=== PATIENT | male | born 1940 | race Caucasian/White ===

== ENCOUNTER 2021-11-21 11:40 | Emergency (ER) | payer MEDICARE, OTHER, SELFPAY ==
[2021-11-21 11:45] VITALS: BP 168/79; PULSE 75; RESP 18; TEMP 36.5; O2SAT 98; BMI 23.6
--- NOTE | 2021-11-21 11:59 | CRLHL7_ITS ---
For Patients: As a result of the Cures Act, medical imaging exams and procedure reports are released immediately into your electronic medical record. You may view this report before your referring provider. If you have questions, please contact your health care provider. INDICATION: Fall. COMPARISON: None. TECHNIQUE: Three view radiograph of left shoulder. FINDINGS: Partially visualized hemithorax is grossly unremarkable. Normal alignment. Joint spaces preserved. No fracture. IMPRESSION: No acute fracture or malalignment. Dictated by Chaparro Starks MD @ 11/21/2021 12:40:25 PM (Electronically Signed)
--- NOTE | 2021-11-21 12:00 | ED_ITS ---
HPI - General Adult General Chief complaint: Shoulder Injury/Pain Stated complaint: Fell, hurt left shoulder Time Seen by Provider: 11/21/21 11:52 History of Present Illness HPI narrative: This 81-year-old male comes in with report of injury to his left shoulder that occurred 3 days ago. He states that he fell onto his outstretched hand or arm and now has shoulder pain with an inability to abduct his left shoulder. He did not hit his head or have loss of consciousness. He does not report any other injury. He states that his right shoulder is due for a shoulder replacement and he is scheduled to have a CT scan done in 3 days for this shoulder. He is unable to raise his arm in empty can position but he can perform a lift-off and has normal internal and external rotation at adduction. Related Data Home Medications Medication Instructions Recorded Confirmed amlodipine 2.5 mg tablet 2.5 mg PO QDAY 10/12/21 11/04/21 atorvastatin 10 mg tablet 10 mg PO QDAY 10/12/21 11/04/21 esomeprazole magnesium 20 mg 20 mg PO QDAY 10/12/21 11/04/21 capsule,delayed release (Nexium) fexofenadine 60 mg tablet (Pam 60 mg PO Q12H 10/12/21 11/04/21 Allergy) finasteride 5 mg tablet 5 mg PO QDAY 10/12/21 11/04/21 tamsulosin 0.4 mg capsule 0.4 mg PO QDAY 10/12/21 11/04/21 Allergies Allergy/AdvReac Type Severity Reaction Status Date / Time No Known Allergies Allergy Unverified 11/04/21 13:54 Review of Systems Status of ROS: Reports: 10 or more systems reviewed and unremarkable except as noted in History and below Narrative: Constitutional: No fevers, no weight gain or loss. Eyes: No discharge. No vision changes. HENT: No congestion, no sore throat, no ear pain. Cardiovascular: No chest pain, no palpitations. Respiratory: No shortness of breath, no wheezes, no cough. Gastrointestinal: No abdominal pain, no vomiting, no diarrhea. Genitourinary: No dysuria, no hematuria. Musculoskeletal: Normal range of motion. Left shoulder pain with decreased range of motion. Skin: No rashes, no pruritis. Neurological: No dizziness, weakness, sensory change, speech change. Endo/Heme/Allergies: No bruising or bleeding. No polydipsia. Pysch: no suicidality, no anxiety, no insomnia. All other systems reviewed and are negative. [facility] Medical History (Updated 11/21/21 @ 13:06 by Gonzalo Ruelas MD) Acid reflux Anterior epistaxis Arthritis Elevated cholesterol FHx: bilateral hip replacements Hernia Kidney disease Social History Smoking Status: Former smoker Exam Narrative: Exam Narrative: Constitutional: Well-developed, well-nourished, no acute distress. HEENT: Normocephalic, atraumatic. Neck: Normal range of motion. Nontender. Supple. Heart: Intact distal pulses. Lungs: No chest discomfort. No wheezes, rhonchi, or rales. Abdomen: Nontender. Back: Normal range of motion. Extremities: Left shoulder has diffuse tenderness with no sign of deformity or effusion. Lift-off sign is normal. He has normal external and internal rotation at abduction but is unable to abduct his left arm. He is unable to raise his arm into an empty can position. Skin: Intact. No rash. Warm. No erythema or pallor. Neurologic: No altered sensation. No weakness. Alert and oriented. Psychiatric: No suicidality. No anxiety or depression. No insomnia. Nursing notes and vitals signs are reviewed. Const: Vital Signs, click to edit/add: Vital Signs - 24 hr 11/21/21 11:45 Temperature 97.7 F Pulse Rate [Right Pulse Oximeter] 75 Respiratory Rate 18 Blood Pressure [Le ft Upper Arm] 168/79 H Pulse Oximetry 98 Oxygen Delivery Me thod Room Air Course Vital Signs Vital signs: Initial Vital Signs Temperature 97.7 F 11/21/21 11:45 Temperature Source Temporal Artery Scan 11/21/21 11:45 Pulse Rate 75 11/21/21 11:45 Respiratory Rate 18 11/21/21 11:45 Blood Pressure 168/79 H 11/21/21 11:45 Blood Pressure Mean 108 11/21/21 11:45 Blood Pressure Position Sitting 11/21/21 11:45 Pulse Oximetry 98 11/21/21 11:45 Oxygen Delivery Method 11/21/21 11:45 Vital Signs Temperature 97.7 F 11/21/21 11:45 Pulse Rate 75 11/21/21 11:45 Respiratory Rate 18 11/21/21 11:45 Blood Pressure 168/79 H 11/21/21 11:45 Pulse Oximetry 98 11/21/21 11:45 Oxygen Delivery Method 11/21/21 11:45 Temperature 97.7 F 11/21/21 11:45 Pulse Rate 75 11/21/21 11:45 Respiratory Rate 18 11/21/21 11:45 Blood Pressure 168/79 H 11/21/21 11:45 Pulse Oximetry 98 11/21/21 11:45 Oxygen Delivery Method 11/21/21 11:45 Medical Decision Making MDM Narrative Medical decision making narrative: This patient comes in with an injury to his left shoulder. X-ray imaging shows no acute findings with respect to fracture or dislocation. His mechanism of injury is more suspicious for rotator cuff strain or tear. He is unable to raise his arm forward or laterally. Some of this is due to pain but there may be a ongoing deficit related to this fall. The patient was placed in a sling and a follow-up appointment is made with orthopedic clinic. Imaging Data XR L Shoulder: Radiologist's impression: No acute fracture or malalignment. Discharge Plan Discharge Clinical Impression: Tendinopathy of left rotator cuff Condition: Unchanged Additional Instructions: Follow-up with orthopedic clinic as scheduled. Wear sling and use [id number] pain medicines as needed and directed. Prescriptions: No Action atorvastatin 10 mg tablet 10 mg PO QDAY tamsulosin 0.4 mg capsule 0.4 mg PO QDAY esomeprazole magnesium [Nexium] 20 mg capsule,delayed release(DR/EC) 20 mg PO QDAY amlodipine 2.5 mg tablet 2.5 mg PO QDAY finasteride 5 mg tablet 5 mg PO QDAY fexofenadine [Pam Allergy] 60 mg tablet 60 mg PO Q12H Follow Up/Referrals: Provider,Not a Local [Referring] - Stand Alone Forms: [employer] Info Instructions
--- NOTE | 2021-11-21 13:19 | ED.NURSE ---
Patient scheduled with Dr. Winters for consult on 11/23/21 at 10:40, [facility] location. No questions/concerns about appt.
== END 2021-11-21 13:19 | disposition home or self-care (01) ==
PROVIDERS: Emergency Provider Emergency Medicine Emergency Medical Services; PCP Nurse Practitioner Family
DX: M25.512 Pain in left shoulder (principal); W19.XXXA Unspecified fall, initial encounter
CPT/HCPCS: 73030; 99283; 99284

== ENCOUNTER 2021-11-24 08:50 | Outpatient (CLI) | payer MEDICARE, OTHER, SELFPAY ==
--- OUTSIDE RECORDS SUMMARY | 2021-11-24 08:53 | XMS_ITS | Clinical Summary ---
:1940 Author Organization [employer] [facility] [place] [address] Care Team Providers Name Role Phone Sandrine Roque NP Primary Care Provider [phone] Allergies Active Allergy Reactions Severity Noted Date Comments Hydrocodone-Acetaminophen Hallucinations 01/01/2013 Lots of noise in head Medications Medication Sig Dispensed Refills Start End Date Status Date medication order composer FD baldev 0 Active (lei 1 oil and menthol) atorvastatin (LIPITOR) 10 Take 1 90 Tablet 3 Active mg tabletIndications: Tablet (10 1 Hypercholesterolemia mg) by mouth once daily. amLODIPine (NORVASC) 2.5 Take 1 90 Tablet 3 Active mg tabletIndications: Tablet (2.5 1 Essential hypertension mg) by mouth once daily. fexofenadine (Pam 0 Active Allergy) 180 mg tablet 2 finasteride (PROSCAR) 5 Take 1 90 Tablet 3 Active mg tabletIndications: Tablet (5 2 Frequent urination mg) by mouth every morning. tamsulosin (FLOMAX) 0.4 Take 1 90 Capsule 3 Active mg capsuleIndications: Capsule 2 BPH without urinary (0.4 mg) by obstruction mouth once daily in the afternoon. lei oil-levomenthol Take by 0 Active (FDgard) 25-20.75 mg cap mouth. 2 pantoprazole (PROTONIX) TAKE 1 180 Tablet 0 Active 40 mg delayed-release TABLET BY 2 tabletIndications: MOUTH IN Abdominal pain, LUQ (left THE MORNING upper quadrant), Chronic AND 1 GERD TABLET IN THE EVENING. TAKE BEFORE MEALS. pantoprazole (PROTONIX) Take 1 60 Tablet 0 Discontinued 40 mg delayed-release Tablet (40 2 22 tabletIndications: mg) by Abdominal pain, LUQ (left mouth in upper quadrant), Chronic the morning GERD and 1 Tablet (40 mg) in the evening. Take before meals. Active Problems Problem Noted Date Actinic keratosis 06/16/2021 Overview: Dec 22, 2011 Entered By: REJI DOLL Comment: Sees derm locally Hypertrophy of prostate without urinary obstruction an d other lower 06/16/2021 urinary tract symptoms (LUTS) Personal history of colonic polyps 06/16/2021 Sensorineural hearing loss (SNHL) 06/16/2021 Tinnitus 06/16/2021 Insomnia, idiopathic 06/16/2021 Stage 3a chronic kidney disease 01/21/2021 Anterior epistaxis 01/21/2021 Gastroesophageal reflux disease 08/04/2020 S/p nephrectomy 08/04/2020 Hyperlipidemia 08/04/2020 Essential hypertension 08/04/2020 Incisional hernia 12/11/2012 Resolved Problems Problem Noted Date Resolved Date Malignant neoplasm of right kidney, except renal pelvis 05/2606/16/2021 Encounters Date Type Specialty Care Team Description 11/21/2021 Orders Only Scanner <No scans attac hed> 11/10/2021 Refill Sandrine Roque Refill Re quest E, IMPLEMENTATION PROJECT COORDINATOR (Pantoprazole) 10/22/2021 Travel 10/20/2021 Office Visit Deion Villareal Consult (Abdom inal pain, MD Berhane worse when tryi ng to sleep at night, previous [facility] workup, sy mptoms x 10 years) 10/20/2021 Travel 10/19/2021 Telephone Brittani Bautista MBBS Follow U p 10/15/2021 Travel 10/14/2021 Office Visit Sandrine Roque Back Pain ; Abdominal E, IMPLEMENTATION PROJECT COORDINATOR Pain; Fatigue 10/13/2021 Travel 09/29/2021 Office Visit Natasha Gaines Consult (Funmi rn for MD Cristiane possible mesh r elated pain in hernia mesh) 09/28/2021 Travel 09/23/2021 Telephone Josias Aden MD Results 09/22/2021 Ancillary Procedure 09/22/2021 Travel 09/20/2021 Travel 09/17/2021 Office Visit Josias Aden MD Abdomin al Pain (Upper abdominal pain for several months. ); Leg Swelling (Ankle s swelling and so me numbness); Shou lder Pain/problem (R ight shoulder issues continue) 09/16/2021 Travel from Last 3 Months Immunizations Name Administration Dates Next Due COVID-19 vaccine ([employer] 12/31/2020, 05/27/2020, 30mcg/0.3mL) PF, MDV Influenza RIV4 (Age 18+ Years) 01/14/2019 PRESERV FREE Influenza Virus, Unspecified 12/22/2011 Influenza, High-dose Inactivated 12/31/2020, 11/23/2017, 02/2017, 01/05/2016, 01/06/2015, 12/16/2013, 01/04/2013, 12/14/2010 Influenza, IIV3 (Age 6-35 mos) 12/18/2009 Influenza, Inactivated AIIV4 (Age 65+ 01/20/2020 Years) Preserv Free Pneumococcal Poly,23-Valent 11/23/2017 (Pneumovax) Pneumococcal conj 13-Valent (Prevnar 01/06/2015 13) TD, UNSPECIFIED 12/22/2011 Tdap 01/09/2017 Zoster (Shingrix-RZV, recombinant) 04/05/2020, 02/05/2020 Zoster (Zostavax-ZVL, live) 01/03/2011, 10/25/2010 Social History Tobacco Use Types Packs/Day Years Used Date Former Smoker Smokeless Tobacco: Never Used Tobacco Cessation: Counseling Given: Yes Comments: 30 years ago Alcohol Use Standard Drinks/Week Comments Never 0 (1 standard drink = 0.6 oz pure alcoho l) Alcohol Habits Answer Date Recorded How often do you have a drink containing alcohol? Never 07/25/2020 How many drinks containing alcohol do you have on a typical Not asked day when you are drinking? How often do you have six or more drinks on one occasion? No t asked Comment: Not asked Sex Assigned at Date Recorded Male 10/10/2020 11:22 AM CDT Obstetrics History Last Filed Vital Signs Vital Sign Reading Time Taken Comments Blood Pressure 144/68 10/20/2021 2:43 PM CDT Pulse 70 10/20/2021 2:39 PM CDT Temperature 36.4 ??C (97.5 ??F) 09/30/2020 8:14 AM CDT Respiratory Rate 18 08/04/2021 10:53 AM CDT Oxygen Saturation 99% 10/20/2021 2:39 PM CDT Inhaled Oxygen Concentration - - Weight 77.5 kg (170 lb 12.8 oz) 10/20/2021 2:39 PM CDT Height 165.1 cm (5' 5) 06/16/2021 11:12 AM CDT Body Mass Index 28.42 06/16/2021 11:12 AM CDT Plan of Treatment Upcoming Encounters Date Type Specialty Care Team Description 11/30/2021 [place] [id number] [place], [place] [address] (Wo rk) 12/23/2021 Office Visit Brittani Bautista M [facility] [address] [place], [place] [address] (Wo rk) Health Maintenance Due Date Last Done Comments Influenza for age 65+ 11/25/2021 12/31/2020, 01/20/2020, 01/14/2019, Additional history exists Depression screening for age 12+ 01/21/2022 01/21/2021, , 11/06/2020 Medicare Wellness for age 65+ 01/21/2022 01/21/2021 BMI (ht and wt on same day) for 06/16/2022 06/16/2021, 12/26, age 18+ 11/06/2020, Additional history exists Tetanus booster 01/09/2027 01/09/2017, 12/22/2011 Tdap Completed 01/09/2017 Pneumococcal series for age 65+ Completed 11/23/2017, 12/25 Zoster (shingles) series for age Completed 04/05/2020, 01/2020, 50+ 01/03/2011, Additional history exists COVID-19 vaccine series Completed 07/07/2021, 12/31/2020, 05/27/2020, Additional history exists Procedures Procedure Name Priority Date/Time Associated Diagnosis Comme nts SCAN-RADIOLOGY REPORT 11/21/2021 12:00 Re sults for this AM CDT procedure are i n the results section. CBC WITH AUTO Routine 10/14/2021 12:09 Abdominal pain, LUQ Res ults for this DIFFERENTIAL PM CDT (left upper procedure are i n quadrant) the results section. COMP METABOLIC PANEL Routine 10/14/2021 12:09 Abdominal pain, LUQ Results for this PM CDT (left upper procedure are i n quadrant) the results section. CBC WITH AUTO Routine 10/14/2021 12:09 Abdominal pain, LUQ Res ults for this DIFFERENTIAL PM CDT (left upper procedure are i n quadrant) the results section. URINALYSIS Routine 10/14/2021 11:27 Acute low back pain, Res ults for this MICROSCOPIC AM CDT unspecified back procedure a re in pain laterality, the results unspecified whether section. sciatica present UA W/ SEDIMENT EXAM Routine 10/14/2021 11:27 Acute low back pa in, Results for this REFLEXED PER CRITERIA AM CDT unspecified back pr ocedure are in pain laterality, the results unspecified whether section. sciatica present XR SHOULDER 3 VIEWS Routine 09/22/2021 10:02 Chronic right Res ults for this RIGHT AM CDT shoulder pain procedure are in the results section. from Last 3 Months Results SCAN-RADIOLOGY REPORT (11/21/2021 12:00 AM CDT) Narrative This result has an attachment that is no t available. Scanner OTHER CBC WITH AUTO DIFFERENTIAL (10/14/2021 12:09 PM CDT) athologist Signature WHITE BLOOD 7.3 4.5 - 11.0 10/14/2021 [facility] COUNT thou/cu mm 12:12 PM CDT [facility] RED BLOOD COUNT 4.32 4.30 - 10/14/2021 [facility] 5.90 12:12 PM CDT [facility] mil/cu mm CLINIC HEMOGLOBIN 13.5 13.5 - 10/14/2021 [facility] 17.5 g/dL 12:12 PM CDT [facility] HEMATOCRIT 38.7 37.0 - 10/14/2021 [facility] 53.0 % 12:12 PM CDT [facility] MCV 90 80 - 100 10/14/2021 [facility] fL 12:12 PM CDT [facility] MCH 31.3 26.0 - 10/14/2021 [facility] 34.0 pg 12:12 PM CDT [facility] MCHC 34.9 32.0 - 10/14/2021 [facility] 36.0 g/dL 12:12 PM CDT [facility] RDW 13.0 11.5 - 10/14/2021 [facility] [employer] 15.5 % 12:12 PM CDT [facility] PLATELET COUNT 170 140 - 440 10/14/2021 [facility] thou/cu mm 12:12 PM CDT [facility] MPV 9.8 6.5 - 11.0 10/14/2021 [facility] fL 12:12 PM CDT [facility] NEUTROPHILS 70.5 % 10/14/2021 [facility] 12:12 PM CDT [facility] LYMPHOCYTES 18.5 % 10/14/2021 [facility] 12:12 PM CDT [facility] MONOCYTES 8.8 % 10/14/2021 [facility] 12:12 PM CDT [facility] EOSINOPHILS 1.2 % 10/14/2021 [facility] 12:12 PM CDT [facility] BASOPHILS 1.0 % 10/14/2021 [facility] 12:12 PM CDT [facility] ABSOLUTE 5.1 1.7 - 7.0 10/14/2021 [facility] NEUTROPHILS thou/cu mm 12:12 PM CDT [facility] ABSOLUTE 1.4 0.9 - 2.9 10/14/2021 [facility] LYMPHOCYTES thou/cu mm 12:12 PM CDT [facility] ABSOLUTE 0.6 <0.9 10/14/2021 [facility] MONOCYTES thou/cu mm 12:12 PM CDT [facility] ABSOLUTE 0.1 <0.5 10/14/2021 [facility] EOSINOPHILS thou/cu mm 12:12 PM CDT [facility] ABSOLUTE 0.1 <0.3 10/14/2021 [facility] BASOPHILS thou/cu mm 12:12 PM CDT [facility] Specimen Anatomical Collection Method / Collection Time Recei iris Time (Source) Location / Volume Laterality Blood BLOOD SPECIMEN / Venipuncture / 10/14/2021 12:09 10/14 Unknown Unknown PM CDT 12:09 PM CDT Sandrine Roque IMPLEMENTATION PROJECT COORDINATOR HEMATOLOGY Performing Organization Address City/State/ZIP Code Phon e Number [facility] [id number] [place] [phone] CLINIC (ABNORMAL) COMP METABOLIC PANEL (10/14/2021 12:09 PM CDT) [facility] Method Time Signature SODIUM 131 (L) 135 - 145 10/15/2021 [facility] [employer] mmol/L 1:58 AM CDT [facility] POTASSIUM 4.5 3.5 - 5.0 10/15/2021 [facility] [employer] mmol/L 1:58 AM CDT [facility] CHLORIDE 99 98 - 110 10/15/2021 [facility] [employer] mmol/L 1:58 AM CDT [facility] CO2,TOTAL 20 (L) 21 - 31 10/15/2021 [facility] mmol/L 1:58 AM CDT [facility] ANION GAP 12 5 - 18 10/15/2021 [facility] [employer] 1:58 AM CDT [facility] GLUCOSE 116 (H) 65 - 100 10/15/2021 [facility] mg/dL 1:58 AM CDT [facility] CALCIUM 9.4 8.5 - 10/15/2021 [facility] [employer] 10.5 1:58 AM CDT [facility] mg/dL [facility] BUN 15 8 - 25 10/15/2021 [facility] mg/dL 1:58 AM CDT [facility] CREATININE 1.41 (H) 0.72 - 10/15/2021 [facility] [employer] 1.25 1:58 AM CDT [facility] mg/dL [facility] BUN/CREAT RATIO 11 10 - 20 10/15/2021 [facility] [employer] 1:58 AM CDT [facility] ALBUMIN 3.9 3.2 - 4.6 10/15/2021 [facility] [employer] g/dL 1:58 AM CDT [facility] PROTEIN,TOTAL 7.6 6.0 - 8.0 10/15/2021 [facility] g/dL 1:58 AM CDT [facility] GLOBULIN 3.7 2.0 - 3.7 10/15/2021 [facility] g/dL 1:58 AM CDT [facility] A/G RATIO 1.1 1.0 - 2.0 10/15/2021 [facility] 1:58 AM CDT [facility] BILIRUBIN,TOTAL 0.7 0.2 - 1.2 10/15/2021 [facility] mg/dL 1:58 AM CDT [facility] ALK PHOSPHATASE 79 50 - 136 10/15/2021 [facility] [employer] IU/L 1:58 AM CDT [facility] ALT (SGPT) 17 8 - 45 10/15/2021 [facility] IU/L 1:58 AM CDT [facility] AST (SGOT) 25 2 - 40 10/15/2021 [facility] IU/L 1:58 AM CDT [facility] eGFR 50 (L) >90 10/15/2021 [employer] mL/min/1. 1:58 AM CDT [facility] 73m2 [facility] Comment: As of 2021, eGFR is calcu lated by the CKD-EPI creatinine equation without race adjustment. eGFR can be inf luenced by muscle mass, exercise, and diet. The reported eGFR is an estimation only and is only applicable if the renal function is stable. Specimen Anatomical Collection Method / Collection Time Recei iris Time (Source) Location / Volume Laterality Blood BLOOD SPECIMEN / Venipuncture / 10/14/2021 12:09 10/14 Unknown Unknown PM CDT 12:09 PM CDT Sandrine Roque NP CHEMISTRY Performing Organization Address City/State/ZIP Code Phon e Number [facility] [address] [place] [address] [facility] [address] LAB[facility]ATORY URINALYSIS MICROSCOPIC (10/14/2021 11:27 AM CDT) P athologist Signature RBC 0-2 0-2, None 10/14/2021 [employer] Seen /HPF 11:38 AM CDT [facility] WBC 3-5 0-2, 3-5, 10/14/2021 [facility] None Seen 11:38 AM CDT [facility] /HPF CLINIC BACTERIA Few None Seen, 10/14/2021 [facility] Rare, Few 11:38 AM CDT [facility] Bacteria/H CLINIC PF EPITHELIAL Few None Seen, 10/14/2021 [facility] CELLS Few 11:38 AM CDT [facility] Epi/HPF CLINIC Specimen Anatomical Collection Method Collection Time Receive d Time (Source) Location / / Volume Laterality Urine URINE SPECIMEN / Non-Blood / 10/14/2021 11:27 022 Unknown Unknown AM CDT 11:27 AM CDT Sandrine Roque NP URINE Performing Organization Address City/State/ZIP Code Phon e Number [facility] [address] [place] [phone] CLINIC (ABNORMAL) UA W/ SEDIMENT EXAM REFLEXED PER CRITERIA (10/14/2021 11:27 AM CDT) [facility] Method Time Signature COLOR Yellow Yellow Color 10/14/2021 [facility] 11:38 AM [facility] CLARITY Clear Clear 10/14/2021 [facility] Clarity 11:38 AM [facility] SPECIFIC 1.010 1.010, 10/14/2021 [facility] GRAVITY,URINE 1.015, 11:38 AM [facility] 1.020, 1.025 T CLINIC PH,URINE 6.5 6.0, 7.0, 10/14/2021 [facility] 8.0, 5.5, 11:38 AM [facility] 6.5, 7.5, T CLINIC 8.5 UROBILINOGEN, Normal Normal EU/dl 10/14/2021 [facility] HEALT H QUALITATIVE 11:38 AM [facility] PROTEIN, Trace (A) Negative 10/14/2021 [facility] URINE mg/dL 11:38 AM [facility] GLUCOSE, Negative Negative 10/14/2021 [facility] URINE mg/dL 11:38 AM [facility] KETONES,URINE Negative Negative 10/14/2021 [facility] mg/dL 11:38 AM [facility] BILIRUBIN,URI Negative Negative 10/14/2021 [facility] NE 11:38 AM [facility] OCCULT Negative Negative 10/14/2021 [facility] BLOOD,URINE 11:38 AM [facility] NITRITE Negative Negative 10/14/2021 [facility] 11:38 AM [facility] LEUKOCYTE Moderate (A) Negative 10/14/2021 [facility] ESTERASE 11:38 AM [facility] Specimen Anatomical Collection Method Collection Time Receive d Time (Source) Location / / Volume Laterality Urine URINE SPECIMEN / Non-Blood / 10/14/2021 11:27 022 Unknown Unknown AM CDT 11:27 AM CDT Sandrine Lupe Mya [place] URINE Performing Organization Address City/State/ZIP Code Phon e Number [facility] [address] [place] [phone] CLINIC XR SHOULDER 3 VIEWS RIGHT (09/22/2021 10:02 AM CDT) Anatomical Region Laterality Modality SHOULDERS, SHOULDER R Computed Radiograp hy Specimen (Source) Anatomical Collection Method Collection Time Re ceived Time Location / / Volume Laterality 09/22/2021 2:10 PM CDT Narrative 09/22/2021 2:10 PM CDT For Patients: ??As a result of the Cures Act, medical imaging exams and procedure report s are released immediately into your [email or web address] medical record. ??You may view this report before your referring provider. ??If you have questions, please contact your health care provider. Indication: Chronic right shoulder pain. Three Technique: Three views. Comparison: None. Findings/Impression: Mild glenohumeral joint space narrowing. Moderate degenerative changes AC joint. Superior displacement of the humeral head likely due to chronic full-thickness rotator cuff tears. Generalized osseous demineralization. No fracture. Dictated by Arpit Valdivia MD @ Sep 22 ??2:10PM (Electronically Signed) ?? Procedure Note Arpit Valdivia MD - 09/22/2021Form atting of this note might be different from the original. For Patients: As a result of the Cures Act, medical imaging exams and procedure reports are released immediately into your electronic medical record. You may view this report before your referring provider. If you have questions, please contact [facility] health care provider. Indication: Chronic right shoulder pain. Three Technique: Three views. Comparison: None. Findings/Impression: Mild glenohumeral joint space narrowing. Moderate degenerative changes AC joint. Superior displacement of the humeral head likely due to chronic full-thickness rotator cuff tears. Generalized osseous demineralization. No fracture. Dictated by Arpit Valdivia MD @ Sep 22 2:10PM (Electronically Signed) Josias Aden MD GENERAL IMAGING from Last 3 Months Insurance Payer Benefit Plan / Subscriber ID Effective Dates Phone Addre ss Type Group MEDICARE PART B MEDICARE PART B [id number] 2012-Present ATTN: CLAIMS - HB USE ONLY HB ONLY [address] [place] [address] MEDICARE - PB MEDICARE PB [id number] 2004-Presen ATT N: CLAIMS USE ONLY ONLY t [address] [place] [address] FOR [id number] 2013-Prese [address] [facility] [place] [address] Care Teams Associate Professor Of Physics Relationship Specialty Start Date End Date Sandrine Roque NP PCP - General Nurse Practitioner 11/06/20 [address] [place] [address]
--- OUTSIDE RECORDS SUMMARY | 2021-11-24 08:53 | XMS_ITS | Continuity of Care Document ---
:1940 Author Organization [facility] Care Team Providers Name Role Phone [facility] Unavailable Unavailable Problems Combined list of problems from Department of Defense and 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 It does not include entries that were removed or entered in error. 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 [facility] Reflux Disorder [facility] Hyperlipidemia Active Condition MAX J Terell [facility] Hypertrophy (Benign) Active Condition [facility] of Prostate without [facility] Urinary obstruction and other lower Uri Nonspecific abnormal Active Condition [facility] electrocardiogram [facility] (ECG) (EKG) (ICD-9-CM 794.31) Personal History of Active Condition MAX JTerell [place] Colonic Polyps [facility] SENSORNEUR HEARING Active Condition [facility] NOS [facility] SURGERY Active Condition Dec 21, DARCI SOSA 2011 Entered [facility] By: Miky DOLL Comment: SP cholycystecto my, ventral hernia repair, tonsillectomy , Dec 22, 2011 Entered By: Miky DOLL Comment: SP appendectomy, right KAYLA times two, left KAYLA, Dec 22, 2011 Entered By: Miky DOLL Comment: SP right nephrectomy, partial colectomy Tinnitus * (ICD-9-CM Active Condition [facility] 388.30) HCS Diagnosis: ICD-10-CM active Diagnosis [place] H90.3 [facility]ural [facility] hearing loss, bilateralwith Provider Comments: Sensorineural hearing loss, bilateral Medications Combined list of outpatient medications from Department of Defense and 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 Medications provided include 1) outpatient medications from the last 15 months, and 2) patient-reported medications. Medication Details Route Status Patient Prescription Prescription Last Ordering Order Source Instructions Expires Number Dispense Provider Date Date AMLODIPINE Active [id number] ORTEGA 11 1/ Pharmac BESYLATE 2020 y Data (AMLODIPINE Transac BESYLATE), tion 2.5 MG, Service TABLET, Facilit ORAL, y [facility] [employer], 1000 ea. BOTTLE AMLODIPINE Active [id number] ORTEGA 02/24 3/ Pharmac BESYLATE 2020 Data (AMLODIPINE Transac BESYLATE), tion 2.5 MG, Service TABLET, Facilit ORAL, y [employer], 1000 ea. BOTTLE AMLODIPINE Active [id number] ORTEGA 02/2 5/ Pharmac BESYLATE 2021 y Data (AMLODIPINE Transac BESYLATE), tion 2.5 MG, Service TABLET, Facilit ORAL, y [employer], 1000 ea. BOTTLE AMLODIPINE Active [id number] ORTEGA 10/26 2/ Pharmac BESYLATE 2021 Data (AMLODIPINE Transac BESYLATE), tion 2.5 MG, Service TABLET, Facilit ORAL, EPIC [email or web address], 1000 ea. BOTTLE AMLODIPINE Active [id number] ORTEGA 06/0 1/ Pharmac BESYLATE 2 ,2021 y Data (AMLODIPINE Transac BESYLATE), tion 2.5 MG, Service TABLET, Facilit ORAL, y [employer], 1000 ea. BOTTLE AMLODIPINE Active [id number] ORTEGA 12/25 1/ Pharmac BESYLATE , 2020 y Data (amlodipine Transac besylate), tion 2.5 MG, Service TABLET, Facilit ORAL, LUPIN y PHARMACE[facility], 90 ea. BOTTLE AMLODIPINE Active [id number] LUZ, 09/20/ Pharmac BESYLATE 1 2020 y Data (amlodipine Transac besylate), tion 2.5 MG, Service TABLET, Facilit ORAL, LUPIN y [facility]ARMACE[facility], 90 ea. BOTTLE AMLODIPINE Active [id number] LUZ, 10/14/ Pharmac BESYLATE 1 2020 y Data (amlodipine Transac besylate), tion 2.5 MG, Service TABLET, Facilit ORAL, LUPIN y [facility]ARMACE[facility], 90 ea. BOTTLE AMLODIPINE Active [id number] LUZ, 11/07/ Pharmac BESYLATE 1 2020 y Data (amlodipine Transac besylate), tion 2.5 MG, Service TABLET, Facilit ORAL, LUPIN y [facility]ARM[facility], 90 ea. BOTTLE AMLODIPINE Active [id number] LUZ, 12/05/ Pharmac BESYLATE 1 2020 y Data (amlodipine Transac besylate), tion 2.5 MG, Service TABLET, Facilit ORAL, LUPIN y [facility]ARMACE[facility], 90 ea. BOTTLE ASPIRIN TAKE ONE ORAL ACTIVE ROSANA, 12/20/ MAX J. 81MG TAB,EC TABLET NIELS Medrano 2011 [place] BY MOUTH [facility] DAILY ATORVASTATI TAKE ORAL ACTIVE ROSANA, 12/20/ MA X J. N CA 20MG ONE-HALF NIELS Medrano 2011 [facility] TAB TABLET [facility] BY MOUTH DAILY ATORVASTATI Active [id number] ORTEGA / Pharmac N CALCIUM 1 ,2020 y Data (atorvastat Transac in tion calcium), Service 10 MG, Facilit TABLET, y ORAL, [employer] 1000 ea. BOTTLE ATORVASTATI Active [id number] ORTEGA / Pharmac N CALCIUM 2 ,2021 y Data (atorvastat Transac in tion calcium), Service 10 MG, Facilit TABLET, y ORAL, [employer] 1000 ea. BOTTLE ATORVASTATI Active [id number] ORTEGA / Pharmac N CALCIUM 2 ,SHAHNAZ2021 y Data (atorvastat Transac in tion calcium), Service 10 MG, Facilit TABLET, y ORAL, [employer] 1000 ea. BOTTLE ATORVASTATI Active [id number] ORTEGA / Pharmac N CALCIUM 2 ,SHAHNAZ2021 y Data (atorvastat Transac in tion calcium), Service 10 MG, Facilit TABLET, y ORAL, [employer] 1000 ea. BOTTLE CEPHALEXIN Active [id number] MACARIO, 06/20 / Pharmac (CEPHALEXIN 2 2021 y Data MONOHYDRATE Transac ), 500MG, tion CAPSULE, Service ORAL, TEVA Facilit [employer], 500 y ea. BOTTLE FINASTERIDE Active [id number] PALOMA, 05/09/ Pharmac (FINASTERID 2 2021 y Data E), 5 MG, Transac TABLET, tion ORAL, Service CAMBER Facilit PHARMACE, y 30 ea. BOTTLE FINASTERIDE Active [id number] PALOMA, Pharmac (FINASTERID 2 2021 y Data E), 5 MG, Transac TABLET, tion ORAL, Service CAMBER Facilit PHARMACE, y 30 ea. BOTTLE FINASTERIDE Active [id number] PALOMA, Pharmac (FINASTERID 2 2021 y Data E), 5 MG, Transac TABLET, tion ORAL, Service CAMBER Facilit PHARMACE, y 30 ea. BOTTLE IPRATROPIUM SPRAY 1 NASAL ACTIVE ROSANA, 12/20/ DARCI J. BR 0.03% SPRAY IN NIELS Medrano 2011 [place],DUANE, EACH [facility] NASAL NOSTRIL EVERY DAY NEEDED LISINOPRIL Active [id number] UTECH, Pharmac (lisinopril 1 2020 y Data ), 10 MG, Transac TABLET, tion ORAL, LUPIN Service PHARMACEU, Facilit 1000 ea. y BOTTLE NORTRIPTYLI Active [id number] ORTEGA Pharmac NE HCL 1 , 2020 y Data (nortriptyl Transac ine HCl), tion 25 MG, Service CAPSULE, Facilit ORAL, TARO y PHARM [employer], 100 ea. BOTTLE NORTRIPTYLI Active [id number] UTECH, 12/03/ Pharmac NE HCL 1 2020 y Data (nortriptyl Transac ine HCl), tion 25 MG, Service CAPSULE, Facilit ORAL, TARO y PHARM [employer], 100 ea. BOTTLE OMEPRAZOLE TAKE 1 ORAL ACTIVE ROSANA 12/20/ MELLISA Carroll 20MG CAP,EC CAPSULE NIELS Medrano 2011 [facility] [facility] BY MOUTH [facility] DAILY PANTOPRAZOL Active [id number] ORTEGA 08/ 23/ Pharmac E SODIUM 2 , 2021 y Data (PANTOPRAZO Transac LE SODIUM), tion 40 MG, Service TABLET , Facilit ORAL, y MYLAN, 90 ea. BOTTLE PANTOPRAZOL Active [id number] ORTEGA / Pharmac E SODIUM 2 , 2021 y Data (PANTOPRAZO Transac LE SODIUM), tion 40 MG, Service TABLET , Facilit ORAL, y MYLAN, 90 ea. BOTTLE TAMSULOSIN Active [id number] ORTEGA 11 1/ Pharmac HCL 1 ,2020 y Data (tamsulosin Transac HCl), 0.4 tion MG, Service CAPSULE, Facilit ORAL, MAJOR y PHARMACEU, 90 ea. BOTTLE TAMSULOSIN Active [id number] ORTEGA 8/ Pharmac HCL 2 ,2021 y Data (tamsulosin Transac HCl), 0.4 tion MG, Service CAPSULE, Facilit ORAL, MAJOR y PHARMACEU, 90 ea. BOTTLE TAMSULOSIN Active [id number] ORTEGA 08/25 7/ Pharmac HCL 2 ,2021 y Data (tamsulosin Transac HCl), 0.4 tion MG, Service CAPSULE, Facilit ORAL, MAJOR y PHARMACEU, 90 ea. BOTTLE TAMSULOSIN Active [id number] ORTEGA 10/26 2/ Pharmac HCL 2 ,2021 y Data (tamsulosin Transac HCl), 0.4 tion MG, Service CAPSULE, Facilit ORAL, MAJOR y PHARMACEU, 90 ea. BOTTLE TAMSULOSIN TAKE 1 ORAL ACTIVE ROSANA, 12/20/ MELLISA X J. HCL 0.4MG CAPSULE NIELS Medrano 2011 [place] CAP BY MOUTH [facility] DAILY Immunizations Combined list of available immunizations from the Department of Defense and 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 Immunization Series Date Administered Site Reaction Lot CVX Drug St atus Comments Source Given By Number Code Bulk Sealer zoster 04/05/ DONG, () Not zoster DoD recombinant 2020 Given recombin a nt zoster 02/04/ BRISEIDAT, () Not zoster D oD recombinant 2019 Given recombin a nt INFLUENZA, complet MAX J. UNSPECIFIED 2011 ed [facility] FORMULATION [facility] TD(ADULT) complet San[employer]i MAX J. UNSPECIFIED 2011 ed Pastuer [facility] FORMULATION [id number] [facility] [id number] ZOSTER LIVE complet [facility]. 2010 ed [facility] Encounters Combined list of: 1) Encounters from Department of Veterans Affairs facilities going back up to the last 18 months, not all VA inpatient encounters are included; 2) Encounters from the Department of Defense facilities going back up to 280 months. Location Location Encounter Encounter Reason Attending ADM DC Stat us Disposition Source Details Type Number For Provider Date Date Visit HEARING 41018-9.61 Diagnos SHORT,BR 04/05 [place] AID CHECK [id number] is: IDGET M CORY [facility] BOTH E[facility] ICD-10- HCS CM H90.3 Sensori neural hearing loss, bilater al
with Provide r Comment s: Sensori neural hearing loss, bilater al Outpatient [id number] 05/27 [place] [facility] Encounter [id number] [facility] HC PRO 88147-4.61 Diagnos ODEGARD,TH 06/15 M [place] PHONE CALL [id number] is: OMAS OLIS [facility] 5-10 MIN ICD-10- HCS CM H90.3 Sensori neural hearing loss, bilater al
with Provide r Comment s: Sensori neural hearing loss, bilater al Social History Combined list of available smoking, tobacco, and other social history from Department of Defense and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 Social History Type Response Date Comment Source Tobacco smoking status FORMER TOBACCO USER 7Y 12/22/2011 DARCI VALERA [facility] NHIS OR GREATER This section is an [facility] empty social history section.
== END 2021-11-24 08:51 | disposition home or self-care (01) ==
LOC: CT 08:51
PROVIDERS: PCP Nurse Practitioner Family; Visit Provider Orthopaedic Surgery Sports Medicine
DX: M19.011 Primary osteoarthritis, right shoulder (principal); M19.012 Primary osteoarthritis, left shoulder
CPT/HCPCS: 73200

== ENCOUNTER 2021-12-29 09:33 | Day surgery (SDC) | payer MEDICARE, OTHER, SELFPAY ==
[2021-12-29] VITALS (23 sets, daily range): BP systolic 129–181; BP diastolic 56–106; PULSE 63–103; RESP 14–20; TEMP 35.8–36.6; O2SAT 90–100; BMI 27.4
[2021-12-29] MEDS: ACETAMINOPHEN 500 MG TABLET 1000 MG PO (09:39)
[2021-12-29] MEDS: LACTATED RINGERS 1000 ML 1,000 ML 100 ML IV (10:00)
[2021-12-29] MEDS: SODIUM CHLORIDE 0.9 % (FLUSH) 10 ML SYRINGE IVF (11:09)
--- NOTE | 2021-12-29 12:32 | SUR.PREOP ---
TIME?OUT:?1232 PT/RN/MDA?VERIFICATION?OF?SURGICAL?SITE,?PROCEDURE,?AND?CONSENT OBTAINED?PRIOR?TO?INVASIVE?PROCEDURE.
[2021-12-29] MEDS: MIDAZOLAM HCL 1 MG/ML inj IVP (12:33)
[2021-12-29] MEDS: fentaNYL 100 MCG/2 ML inj IVP (12:33)
--- NOTE | 2021-12-29 14:15 | P.NB_ITS ---
Nerve Block Nerve Block Time Seen by Provider: 12:00 Date Seen: 12/29/21 Type of block requested by surgeon for post-operative analgesia: supraclavicular Side: left Time out performed: Yes Verification of patient name: Yes Verification of date of : Yes Site marking: site marked Name of person performing procedure: Vasquez Dailey Continuous monitoring Was continuous monitoring of O2 sat, B/P, cardiac rehabilitation specialist, recorded every 15 minutes?: Yes Procedure Checklist: sterile prep, needles and gloves Ultrasound guided. Images saved: Yes Medications given in 5ml increments after negative aspiration: Ropivicaine %: 0.5 mL: 20 Needle gauge: 20 Decadron (mg): 10 Precedex (mcg): 25 Patient tolerated procedure well: Yes Block Charges Block Charge (with Pro Fee): Brachial Plexus Use of Ultrasound Machine for Block: Yes- US Guidance/pain block
--- NOTE | 2021-12-29 14:57 | P.ORPRC_ITS ---
Procedure Note Date of procedure: 12/29/21 Procedure: PREOPERATIVE DIAGNOSIS: 1. Left shoulder irrepairable massive rotator cuff tear with atrophy POSTOPERATIVE DIAGNOSIS: 1. Left shoulder irrepairable massive rotator cuff tear with atrophy PROCEDURE: 1. Left reverse shoulder arthroplasty. SURGEON: Panchito Nur MD. SPRING INSPECTOR: Tyrone GO - Of note, a skilled child and youth program assistant was critical for this case to aid in patient positioning, tissue retraction, limb manipulation/positioning, retraction for glenoid exposure, which was challenging, awareness and protection of critical structures, and closure. ANESTHESIA: General plus supraclavicular block IMPLANTS: DJ0 surgical Altivate humeral stem size 12 standard shell, short with P2 porous coating vitamin E neutral poly small socket insert RSP glenoid base plate P2 porous coating with 3 perimeter locking screws 32 neutral glenosphere with retaining screw COMPLICATIONS: None evident INDICATIONS: The patient is a pleasant 81-year-old male who has experienced severe left shoulder pain and difficulty with use. Workup included imaging which revealed severely deficient rotator cuff. There is significant atrophy with this as well making it irrepairable. Physical exam was consistent with associated pain. Given the deformity, the dysfunction, and the pain, and failure of nonoperative management, recommendation was made for surgery. DESCRIPTION OF PROCEDURE: Following a thorough discussion of risks, benefits, and alternatives, consent was obtained and the left shoulder was marked. The patient was brought to the operating room and placed supine on the operating table. Induction of anesthesia was undertaken. 2 g IV Ancef and 1 g tranexamic acid was administered within 1 hr of incision preoperatively. Appropriate time- out was performed identifying proper patient, site, and procedure. The operative extremity was prepped and draped in the appropriate sterile fashion using ChloraPrep after the patient was positioned in the lazy beach chair position with head in neutral alignment and all bony prominences well padded. A longitudinal incision was made for deltopectoral approach. Deltoid was retracted laterally. Cephalic vein was retracted laterally as well and protected throughout the case. The clavipectoral fascia was identified and divided longitudinally staying lateral to the conjoined tendon / coracoid. The conjoined tendon was protected with a blunt Hohmann. The biceps tendon was then identified consistent with previous rupture. The upper 1/5 of the pectoralis major was also released from its insertion. The rotator cuff was inspected and found to have good integrity with the subscapularis but fair integrity with a supraspinatus], and a decision for a reverse shoulder arthroplasty was confirmed. A subscapularis cuff of tissue was left via tenotomy for later repair with the remaining subscapularis released in a subperiosteal fashion with the Bovie. This was tagged for later repair. The 3 sisters were cauterized. The upper subscapularis was released from the capsule with a curved Morrison scissors towards the glenoid. The inferior subscapularis was divided from the capsular tissue on its caudal surface with particular caution for the axillary nerve. This was palpated anterior to the subscapularis both prior to and near the finish of the case. Inferior humeral head osteophytes were excised with caution taken throughout the case with regards to the axillary nerve. The humerus was disl ocated, and humeral head cut completed. The Sizer was placed and the central drill hole created. Then a protector plate was applied. We turned our attention to the glenoid. The humerus was retracted posteriorly. The subscap was protected anteriorly and the labrum/long head biceps origin was excised circumferentially. The capsule was released along the anterior and inferior portions of the glenoid cautiously with a Nj elevator being careful not to penetrate deep. The glenoid had appropriate exposure, and was prepared with the cannulated system with a target of approximately 5-10? of inferior tilt and neutral anteversion (patient had 6 ? of retroversion initially). After placing the guide pin, the tap was placed followed by the glenoid reaming with the 2 different sized Reamer. Following this, preparation was complete with this central drill, the real base plate was opened, and inserted, and excellent purchase was achieved with the central screw. Peripheral screws were then drilled, measured, and placed accordingly again achieving excellent purchase. The glenosphere was then placed consistent with the preoperative plan utilizing the above noted glenosphere. After secur ing the glenosphere with the locking torque limited screw, attention was turned back to the humerus. A canal finer was placed followed by various reamers. The real humeral stem was then opened and inserted with excellent metaphyseal fit and stability. Trial poly was placed and the shoulder reduced. Excellent reduction and stability achieved. At this stage, the trial implants were removed, and the real implants inserted. A 3 minute Betadine soak was performed followed by a thorough irrigation with normal saline. Subscapularis was repaired with #1 PDS to the cuff of tissue on the lesser tuberosity. Excellent reapproximation of tissue achieved. A single far lateral rotator cuff interval suture was placed with # 0 Vicryl. Hemostasis was found to be appropriate. The deltopectoral interval was reapproximated with 0 Vicryl, subcutaneous and subcuticular closure was then performed with number 2-0 Vicryl and 4-0 Monocryl, respectively. A skilled child and youth program assistant was critical for this case to aid in patient positioning, tissue retraction, limb manipulation/positioning, retraction for glenoid exposure, which was challenging, awareness and protection of critical structures, and closure. PLAN: 1. Sling at all times for the operative upper extremity. 2. AROM of elbow, forearm, wrist, and digits as tolerated. 3. PT/OT consults for education and assistance. 4. Social consult for discharge planning. 5. 23 hr perioperative antibiotics. 6. Early ambulation, and SCDs for DVT prophylaxis. 7. Admit to the hospital for the above 8. Analgesics p.r.n.
--- NOTE | 2021-12-29 15:02 | CRLHL7_ITS ---
For Patients: As a result of the Cures Act, medical imaging exams and procedure reports are released immediately into your electronic medical record. You may view this report before your referring provider. If you have questions, please contact your health care provider. Indication: Postop Technique: Two views left shoulder Comparison: No comparison Findings: Left humeral arthroplasty appears satisfactory position. No hardware complication seen. Postoperative soft tissue gas and swelling. Dictated by Connie Pina MD @ 12/30/2021 8:24:54 AM (Electronically Signed)
--- NOTE | 2021-12-29 15:27 | W.ANESCHARGE ---
Anesthesia Charges Start Date/Time Anesthesia Start Date: 12/29/21 Anesthesia Start Time: 15:28 Stop Date/Time Anesthesia Stop Date: 12/29/21 Anesthesia Stop Time: 15:16 Summary Emergency: No Extremes of Age: Over 69-CPT 46810
--- NOTE | 2021-12-29 16:21 | P.IMCN_ITS ---
Date of Consult Patient: Lorrie Patient Consult date: 12/29/21 Primary Care Provider: Sandrine Roque, MEDICAL LABORATORY ASSISTANT, PAYROLL ACCOUNTING CLERK Consult Narrative Reason for consult: Medical management of comorbidities Narrative: Henry Sandra is a 81 year old male who presented to the hospital today for an elective left shoulder with Dr. Winters of Orthopedic surgery. No surgical or anesthetic complications noted today. Patient has a past medical history of hyperlipidemia, GERD, renal cell carcinoma status post nephrectomy, CKD, hearing loss (wears hearing aids), BPH. Previous history of hypertension, but was having symptomatic hypotension and his auto adjudication specialist recently stopped his amlodipine. Home blood pressures have been stable. Henry is no history of DVT or PE, he has never had a blood transfusion. He is a former smoker and quit remotely, he does not drink alcohol. Has received 4 COVID vaccines. 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 Review of Systems Status of ROS: Reports: 10 or more systems reviewed and unremarkable except as noted in History and below [facility] Medical History (Updated 12/28/21 @ 09:11 by Luda Soto RN) Acid reflux Anterior epistaxis Arthritis Elevated cholesterol History of revision of total replacement of right hip joint Hypertension Hypertrophy of prostate without urinary obstruction Stage 3 chronic kidney disease Ventral hernia Surgical History (Updated 12/28/21 @ 09:11 by Luda Soto RN) History of appendectomy History of bowel resection History of incisional hernia repair History of left hip replacement History of right hip replacement History of right nephrectomy Hx laparoscopic cholecystectomy Family History (Updated 12/21/21 @ 08:37 by Britni Salcido RN) Father CHF (congestive heart failure) Mother COPD (chronic obstructive pulmonary disease) Sister Congenital hip deformity Social History Smoking Status: Former smoker Do you use any of these nicotine containing products: None How often do you have a drink containing alcohol: monthly or less Alcohol type: beer How many standard drinks containing alcohol do you have on a typical day: 1 or 2 How often do you have six or more drinks on one occasion: Never AUDIT-C Alcohol total score: 1 Non-prescribed substance use: denies use Caffeine: No Meds Home Medications and Allergies Home Medications Medication Instructions Recorded Confirmed Type atorvastatin 10 mg tablet 10 mg PO HS 10/12/21 12/29/21 History fexofenadine 60 mg tablet (Pam 60 mg PO Q12H 10/12/21 12/29/21 History Allergy) finasteride 5 mg tablet 5 mg PO DAILY 10/12/21 12/29/21 History tamsulosin 0.4 mg capsule 0.4 mg PO DAILY 10/12/21 12/29/21 History gabapentin 100 mg capsule 200 mg PO HS 12/29/21 12/29/21 History pantoprazole 40 mg tablet,delayed 40 mg PO BID 12/29/21 12/29/21 History release Allergies Allergy/AdvReac Type Severity Reaction Status Date / Time acetaminophen [From Vicodin] Allergy Verified 12/29/21 09:52 hydrocodone [From Vicodin] Allergy Verified 12/29/21 09:52 Exam Narrative: Exam Narrative: GEN: Alert and oriented, sitting comfortably in bed and answering questions appropriately HEENT: Normal external ears, EOMIs bilaterally, no scleral icterus CV: RRR, No concerning murmurs, rubs, or gallops R: LCTA bilaterally without concerning wheezing, rales, or rhonchi Ext: wwp, no concerning edema Skin: No concerning skin lesions or rashes on exposed skin Neuro: Nonfocal Psych: Appropriate Const: Vital Signs, click to edit/add: Vital Signs - 24 hr 12/29/21 10:30 12/29/21 12:33 12/29/21 12:40 Temperature 97.5 F L Pulse Rate 68 82 71 Respiratory Rate 16 16 16 Blood Pressure 180/90 H 166/92 H 175/106 H Pulse Oximetry 97 97 100 Oxygen Delivery Me thod Room Air Nasal Cannula Nasal Cannula Oxygen Flow Rate 3 3 12/29/21 12:45 12/29/21 15:14 12/29/21 15:44 Temperature 97.8 F 97.5 F L Pulse Rate 73 103 H 72 Respiratory Rate 16 16 16 Blood Pressure 181/94 H 158/88 H 153/77 H Pulse Oximetry 100 94 94 Oxygen Delivery Me thod Nasal Cannula Nasal Cannula Room Air Oxygen Flow Rate 3 3 12/29/21 15:20 12/29/21 15:25 12/29/21 15:30 Temperature 97.6 F Pulse Rate 98 91 78 Respiratory Rate 18 20 18 Blood Pressure 151/83 H 159/98 H 159/86 H Pulse Oximetry 95 94 96 Oxygen Delivery Me thod Nasal Cannula Nasal Cannula Nasal Cannula Oxygen Flow Rate 3 3 3 12/29/21 15:35 12/29/21 15:40 Temperature Pulse Rate 75 68 Respiratory Rate 16 14 Blood Pressure 159/79 H 155/76 H Pulse Oximetry 96 95 Oxygen Delivery Me thod Nasal Cannula Room Air Oxygen Flow Rate 2 Assessment and Plan Assessment and plan (1) Rotator cuff tear, right: Problem comment: Right shoulder complete supraspinatus rupture, full-thickness infraspinatus tendon tear with maximal retraction. Right shoulder supraspinatus and infraspinatus marked atrophy Right shoulder subscapularis full-thickness tear with marked atrophy Status: Acute Plan - Continue home medications for comorbidities as noted above. - Pain management and prophylaxis per Orthopedic Surgery team. - Patient did have elevated BPs in preop, but BP 140s/80s when I see him postoperatively. Follow-up with PCP and Cardiology for outpatient blood pressure management.
[2021-12-29] MEDS: CEFAZOLIN 2 GM in 0.9 % SODIUM CHLORIDE Mini-bag 100 ML IVPB (19:16)
--- NOTE | 2021-12-29 20:40 | PC.NURSE ---
end of shift. pt has been very pleasant. no pain left arm is numb. sao2 is on the left hand. arm is on a sling. he is alert x4. he is eating, drinking and voiding. IV is patent. teds and plexi are on. IS to 1000. he walked to the and to his new room. and family was here visting.
[2021-12-29] MEDS: SENNOSIDES 1 TAB TABLET 2 TAB PO (21:14)
[2021-12-29] MEDS: TAMSULOSIN HCL 0.4 MG CAPSULE PO (22:16)
[2021-12-29] MEDS: LACTATED RINGERS 1000 ML 1,000 ML 75 ML IV (22:41)
[2021-12-30] MEDS: CEFAZOLIN 2 GM in 0.9 % SODIUM CHLORIDE Mini-bag 100 ML IVPB (02:21)
[2021-12-30 05:00] VITALS: BP 173/95; PULSE 86; RESP 16; TEMP 36.4; O2SAT 95
--- NOTE | 2021-12-30 06:42 | PC.NURSE ---
Patient was alert and oriented x4. BP's elevated, discussed with MD who states patient would like to stay off of BP medications if possible. Per MD keep BP's under 180/110. BP's did not exceed 180/110. Patient c/o inability to urinate and was straight cathed x2 for 900 ml each time. Flomax given at HS. L shoulder remained numb throughout the shift and patient denied pain. CMS intact. Ice machine in place. Patient declines pain medication. Denies nausea, tolerating fluids overnight. IV fluids stopped at 0200 for adequate PO intake. Patient up with SBA to bathroom. He was pleasant and cooperative with cares.
[2021-12-30 07:00] VITALS: BP 158/80; PULSE 86; PULSE 92; RESP 21; TEMP 36.5; O2SAT 97
[2021-12-30 07:06] LABS: Hematocrit 42.3 % (37.0-53.0); Hemoglobin* 14.6 gm/dL (13.5-17.5); Mean Corpuscular HGB Conc 35 gm/dL (32-36); Mean Corpuscular Hemoglobin 31 pg (26-34); Mean Corpuscular Volume 89 fL (80-100); Platelet Count* 155 K/uL (140-440); Red Blood Count 4.73 m/uL (4.30-5.90); White Blood Count* 14.78 K/uL (4.50-11.00)
[2021-12-30 07:11] LABS: Slide Review Reflex No
[2021-12-30 07:20] LABS: Potassium* 4.2 mmol/L (3.6-5.1); Sodium* 134 mmol/L (135-149)
[2021-12-30 07:22] LABS: Creatinine* 1.2 mg/dL (0.5-1.5); Est. Creatinine Clearance* 42.83; Estimated Glomerular Filt Rate 60 ml/min
[2021-12-30 07:23] LABS: Blood Urea Nitrogen* 18 mg/dL (7-30)
[2021-12-30] MEDS: FINASTERIDE 5 MG TABLET PO (09:10)
[2021-12-30] MEDS: OMEPRAZOLE 20 MG CAPSULE DR 40 MG PO (09:10)
[2021-12-30] MEDS: SENNOSIDES 1 TAB TABLET 2 TAB PO (09:10)
--- NOTE | 2021-12-30 09:39 | PM.DS1 ---
DS: Providers Provider Time Seen by Provider: 07:30 Date Seen: 12/30/21 Primary care physician: Sandrine Roque CNP, SOLUTIONS SALES EXECUTIVE Consults: 12/29/21 15:54 Consult to Occupational Therapy [CONS] Routine Comment: Reason(s) for OT Consult:: Evaluate and Treat Any Restrictions?:: See Comment Comment: ROM elbow, forearm, wrist, digits PRN Shoulder pendulums okay No active shoulder ROM Consult to Physical Therapy [CONS] Routine Comment: Reason(s) for PT Consult:: Evaluate and Treat Any Restrictions?:: No Restrictions Consult to Physician [CONS] Routine Comment: Consulting Provider: Hospitalists Has provider been notified: No Consult to Lung Splitter [CONS] Routine Comment: Reason for Consult:: Discharge Planning Needs Attending Physician on discharge: Panchito Nur MD Date of Discharge: 12/30/21 DS: Diagnosis Discharge Diagnosis (1) Rotator cuff tear, right: Status: Acute Problem details: Right shoulder complete supraspinatus rupture, full-thickness infraspinatus tendon tear with maximal retraction. Right shoulder supraspinatus and infraspinatus marked atrophy Right shoulder subscapularis full-thickness tear with marked atrophy (2) Tendinopathy of right rotator cuff: Status: Acute (3) Tendonitis of long head of biceps brachii of right shoulder: Status: Acute (4) Tendinopathy of right biceps tendon: Status: Acute (5) Osteoarthritis of right shoulder: Status: Acute Problem details: Severe (6) Tear of right biceps muscle: Status: Acute Problem details: Right shoulder chronic intra-articular biceps disruption (7) Rotator cuff tear, left: Status: Acute (8) Stage 3 chronic kidney disease: Status: Chronic (9) Hypertension: Status: Chronic (10) Acute urinary retention: Status: Acute Problem details: Verde placed, f/u with urology in 1 week. DS: Summary Hospital Course Hospital Course: Henry is an 81-year-old male who underwent elective left shoulder arthroplasty on 12/29/2021. Postoperatively he has had acute urinary retention. Henry states that he has had this same issue to varying degrees with every surgery that he has had. Sometimes he will need a few straight caths and it will resolve and sometimes he has needed a Verde catheter for a week before resolves. He has had to straight cath overnight and after a command void this morning was still retaining just over 400 mL of urine. An indwelling Verde catheter is placed and he is asked to follow up with Urology as an outpatient. Pain in left shoulder is well controlled. He is discharged in stable condition. Time Spent with Patient Time attestation: Total time spent providing and/or coordinating discharge services: Time spent: Less than 30 minutes Exam Narrative: Exam Narrative: General: No acute distress. Awake, alert, oriented x3. No pallor. No jaundice. Oropharynx: Clear. Mucous membranes moist. Cardiovascular: Regular rate and rhythm. No murmurs, gallops, or rubs. Respiratory: Clear to auscultation bilaterally. No wheezes or crackles. Abdomen: Bowel sounds present. Soft, nondistended, nontender. Extremities: Left shoulder bandage is clean, dry, and intact. There is a small amount of ecchymosis inferiorly visible at the end of the bandage. Const: Vital Signs, click to edit/add: Vital Signs - 24 hr 12/29/21 10:30 12/29/21 12:33 12/29/21 12:40 Temperature 97.5 F L Pulse Rate 68 82 71 Pulse Rate [Left P ulse Oximeter] Respiratory Rate 16 16 16 Blood Pressure 180/90 H 166/92 H 175/106 H Blood Pressure [Ri ght Arm] Pulse Oximetry 97 97 100 Oxygen Delivery Me thod Room Air Nasal Cannula Nasal Cannula Oxygen Flow Rate 3 3 12/29/21 12:45 12/29/21 15:14 12/29/21 15:44 Temperature 97.8 F 97.5 F L Pulse Rate 73 103 H 72 Pulse Rate [Left P ulse Oximeter] Respiratory Rate 16 16 16 Blood Pressure 181/94 H 158/88 H 153/77 H Blood Pressure [Ri ght Arm] Pulse Oximetry 100 94 94 Oxygen Delivery Me thod Nasal Cannula Nasal Cannula Room Air Oxygen Flow Rate 3 3 12/29/21 15:20 12/29/21 15:25 12/29/21 15:30 Temperature 97.6 F Pulse Rate 98 91 78 Pulse Rate [Left P ulse Oximeter] Respiratory Rate 18 20 18 Blood Pressure 151/83 H 159/98 H 159/86 H Blood Pressure [Ri ght Arm] Pulse Oximetry 95 94 96 Oxygen Delivery Me thod Nasal Cannula Nasal Cannula Nasal Cannula Oxygen Flow Rate 3 3 3 12/29/21 15:35 12/29/21 15:40 12/29/21 16:30 Temperature Pulse Rate 75 68 Pulse Rate [Left P ulse Oximeter] 71 Respiratory Rate 16 14 14 Blood Pressure 159/79 H 155/76 H Blood Pressure [Ri ght Arm] 147/85 H Pulse Oximetry 96 95 95 Oxygen Delivery Me thod Nasal Cannula Room Air Room Air Oxygen Flow Rate 2 12/29/21 15:55 12/29/21 16:15 12/29/21 16:00 Temperature 96.5 F L 96.5 F L Pulse Rate 65 Pulse Rate [Left P ulse Oximeter] 63 65 Respiratory Rate 14 16 14 Blood Pressure Blood Pressure [Ri ght Arm] 144/77 H 129/68 144/73 H Pulse Oximetry 95 94 Oxygen Delivery Me thod Room Air Room Air Room Air Oxygen Flow Rate 2 12/29/21 17:08 12/29/21 17:30 12/29/21 18:36 Temperature Pulse Rate Pulse Rate [Left P ulse Oximeter] 69 68 69 Respiratory Rate 14 14 14 Blood Pressure Blood Pressure [Ri ght Arm] 166/89 H 144/56 H 167/88 H Pulse Oximetry 93 94 94 Oxygen Delivery Me thod Room Air Room Air Room Air Oxygen Flow Rate 12/29/21 20:00 12/29/21 19:00 12/29/21 20:00 Temperature 97.1 F L Pulse Rate Pulse Rate [Left P ulse Oximeter] 74 82 87 Respiratory Rate 14 18 16 Blood Pressure Blood Pressure [Ri ght Arm] 155/82 H 162/82 H 160/92 H Pulse Oximetry 94 95 93 Oxygen Delivery Me thod Room Air Room Air Room Air Oxygen Flow Rate 12/30/21 05:00 12/29/21 21:00 12/29/21 22:00 Temperature 97.5 F L Pulse Rate Pulse Rate [Left P ulse Oximeter] 86 98 95 Respiratory Rate 16 16 16 Blood Pressure Blood Pressure [Ri ght Arm] 173/95 H 178/104 H 172/92 H Pulse Oximetry 95 95 92 Oxygen Delivery Me thod Room Air Room Air Room Air Oxygen Flow Rate 12/30/21 07:00 12/30/21 07:00 Temperature 97.7 F Pulse Rate Pulse Rate [Left P ulse Oximeter] 86 92 Respiratory Rate 21 21 Blood Pressure Blood Pressure [Ri ght Arm] 158/80 H Pulse Oximetry 97 Oxygen Delivery Me thod Room Air Oxygen Flow Rate DS: Data Data Completed and Pending Completed studies during hospitalization: Ordering Physician: Panchito Nur M.D. Date of Service: 12/29/21 Procedure(s): XR shoulder LT min 2V Accession Number(s): [id number] cc: Panchito Nur M.D.; Sandrine Roque CNP, SOLUT[employer] SALES EXECUTIVE~ For Patients: As a result of the Cures Act, medical imaging exams and procedure reports are released immediately into your electronic medical record. You may view this report before your referring provider. If you have questions, please contact your health care provider. Indication: Postop Technique: Two views left shoulder Comparison: No comparison Findings: Left humeral arthroplasty appears satisfactory position. No hardware complication seen. Postoperative soft tissue gas and swelling. Dictated by Connie Pina MD @ 12/30/2021 8:24:54 AM (Electronically Signed) Labs on day of discharge: Labs from last 24 hours 12/30/21 12/30/21 06:13 06:13 WBC 14.78 H RBC 4.73 Hgb 14.6 Hct 42.3 MCV 89 MCH 31 MCHC 35 Plt Count 155 Sodium 134 L Potassium 4.2 BUN 18 Creatinine 1.2 Estimated Creat Clear 42.83 Estimated GFR 60 Discharge Plan Discharge Disposition: Home, Self-Care Discharging Surgeon: Panchito Nur Follow-Up Appointment: 1 week f/u for postop visit with ROSA Prescriptions: New acetaminophen 500 mg capsule 500 - 1,000 mg PO Q6H MDD 4000mg PRNQty: 100 0RF sennosides-docusate sodium [Senna-S] 8.6-50 mg tablet 1 - 4 tab-cap PO BID PRN (Reason: constipation) Qty: 60 0RF Rx Instructions: Hold medication if experiencing loose stools. oxycodone 5 mg tablet 2.5 - 5 mg PO Q4-6H MDD 6 PRN (Reason: pain) Qty: 30 0RF Rx Instructions: Take as needed for postop pain: 2.5mg mild pain, 5mg moderate-severe pain; wean as tolerated. Continued atorvastatin 10 mg tablet 10 mg PO HS tamsulosin 0.4 mg capsule 0.4 mg PO DAILY finasteride 5 mg tablet 5 mg PO DAILY fexofenadine [Pam Allergy] 60 mg tablet 60 mg PO Q12H gabapentin 100 mg capsule 200 mg PO HS Label Comments: TAKE ONE CAPSULE BY MOUTH AT NIGHT FOR WEEK. THEN INCREASE TO 2 CAPSULES AT NIGHT pantoprazole 40 mg tablet,delayed release (DR/EC) 40 mg PO BID Label Comments: TAKE 1 TABLET BY MOUTH TWICE DAILY BEFORE MEALS Activity Level: Activity as Tolerated Activity Detail: Wear sling at all times unless performing elbow range of motion No weight bearing with the left upper extremity beyond coffee cup in weight Discharge Diet: Regular Additional Instructions: Indwelling verde catheter to gravity. Follow up with urology in 1 week. Wound: ?Do not remove original dressing; we will remove this at first postop visit in 1 week. Only remove dressing if integrity is in question. ?No immersing wound in water; showering okay; light scrub with your hand and body soap, rinse, dab dry ?Sutures are under the skin, will dissolve; allow surgical glue to come off naturally; do not scrub the wound or apply ointments/lotions ?Call our office with any redness that streaks, excessive drainage from the wound, or wound gapping. Ice/Elevate: ?Ice as needed for swelling and discomfort (cryocuff or ice pack); elevate frequently above the heart MARCELINO socks: ?Wear for 1 month, remove for 1 hour 3 times per day ?These are frustrating to take on/off, but are important for blood clot prevention for 1 month after surgery Driving: ?Do not drive while taking narcotic pain medication Dental: ?No elective dental work for 6 months post-op. If there is an urgent/emergent dental need, contact our office for an antibiotic prescription. Smoking/Alcohol: ?Do not smoke; do no drink alcohol especially when taking postoperative oral narcotic medication Seek Care from you Primary Care Provider if you experience the following issues in the postoperative phase and beyond: ?Bacterial infections such as: pneumonia, bacterial skin infection (cellulitis), UTI, high fever, chills unrelated to the operative body part - call your primary care physician urgently for treatment in hopes to protect your health and the metal implant. Referrals: Follow up: ?Ortho surgeon follow-up in 6 weeks; repeat radiographs three views left shoulder ?PA-C visit in 1 week *If there are any acute concerns regarding your surgery, please call our orthopedic clinic ([phone]) Forms: Work/Release Restrictions Follow-up: [facility] [Other] - 01/10/22 11:00 am Sandrine Roque CNP, [employer] SALES EXECUTIVE [Primary Care Provider] - (Schedule appointment as needed) Candido Westbrook PA-C [Physician [place]iler] - 01/06/22 9:30 am ([facility]) Discharge Orders: Discharge Order (Routine); Ordered 12/30/21 Ordered By: Candido Westbrook
--- NOTE | 2021-12-30 11:07 | PM.ORPN ---
Subjective Subjective Time Seen by Provider: 11:00 Date Seen: 12/30/21 Principal diagnosis: Left for reverse shoulder replacement 12/29/2021 Interval history: Patient is comfortable this morning. He is discharging to home today. Ortho Exam Narrative Exam Narrative: Left upper extremity, no sensation, no motor, block is working well. Dressing is clean, dry, and intact. Mild soft tissue edema about the left shoulder. Const Vital Signs, click to edit/add: Vital Signs - 24 hr 12/29/21 12:33 12/29/21 12:40 12/29/21 12:45 Temperature Pulse Rate 82 71 73 Pulse Rate [Left Pulse Oximeter] Respiratory Rate 16 16 16 Blood Pressure 166/92 H 175/106 H 181/94 H Blood Pressure [Right Arm] Pulse Oximetry 97 100 100 Oxygen Delivery Method Nasal Cannula Nasal Cannula Nasal Cannula Oxygen Flow Rate 3 3 3 12/29/21 15:14 12/29/21 15:44 12/29/21 15:20 Temperature 97.8 F 97.5 F L Pulse Rate 103 H 72 98 Pulse Rate [Left Pulse Oximeter] Respiratory Rate 16 16 18 Blood Pressure 158/88 H 153/77 H 151/83 H Blood Pressure [Right Arm] Pulse Oximetry 94 94 95 Oxygen Delivery Method Nasal Cannula Room Air Nasal Cannula Oxygen Flow Rate 3 3 12/29/21 15:25 12/29/21 15:30 12/29/21 15:35 Temperature 97.6 F Pulse Rate 91 78 75 Pulse Rate [Left Pulse Oximeter] Respiratory Rate 20 18 16 Blood Pressure 159/98 H 159/86 H 159/79 H Blood Pressure [Right Arm] Pulse Oximetry 94 96 96 Oxygen Delivery Method Nasal Cannula Nasal Cannula Nasal Cannula Oxygen Flow Rate 3 3 2 12/29/21 15:40 12/29/21 16:30 12/29/21 15:55 Temperature 96.5 F L Pulse Rate 68 65 Pulse Rate [Left Pulse Oximeter] 71 Respiratory Rate 14 14 14 Blood Pressure 155/76 H Blood Pressure [Right Arm] 147/85 H 144/77 H Pulse Oximetry 95 95 Oxygen Delivery Method Room Air Room Air Room Air Oxygen Flow Rate 12/29/21 16:15 12/29/21 16:00 12/29/21 17:08 Temperature 96.5 F L Pulse Rate Pulse Rate [Left Pulse Oximeter] 63 65 69 Respiratory Rate 16 14 14 Blood Pressure Blood Pressure [Right Arm] 129/68 144/73 H 166/89 H Pulse Oximetry 95 94 93 Oxygen Delivery Method Room Air Room Air Room Air Oxygen Flow Rate 2 12/29/21 17:30 12/29/21 18:36 12/29/21 20:00 Temperature Pulse Rate Pulse Rate [Left Pulse Oximeter] 68 69 74 Respiratory Rate 14 14 14 Blood Pressure Blood Pressure [Right Arm] 144/56 H 167/88 H 155/82 H Pulse Oximetry 94 94 94 Oxygen Delivery Method Room Air Room Air Room Air Oxygen Flow Rate 12/29/21 19:00 12/29/21 20:00 12/30/21 05:00 Temperature 97.1 F L 97.5 F L Pulse Rate Pulse Rate [Left Pulse Oximeter] 82 87 86 Respiratory Rate 18 16 16 Blood Pressure Blood Pressure [Right Arm] 162/82 H 160/92 H 173/95 H Pulse Oximetry 95 93 95 Oxygen Delivery Method Room Air Room Air Room Air Oxygen Flow Rate 12/29/21 21:00 12/29/21 22:00 12/30/21 07:00 Temperature Pulse Rate Pulse Rate [Left Pulse Oximeter] 98 95 86 Respiratory Rate 16 16 21 Blood Pressure Blood Pressure [Right Arm] 178/104 H 172/92 H Pulse Oximetry 95 92 Oxygen Delivery Method Room Air Room Air Oxygen Flow Rate 12/30/21 07:00 Temperature 97.7 F Pulse Rate Pulse Rate [Left Pulse Oximeter] 92 Respiratory Rate 21 Blood Pressure Blood Pressure [Right Arm] 158/80 H Pulse Oximetry 97 Oxygen Delivery Method Room Air Oxygen Flow Rate Documenting provider has reviewed patient's vital signs: yes Assessment and Plan Assessment and plan (1) Rotator cuff tear, right: Problem details: Right shoulder complete supraspinatus rupture, full-thickness infraspinatus tendon tear with maximal retraction. Right shoulder supraspinatus and infraspinatus marked atrophy Right shoulder subscapularis full-thickness tear with marked atrophy Status: Acute Assessment and Plan: Discharging to home today. Sling time study engineer, left. He will range his elbow, wrist, fingers on the left several times a day. He will return to the clinic in 1 week for a postop visit. Discharge medications are sent to his pharmacy. (2) Tendinopathy of right rotator cuff: Status: Acute (3) Tendonitis of long head of biceps brachii of right shoulder: Status: Acute (4) Tendinopathy of right biceps tendon: Status: Acute (5) Osteoarthritis of right shoulder: Problem details: Severe Status: Acute (6) Tear of right biceps muscle: Problem details: Right shoulder chronic intra-articular biceps disruption Status: Acute (7) Rotator cuff tear, left: Status: Acute (8) Stage 3 chronic kidney disease: Status: Chronic (9) Hypertension: Status: Chronic (10) Acute urinary retention: Problem details: Arteaga placed, f/u with urology in 1 week. Status: Acute
--- NOTE | 2021-12-30 13:59 | PC.NURSE ---
shift [id number] Pt this shift calm and cooperative. tolerating regular diet, ambulating in room independently and VS stable. Left arm CMS check within normal limits. Pt has no sensation d/t block, no pain medications given. Attempt to void in AM, bladder scan showed about 450ml. Void and BM after breakfast, technical publications writer observed some urine color in toilet. Arteaga cath ordered by . Pt states that bladder fullness decreased since second attempt to void. Second bladder scan showed about 200ml. Pt report blood in urine at third void, technical publications writer did not observe. MD notified, pt educated on possible trauma r/t straight cath NOC x2 for urine retention. Alerted to SS of complications such as clotting, large amount of blood in urine, or new inability to void. Discharge instructions provided verbally and handouts. IV dc'd without complications. Used wheelchair out to vehicle accompanied by significant other. All questions and concerns answered.
== END 2021-12-30 11:30 | disposition home or self-care (01) ==
LOC: OR 09:34 → MEDSURG 09:43
PROVIDERS: PCP Nurse Practitioner Family; Visit Provider Orthopaedic Surgery Sports Medicine
PROC: 0RRJ0JZ Replacement of Right Shoulder Joint with Synthetic Substitute, Open Approach (ICD-10-PCS; CPT 23472; principal; 2021-12-29 11:45)
DX: M75.122 Complete rotator cuff tear or rupture of left shoulder, not specified as traumatic (principal); M75.21 Bicipital tendinitis, right shoulder; M19.011 Primary osteoarthritis, right shoulder; R33.8 Other retention of urine; K21.9 Gastro-esophageal reflux disease without esophagitis; I12.9 Hypertensive chronic kidney disease with stage 1 through stage 4 chronic kidney disease, or unspecified chronic kidney disease; N18.30 Chronic kidney disease, stage 3 unspecified; Z96.641 Presence of right artificial hip joint; Z85.528 Personal history of other malignant neoplasm of kidney; Z90.5 Acquired absence of kidney; N40.0 Benign prostatic hyperplasia without lower urinary tract symptoms; E78.5 Hyperlipidemia, unspecified
CPT/HCPCS: 23472; 01638; 36415; 51702; 51798; 64415; 73030; 76942; 82565; 84132; 84295; 84520; 85027; 97110; 97116; 97161; 97165; 97535; 99100; A9270; C1713; C1776; J0330; J0690; J1100; J2250; J2405; J2704; J2710; J2795; J3010; J7120; L3670

== ENCOUNTER 2022-03-23 11:30 | Outpatient (RCR) | payer MEDICARE, OTHER, SELFPAY ==
--- NOTE | 2021-12-22 16:35 | OT.POTN ---
OT/PT Pre-Op Therapy Note OT/PT Pre-Op Therapy Note Start: 12/22/21 16:22 Freq: Status: Active Protocol: Document 12/22/21 16:22 LCN (Rec: 12/22/21 16:34 LCN Desktop) E-signed By Emeli Barboza, OTR/L, CLT Pre-Op Therapy Note Pre-Op Therapy Note Joint L Total Shoulder Arthroplasty, Reverse. Planning to get R side done in the next few weeks of recovery. Has had 3 total hip procedures , 1 as a revision. 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 Overall Bilateral Upper Extremity ROM/ Lifts L shoulder to 75 ABD Strength with 7/10 pain against gravity . Able to reach to 95 degrees in [place], can wash hands with B hands/ Social History Type of Dwelling Rambler Home Number of Stairs to Enter (Stairs) 1 Physical Barriers to Enter Home Railing Ascend Left Lives With: Spouse Living With Comments very mobile, able to assit for cooking, cleaning, bathing. Caregiver Information Caregiver willing and able, multimedia coordinator assistance available Bedroom Location 1st floor Bathroom Setup Walk In Shower,Grab Bar Toilet ,Toilet Height High Rise, Raised Toilet Seat,Hand Held Shower Head Physical Barriers in Home Environment Level, No Step Mobility and ADL Aids Admin Dir,Dressing Stick,Sock Aid,Long Shoe Horn Recommended Equipment Has new lift recliner. Moving his sleep position to sleeping to R side of bed for post op, has Adjustable Select Comfort base. Has a bidet installed. Needs grab bar installed at out side of shower (has bar already), has good railing inside with molded seat/ regular height. Pre-Op Therapy Note (Continued) Do You Drive Yes Recovery With Outpatient Outpatient PT Scheduled Yes Date/Time & Location of Outpatient PT 01/10/22 11 am [facility] Preop Exercises Given Yes Fall Prevention Education Given Yes Adaptive Equipment Resources Given Yes Post-Op Therapy Progression Reviewed Yes Readiness for Learning Excellent Teaching Comments Pt with excellent questions on sleep positioning, limited hand use with ADL. Good lighting/night lights, only heavy door mats, safe pathways between rooms. I certify medical necessity of this eval/treatment education session with OT. SIGNATURE DATE: ____/____/____ PHI#
--- NOTE | 2022-01-10 12:19 | PT.OPE ---
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 Swelling Mild, generalized swelling. Bruising into anterior shoulder, upper arm and medial chest Palpation Increased tenderness and spasm in the L upper trapezius muscle, posterior cuff and intra scapular muscles. Assessment Assessment/Impression Henry is a very pleasant 81 year old gentleman referred to PT following a Reverse Shoulder Arthroplasty on . Although the OA is worse in the R shoulder, a recent fall onto the L exacerbated underlying degeneration making the arm nearly unusable. He resides with his in their home. She is available and currently assisting bathing/ showering, transfers from his recliner and dressing. Pain is very manageable, taking only a half a pain medication before going to sleep. Sleeping in a recliner and averages about 3 hours of uninterrupted sleep at a time. Pain is rated a 3/10. Henry appears to doing quite well nearing the second week of his recovery from L shoulder TSA. Bruising present but lessening and passive range amounts are very good at this time. Typical muscle tightness and soreness exist in surrounding the L shoulder, contributed mostly to from sling use and inability to relax the involved shoulder. Skilled Physical Therapy recommended to advance ROM limits, control muscle related pain/spasms and eventually progress into scapular and shoulder strength work. He appears capable and willing to participate in the rehab process. Primary Functional Limitations Showering Dressing-donning and doffing shirt Transfers from low surfaces- toilet Donning compression socks Plan of Care Rehabilitation Potential Good Physical Therapy Goals 1. Advance PROM within protocol limits. Flexion to 120, ABD 100, ER 45 in 6 weeks . 2.Improve active L shoulder control and allowing independent donning/doffing of shirt x 10 weeks 3.L shoulder strength to 4-/5 strength to permit return to driving-able to open/shut car door and direct steering wheel using involved arm x 12 weeks . 4.Return to sleeping in his bed with independent ability for sit to/from supine transitions x 8 weeks Coordination/Communication With Referral Source Frequency/Duration 1-2x per week 12-16 weeks Patient Will Be Discharged From Therapy Independent w/HEP, Independently Progressing Evaluation Billing Untimed Code Treatment Minutes 30 PT Eval No Charge No Complexity Low Certification Information Initial Certification Date 01/10/22 Ending Certification Date 04/12/22 Provider Signature Shows Agreement With POC & Medical Necessity Physician Signature & Date Requested Please Sign/Date Here Physician Comment/Change : Physician NPI Number #
== END 2022-03-23 12:24 | disposition home or self-care (01) ==
PROVIDERS: PCP Nurse Practitioner Family; Visit Provider Orthopaedic Surgery Sports Medicine
DX: M19.012 Primary osteoarthritis, left shoulder (principal); Z51.89 Encounter for other specified aftercare
CPT/HCPCS: 97110; 97140; 97161

== ENCOUNTER 2022-05-06 11:53 | Emergency (ER) | payer MEDICARE, OTHER, SELFPAY ==
[2022-05-06] VITALS (27 sets, daily range): BP systolic 145–191; BP diastolic 77–140; PULSE 69–88; RESP 18; TEMP 36.1; O2SAT 97–100; BMI 30.1
--- NOTE | 2022-05-06 12:22 | ED_ITS ---
HPI - Dizziness General Time Seen by Provider: 12:22 Date Seen: 05/06/22 Chief Complaint: Dizziness/Vertigo Stated Complaint: Dizzy Time Seen by Provider: 05/06/22 12:12 Source: patient, RN notes reviewed and old records reviewed Mode of arrival: ambulatory Limitations: no limitations History of Present Illness HPI Narrative: Henry is a very pleasant 82-year-old gentleman with a history of stage 3 chronic kidney disease, hypertension, chronic dizziness who comes to the emergency room with markedly worsening dizziness and lip numbness. Patient notes that for jayesh alonso he has had dizzy spells and has undergone stress test both treadmill and chemical that have not shown any heart problems. He states that in the beginning these would only last for 3-4 minutes some to be occasional throughout the month. He has recently beginning dizzy spells almost every day but usually in the afternoon after he has finished eating. He notes that this morning it is markedly different. He was up at 0300 hours and was normal but when he awoke at 0700 hours he has dizziness with any movement. He notes that when he gets up to try to walk he has to hang onto the wall or sit down. He is chronically short of breath but his shortness of breath gets somewhat worse. He denies a history of stroke or Parkinson's disease. He notes that when he does get dizzy he also experiences left lower lip numbness. He notes that all of his limbs are weak with this. He has not had any recent falls or trauma. He did experience a concussion 4-5 years ago. Again states that 0300 hours he felt normal and at 0700 hours awoke with the dizziness which is unusual for him. He is mildly nauseated without any vomiting. He has not lost control of his bowel or bladder. He denies any fever or chills, cough or congestion. Patient denies vertigo type symptoms when I do described them to him. He feels like he is more lost its base and lightheaded. Related Data Home Medications Medication Instructions Recorded Confirmed atorvastatin 10 mg tablet 10 mg PO HS 10/12/21 02/10/22 fexofenadine 60 mg tablet (Pam 60 mg PO Q12H 10/12/21 02/10/22 Allergy) finasteride 5 mg tablet 5 mg PO DAILY 10/12/21 02/10/22 tamsulosin 0.4 mg capsule 0.4 mg PO DAILY 10/12/21 02/10/22 gabapentin 100 mg capsule 200 mg PO HS 12/29/21 02/10/22 pantoprazole 40 mg tablet,delayed 40 mg PO BID 12/29/21 02/10/22 release Previous Rx's Medication Instructions Recorded acetaminophen 500 mg capsule 500 - 1,000 mg PO Q6H PRN #100 caps 12/30/21 Allergies Allergy/AdvReac Type Severity Reaction Status Date / Time hydrocodone [From Vicodin] Allergy Verified 02/10/22 13:01 Review of Systems Status of ROS: Reports: 10 or more systems reviewed and unremarkable except as noted in History and below Const: Reports: fatigue; Denies: fever or chills Eyes: Denies: change in vision or blurry vision ENMT: Denies: throat pain, neck pain, throat swelling, difficulty swallowing or vertigo Cardio: Reports: lightheadedness and shortness of breath with exertion (Wors ens with lightheadedness); Denies: chest pain, palpitations or swelling of feet/ankles Resp: Reports: shortness of breath (Worsens with lightheadedness); Denies: cough or wheezing GI: Reports: nausea; Denies: abdominal pain, vomiting, diarrhea or difficulty swallowing : Reports: urinary frequency; Denies: painful urination Musculo: Denies: neck pain Integ/Breast: Denies: rash Neuro: Reports: weakness in extremities (Globally) and dizziness; Denies: headache, numbness in extremities, vertigo, confusion, slurred speech, difficulty communicating thoughts or seizure-like activity Endo: Reports: fatigue Allergy/Immuno: Denies: throat swelling or wheezing PFSH PFSH Medical History Acid reflux Anterior epistaxis Arthritis Elevated cholesterol History of revision of total replacement of right hip joint Hypertension Hypertrophy of prostate without urinary obstruction Stage 3 chronic kidney disease Ventral hernia Surgical History History of appendectomy History of bowel resection History of incisional hernia repair History of left hip replacement History of right hip replacement History of right nephrectomy Hx laparoscopic cholecystectomy Family History Father CHF (congestive heart failure) Mother COPD (chronic obstructive pulmonary disease) Sister Congenital hip deformity Social History Smoking Status: Former smoker Do you use any of these nicotine containing products: None Second hand tobacco smoke exposure: No How often do you have a drink containing alcohol: monthly or less Alcohol type: beer How many standard drinks containing alcohol do you have on a typical day: 1 or 2 How often do you have six or more drinks on one occasion: Never AUDIT-C Alcohol total score: 1 Non-prescribed substance use: denies use Caffeine: No Exam Narrative: Exam Narrative: Henry is alert and oriented. His EOM is full. Pupils are equal round and reactive. Visual tapia intact. Eyebrow symmetrical. He has a very extremely subtle decreased smile on the left. Heart with regular rate and rhythm with occasional additional systole and lungs are clear to auscultation. Abdomen soft nontender. Lower extremities without edema. Upper extremity strength and motor is intact. Lower extremity strength and motor is intact. Romberg is negative. Finger to nose intact. He is moving his head back and forth on the cot talking to his without any symptoms. Const: Vital Signs, click to edit/add: Vital Signs - 24 hr 05/06/22 11:59 05/06/22 14:36 05/06/22 14:37 Temperature 97.0 F L Pulse Rate 70 71 Pulse Rate [Right Pulse Oximeter] 72 Respiratory Rate 18 Blood Pressure 165/95 H Blood Pressure [Ri ght Upper Arm] 191/79 H Pulse Oximetry 99 97 97 Oxygen Delivery Me thod Room Air Room Air 05/06/22 14:45 05/06/22 15:00 05/06/22 15:02 Temperature Pulse Rate 69 75 72 Pulse Rate [Right Pulse Oximeter] Respiratory Rate Blood Pressure 156/83 H Blood Pressure [Ri ght Upper Arm] Pulse Oximetry 97 99 97 Oxygen Delivery Me thod Room Air 05/06/22 15:15 05/06/22 15:30 05/06/22 15:32 Temperature Pulse Rate 73 88 82 Pulse Rate [Right Pulse Oximeter] Respiratory Rate Blood Pressure 171/99 H Blood Pressure [Ri ght Upper Arm] Pulse Oximetry 98 97 97 Oxygen Delivery Me thod 05/06/22 15:45 05/06/22 16:00 05/06/22 16:02 Temperature Pulse Rate 71 73 73 Pulse Rate [Right Pulse Oximeter] Respiratory Rate Blood Pressure 146/77 H Blood Pressure [Ri ght Upper Arm] Pulse Oximetry 98 97 97 Oxygen Delivery Me thod 05/06/22 16:15 05/06/22 16:30 05/06/22 16:31 Temperature Pulse Rate 77 75 75 Pulse Rate [Right Pulse Oximeter] Respiratory Rate Blood Pressure 145/81 H Blood Pressure [Ri ght Upper Arm] Pulse Oximetry 97 98 98 Oxygen Delivery Me thod 05/06/22 12:39 05/06/22 16:32 05/06/22 18:44 Temperature Pulse Rate 80 73 Pulse Rate [Right Pulse Oximeter] Respiratory Rate Blood Pressure Blood Pressure [Ri ght Upper Arm] Pulse Oximetry 99 98 98 Oxygen Delivery Me thod 05/06/22 18:45 05/06/22 18:46 Temperature Pulse Rate 73 76 Pulse Rate [Right Pulse Oximeter] Respiratory Rate Blood Pressure 153/140 H Blood Pressure [Ri ght Upper Arm] Pulse Oximetry 99 97 Oxygen Delivery Me thod Documenting provider has reviewed patient's vital signs: yes Course Course Hospital Course: At this time differential diagnosis does include cardiac causes such is arrhythmia, acute coronary event,. Must also include inner ear dysfunction as well as stroke. One was also think about vascular disease of the brain as this seems to be especially prominent when he is standing. Will obtain CT at this time. Will hold off on CTA as patient does not exhibit large vessel symptoms. Will speak with Neurology regarding MRI. Will also collect CBC, comprehensive, troponin, proBNP, CRP as well as COVID swabs. Reevaluation(s) Reevaluation #1: Discussed MRI results and Neurology consultation with the patient. Patient had just been up to the bathroom and appears to be asymptomatic at this time. Patient describes inability to tolerate antihypertensives in the past because the made him dizzy. States that once he quit those medications he was able to walk a mi without difficulty. However at the end of this past summer he notes that he had to stop a few times and lean against tree before completing that mild because of dizziness. Consultations Consultation #1: Consult initially with Dr. Perez, [facility]. Dr. Perez agrees with MRI MRA a with and without contrast in this gentleman. Given history of kidney disease will give him 500 mils saline as we will be using contrast. Consultation #2: is the neurologist on-call when MRI results are returned. Patient does not have any indication of acute stroke. 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 Patient is noted to only really have symptoms when he is standing up. Does not appear to have any vertigo or dizziness as he is lying down turning his head from side to side. It is my believes that this is likely a vessel insufficiency issue. Neurologist agrees this may be the case. Does suggest use of aspirin 81 mg daily. Will also have Henry follow-up with Neurology. Vital Signs Vital signs: Initial Vital Signs Temperature 97.0 F L 05/06/22 11:59 Temperature Source Temporal Artery Scan 05/06/22 11:59 Pulse Rate 72 05/06/22 11:59 Respiratory Rate 18 05/06/22 11:59 Blood Pressure 191/79 H 05/06/22 11:59 Blood Pressure Mean 116 05/06/22 11:59 Blood Pressure Position Sitting 05/06/22 11:59 Pulse Oximetry 99 05/06/22 11:59 Oxygen Delivery Method 05/06/22 11:59 Vital Signs Temperature 97.0 F L 05/06/22 11:59 Pulse Rate 72 05/06/22 11:59 Respiratory Rate 18 05/06/22 11:59 Blood Pressure 191/79 H 05/06/22 11:59 Pulse Oximetry 99 05/06/22 11:59 Oxygen Delivery Method 05/06/22 11:59 Temperature 97.0 F L 05/06/22 11:59 Pulse Rate 76 05/06/22 18:46 Respiratory Rate 18 05/06/22 11:59 Blood Pressure 153/140 H 05/06/22 18:46 Pulse Oximetry 97 05/06/22 18:46 Oxygen Delivery Method 05/06/22 15:00 MDM - Dizziness MDM Narrative Medical decision making narrative: 1. Dizziness-I believe this is likely or vascular insufficiency issue. 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 Fortunately there is nothing to be done at this time is he has no evidence of a stroke. I had the pleasure of speaking with [facility]. They do suggest a bed 81 mg baby aspirin daily. Patient notes that he had been on in the past and was not taken off it for any particular reason except there was a general consensus at that time that it was not necessary. I do suggest this now. I also suggest avoiding antih ypertensive. Patient did have elevated blood pressure here in the emergency room. He describes dizziness worsening with blood pressure medications in the past. Obviously this is a can under as elevated blood pressure does place to a greater risk for sequela eye. I think that it would be best that he follow-up with Neurology to ensure that there was no other underlying reason for this occurrence. I do not think we are dealing with middle ear or otolith malfunction as he is able to lie flat and move his neck back and forth without any symptoms. I would recommend good hydration. For worsening symptoms I would have him return to the emergency room. 2. Disposition-patient is discharged home in the care of his . Return as needed for worsening symptoms Note that electrolytes CRP COVID tests and troponins all reassuring today. Medical Records Attestation: I reviewed the patient's medical records. Lab Data Attestation: I reviewed the patient's lab results. Labs: Lab Results 05/06/22 05/06/22 05/06/22 Range/Units 12:39 13:05 13:15 WBC 6.19 (4.50-11.00) K/uL RBC 4.72 (4.30-5.90) m/uL Hgb 14.2 (13.5-17.5) gm/dL Hct 42.8 (37.0-53.0) % MCV 91 (80-100) fL MCH 30 (26-34) pg MCHC 33 (32-36) gm/dL RDW Coeff of [place] 12.5 (11.5-15.5) % Plt Count 164 (140-440) K/uL Neut % (Auto) 69.7 (42.0-72.0) % Lymph % (Auto) 21.3 (20-44) % [place] % (Auto) 6.9 (0.0-11.0) % Eos % (Auto) 1.0 (0.0-7.0) % Baso % (Auto) 1.1 (0.0-3.0) % Neut # (Auto) 4.31 (1.7-7.0) K/uL Lymph # (Auto) 1.32 (0.90-2.90) K/uL [place] # (Auto) 0.40 (0.00-0.90) K/UL Eos # (Auto) 0.06 (0.00-0.50) K/uL Baso # (Auto) 0.07 (0.00-0.30) K/uL Sodium 131 L (135-149) mmol/L Potassium 4.2 (3.6-5.1) mmol/L Chloride 105 (96-114) mmol/L Carbon Dioxide 19 L (20-32) mmol/L BUN 14 (7-30) mg/dL Creatinine 1.2 (0.5-1.5) mg/dL Estimated Creat Clear 37.54 Estimated GFR 60 ml/min Glucose 85 (60-115) mg/dL Calcium 9.5 (8.4-10.6) mg/dL Total Bilirubin 1.1 (0.1-1.5) mg/dL AST 47 H (12-35) U/L ALT 21 (4-50) U/L Alkaline Phosphatase 88 (40-150) U/L C-Reactive Protein < 0.5 L (0.5-1.0) mg/dL NT-Pro-B Natriuret Pep 174 pg/mL Total Protein 8.1 (6.0-8.3) g/dL Albumin 4.3 (3.3-5.0) g/dL SARS-CoV-2 (PCR) Negative SARS-CoV-2 (Negative) Influenza Type A (PCR) Negative PCR FLU A (Negative) Influenza Type B (PCR) Negative PCR FLU B (Negative) RSV (PCR) Negative PCR RSV (Negative) POC Troponin I (0.01-0.04) ng/ml 05/06/22 Range/Units 14:15 WBC (4.50-11.00) K/uL RBC (4.30-5.90) m/uL Hgb (13.5-17.5) gm/dL Hct (37.0-53.0) % MCV (80-100) fL MCH (26-34) pg MCHC (32-36) gm/dL RDW Coeff of [place] (11.5-15.5) % Plt Count (140-440) K/uL Neut % (Auto) (42.0-72.0) % Lymph % (Auto) (20-44) % [place] % (Auto) (0.0-11.0) % Eos % (Auto) (0.0-7.0) % Baso % (Auto) (0.0-3.0) % Neut # (Auto) (1.7-7.0) K/uL Lymph # (Auto) (0.90-2.90) K/uL [place] # (Auto) (0.00-0.90) K/UL Eos # (Auto) (0.00-0.50) K/uL Baso # (Auto) (0.00-0.30) K/uL Sodium (135-149) mmol/L Potassium (3.6-5.1) mmol/L Chloride (96-114) mmol/L Carbon Dioxide (20-32) mmol/L BUN (7-30) mg/dL Creatinine (0.5-1.5) mg/dL Estimated Creat Clear Estimated GFR ml/min Glucose (60-115) mg/dL Calcium (8.4-10.6) mg/dL Total Bilirubin (0.1-1.5) mg/dL AST (12-35) U/L ALT (4-50) U/L Alkaline Phosphatase (40-150) U/L C-Reactive Protein (0.5-1.0) mg/dL NT-Pro-B Natriuret Pep pg/mL Total Protein (6.0-8.3) g/dL Albumin (3.3-5.0) g/dL SARS-CoV-2 (PCR) (Negative) Influenza Type A (PCR) (Negative) Influenza Type B (PCR) (Negative) RSV (PCR) (Negative) POC Troponin I 0.01 (0.01-0.04) ng/ml Imaging Data CT scan - head: Attestation: I have reviewed the pertinent imaging results. My impression: I did not note any acute findings. Radiologist's impression: here is no intra-axial or extra-axial fluid collection. There is no mass effect or midline shift. There is age-related cortical atrophy with mild sulcal widening and ex vacuo dilatation of the lateral ventricles. There are chronic small vessel disease changes in the subcortical and periventricular white matter without lost torres-white differentiation. The orbits and their contents are grossly within normal limits. The bony calvarium is grossly intact. The paranasal sinuses are clear. The mastoid air cells are well aerated. Impression: 1. Age-related changes of the brain without acute intracranial abnormality. Chest x-ray: Attestation: I have reviewed the pertinent imaging results. ECG Data Attestation: I personally reviewed and interpreted this ECG as follows: Discharge Plan Discharge Clinical Impression: Dizziness, Neurological symptoms Patient Disposition: Home w/ Parent or Adult Condition: Improved Additional Instructions: Suggest follow-up with a neurologist. I think he can probably call your primary physician to see if you can have this arranged. I have a hard copy and a disc from Radiology so that you can take these studies. Start baby aspirin 81 mg daily. There was no evidence of heart involvement with the dizziness today. Before arising from a sitting or lying down position will go your to legs and take some deep breaths before standing up. At this time I would not recommend use of blood pressure medications. I think that you may be dependent on the higher blood pressure for blood flow to the brain. Of course, we should ask in neurologist to would be an expert in this area. Return to the emergency room for worsening symptoms. Prescriptions: No Action atorvastatin 10 mg tablet 10 mg PO HS tamsulosin 0.4 mg capsule 0.4 mg PO DAILY finasteride 5 mg tablet 5 mg PO DAILY fexofenadine [Pam Allergy] 60 mg tablet 60 mg PO Q12H gabapentin 100 mg capsule 200 mg PO HS Label Comments: TAKE ONE CAPSULE BY MOUTH AT NIGHT FOR WEEK. THEN INCREASE TO 2 CAPSULES AT NIGHT pantoprazole 40 mg tablet,delayed release (DR/EC) 40 mg PO BID Label Comments: TAKE 1 TABLET BY MOUTH TWICE DAILY BEFORE MEALS acetaminophen 500 mg capsule 500 - 1,000 mg PO Q6H MDD 4000mg PRNQty: 100 0RF Follow Up/Referrals: Sandrine Roque, [place], [employer] [Primary Care Provider] - Stand Alone Forms: Multichannel Info Instructions
--- NOTE | 2022-05-06 12:38 | CRLHL7_ITS ---
For Patients: As a result of the Century Cures Act, medical imaging exams and procedure reports are released immediately into your electronic medical record. You may view this report before your referring provider. If you have questions, please contact your health care provider. Indication: Lightheadedness with left lip numbness Technique: Volumetric multidetector CT images of the head were obtained without the administration of low osmolar intravenous contrast. Comparison: None available Findings: There is no intra-axial or extra-axial fluid collection. There is no mass effect or midline shift. There is age-related cortical atrophy with mild sulcal widening and ex vacuo dilatation of the lateral ventricles. There are chronic small vessel disease changes in the subcortical and periventricular white matter without lost torres-white differentiation. The orbits and their contents are grossly within normal limits. The bony calvarium is grossly intact. The paranasal sinuses are clear. The mastoid air cells are well aerated. Impression: 1. Age-related changes of the brain without acute intracranial abnormality. Please note that all CT scans at this facility use dose modulation, iterative reconstruction, and/or weight-based dosing when appropriate to reduce radiation dose to as low as reasonably achievable. Dictated by Ramirez Newton MD @ 05/06/2022 3:47:30 PM (Electronically Signed)
--- NOTE | 2022-05-06 12:39 | CRLHL7_ITS ---
For Patients: As a result of the Century Cures Act, medical imaging exams and procedure reports are released immediately into your electronic medical record. You may view this report before your referring provider. If you have questions, please contact your health care provider. INDICATION: Chest pain. TECHNIQUE: Chest 1 views. COMPARISON: None. FINDINGS: Cardiovasculature and mediastinum: Heart size and vasculature are normal in caliber and appearance. Lungs and pleural spaces: Lungs are clear. No sign of infiltrate or mass. No sign of pleural effusion. No pneumothorax. Bones and soft tissues: No significant findings. IMPRESSION: No acute or significant findings. Dictated by Driss Zimmerman MD @ 05/06/2022 2:16:40 PM (Electronically Signed)
[2022-05-06 13:50] LABS: PCR FLU A Negative PCR FLU A (Negative); PCR FLU B Negative PCR FLU B (Negative); PCR RSV Negative PCR RSV (Negative)
[2022-05-06 14:23] LABS: SARS PCR* Negative SARS-CoV-2 (Negative)
[2022-05-06 14:36] LABS: Alanine Aminotransferase* 21 U/L (4-50); Albumin* 4.3 g/dL (3.3-5.0); Aspartate Amino Transferase* 47 U/L (12-35); Bilirubin Total* 1.1 mg/dL (0.1-1.5); Blood Urea Nitrogen* 14 mg/dL (7-30); Calcium* 9.5 mg/dL (8.4-10.6); Carbon Dioxide* 19 mmol/L (20-32); Chloride* 105 mmol/L (96-114); Creatinine* 1.2 mg/dL (0.5-1.5); Est. Creatinine Clearance* 37.54; Estimated Glomerular Filt Rate 60 ml/min; Glucose* 85 mg/dL (60-115); Sodium* 131 mmol/L (135-149); Total Protein* 8.1 g/dL (6.0-8.3)
[2022-05-06 14:37] LABS: Alkaline Phosphatase* 88 U/L (40-150); C Reactive Protein* < 0.5 mg/dL (0.5-1.0)
[2022-05-06 14:40] LABS: Troponin, Point-of-Care* 0.01 ng/ml (0.01-0.04)
[2022-05-06 14:53] LABS: Potassium* 4.2 mmol/L (3.6-5.1)
[2022-05-06 15:03] LABS: NT Pro B Type NatriureticPept* 174 pg/mL
--- NOTE | 2022-05-06 15:30 | CRLHL7_ITS ---
For Patients: As a result of the Century Cures Act, medical imaging exams and procedure reports are released immediately into your electronic medical record. You may view this report before your referring provider. If you have questions, please contact your health care provider. INDICATION: Lightheadedness. Sensation deficit. TECHNIQUE: MRI brain: Multiplanar multisequence MR imaging acquired prior to and following intravenous contrast. MRA head: Jbhe-lw-ndggrp imaging acquired. MRA neck: Nsyr-fi-omlnst and postcontrast imaging acquired. COMPARISON: CT brain 05/06/2022. FINDINGS: MRI brain: Prominence of the ventricles and sulci compatible with ergq-fa-jxfdsrhs diffuse cerebral volume loss. No mass effect or midline shift. Patchy and scattered T2 FLAIR hyperintensities in the supratentorial white matter and sarina, typical for ypmz-tf-cuwmehdg chronic microvascular ischemic changes. No diffusion restriction to suggest acute infarction. No intracranial hemorrhage or pathologic extra-axial fluid collection. No pathologic intracranial enhancement. Small developmental venous anomaly inferolateral left frontal lobe. The major arterial flow voids of the skullbase are preserved. Thinning of the ocular lenses. The paranasal sinuses are well aerated. Trace bilateral mastoid effusions. MRA head: The visualized internal carotid, middle cerebral, and anterior cerebral arteries are widely patent. Diminutive flow related signal within the hypoplastic left vertebral artery. The dominant right vertebral, basilar, and left posterior cerebral arteries are widely patent. 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 No intracranial aneurysm or high-flow vascular malformation. MRA neck: The innominate and subclavian arteries are widely patent. The common carotid arteries are widely patent. The internal carotid arteries are widely patent. The right vertebral artery is dominant and the left vertebral artery is markedly hypoplastic. Suggested left vertebral artery origin stenosis. The vertebral arteries are otherwise widely patent. IMPRESSION: MRI brain: 1. No acute intracranial abnormality. 2. Moderate chronic microvascular ischemic changes. 3. Jmsn-qc-pxilwbbg diffuse cerebral volume loss. MRA head/neck: 1. 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 2. Suggested stenosis of the hypoplastic left vertebral artery origin. Dictated by Arturo Clark MD @ 05/06/2022 7:16:41 PM (Electronically Signed)
--- NOTE | 2022-05-06 15:30 | CRLHL7_ITS ---
For Patients: As a result of the Century Cures Act, medical imaging exams and procedure reports are released immediately into your electronic medical record. You may view this report before your referring provider. If you have questions, please contact your health care provider. INDICATION: Lightheadedness. Sensation deficit. TECHNIQUE: MRI brain: Multiplanar multisequence MR imaging acquired prior to and following intravenous contrast. MRA head: Snbf-fd-qkogdc imaging acquired. MRA neck: Jxlx-hz-sdsqug and postcontrast imaging acquired. COMPARISON: CT brain 05/06/2022. FINDINGS: MRI brain: Prominence of the ventricles and sulci compatible with nxdq-hb-qmspoqts diffuse cerebral volume loss. No mass effect or midline shift. Patchy and scattered T2 FLAIR hyperintensities in the supratentorial white matter and sarina, typical for graj-id-rdcvmkab chronic microvascular ischemic changes. No diffusion restriction to suggest acute infarction. No intracranial hemorrhage or pathologic extra-axial fluid collection. No pathologic intracranial enhancement. Small developmental venous anomaly inferolateral left frontal lobe. The major arterial flow voids of the skullbase are preserved. Thinning of the ocular lenses. The paranasal sinuses are well aerated. Trace bilateral mastoid effusions. MRA head: The visualized internal carotid, middle cerebral, and anterior cerebral arteries are widely patent. Diminutive flow related signal within the hypoplastic left vertebral artery. The dominant right vertebral, basilar, and left posterior cerebral arteries are widely patent. 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 No intracranial aneurysm or high-flow vascular malformation. MRA neck: The innominate and subclavian arteries are widely patent. The common carotid arteries are widely patent. The internal carotid arteries are widely patent. The right vertebral artery is dominant and the left vertebral artery is markedly hypoplastic. Suggested left vertebral artery origin stenosis. The vertebral arteries are otherwise widely patent. IMPRESSION: MRI brain: 1. No acute intracranial abnormality. 2. Moderate chronic microvascular ischemic changes. 3. Mubt-kg-boobjpnu diffuse cerebral volume loss. MRA head/neck: 1. 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 2. Suggested stenosis of the hypoplastic left vertebral artery origin. Dictated by Arturo Clark MD @ 05/06/2022 7:16:25 PM (Electronically Signed)
--- NOTE | 2022-05-06 15:48 | CRLHL7_ITS ---
For Patients: As a result of the Century Cures Act, medical imaging exams and procedure reports are released immediately into your electronic medical record. You may view this report before your referring provider. If you have questions, please contact your health care provider. INDICATION: Lightheadedness. Sensation deficit. TECHNIQUE: MRI brain: Multiplanar multisequence MR imaging acquired prior to and following intravenous contrast. MRA head: Cjby-cx-tetgzy imaging acquired. MRA neck: Eaqd-is-dtjbtg and postcontrast imaging acquired. COMPARISON: CT brain 05/06/2022. FINDINGS: MRI brain: Prominence of the ventricles and sulci compatible with rnun-mf-wwgrmgeo diffuse cerebral volume loss. No mass effect or midline shift. Patchy and scattered T2 FLAIR hyperintensities in the supratentorial white matter and sarina, typical for asfy-lv-trrvyfsd chronic microvascular ischemic changes. No diffusion restriction to suggest acute infarction. No intracranial hemorrhage or pathologic extra-axial fluid collection. No pathologic intracranial enhancement. Small developmental venous anomaly inferolateral left frontal lobe. The major arterial flow voids of the skullbase are preserved. Thinning of the ocular lenses. The paranasal sinuses are well aerated. Trace bilateral mastoid effusions. MRA head: The visualized internal carotid, middle cerebral, and anterior cerebral arteries are widely patent. Diminutive flow related signal within the hypoplastic left vertebral artery. The dominant right vertebral, basilar, and left posterior cerebral arteries are widely patent. 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 No intracranial aneurysm or high-flow vascular malformation. MRA neck: The innominate and subclavian arteries are widely patent. The common carotid arteries are widely patent. The internal carotid arteries are widely patent. The right vertebral artery is dominant and the left vertebral artery is markedly hypoplastic. Suggested left vertebral artery origin stenosis. The vertebral arteries are otherwise widely patent. IMPRESSION: MRI brain: 1. No acute intracranial abnormality. 2. Moderate chronic microvascular ischemic changes. 3. Exba-fg-ohqusqwm diffuse cerebral volume loss. MRA head/neck: 1. 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 2. Suggested stenosis of the hypoplastic left vertebral artery origin. Dictated by Arturo Clark MD @ 05/06/2022 7:17:04 PM (Electronically Signed)
[2022-05-06 17:04] LABS: Basophils Absolute Auto 0.07 K/uL (0.00-0.30); Basophils Percent Auto 1.1 % (0.0-3.0); Eosinophils Absolute Auto 0.06 K/uL (0.00-0.50); Hematocrit 42.8 % (37.0-53.0); Hemoglobin* 14.2 gm/dL (13.5-17.5); Lymphocytes Absolute Auto 1.32 K/uL (0.90-2.90); Lymphocytes Percent Auto 21.3 % (20-44); Mean Corpuscular HGB Conc 33 gm/dL (32-36); Mean Corpuscular Hemoglobin 30 pg (26-34); Mean Corpuscular Volume 91 fL (80-100); Monocytes Percent Auto 6.9 % (0.0-11.0); Neutrophils Absolute Auto 4.31 K/uL (1.7-7.0); Neutrophils Percent Auto 69.7 % (42.0-72.0); Platelet Count* 164 K/uL (140-440); RDW Coefficient of Variation % 12.5 % (11.5-15.5); Red Blood Count 4.72 m/uL (4.30-5.90); White Blood Count* 6.19 K/uL (4.50-11.00)
[2022-05-06 17:05] LABS: Slide Review Reflex No
[2022-05-06] MEDS: 0.9 % SODIUM CHLORIDE 500 ML 500 ML IV (18:39)
== END 2022-05-06 20:27 | disposition home or self-care (01) ==
PROVIDERS: Emergency Provider Family Medicine; PCP Nurse Practitioner Family
DX: R42 Dizziness and giddiness (principal); R29.818 Other symptoms and signs involving the nervous system; N18.32 Chronic kidney disease, stage 3b
CPT/HCPCS: 36415; 70450; 70544; 70549; 70553; 71045; 80053; 83880; 84484; 85025; 86140; 87502; 87634; 87635; 94761; 99285; A9575; J7120

== ENCOUNTER 2023-04-30 22:44 | Emergency (ER) | payer MEDICARE, OTHER, SELFPAY ==
--- OUTSIDE RECORDS SUMMARY | 2023-04-30 22:53 | XMS_ITS | Continuity of Care Document ---
Author Name [facility] Organization [facility] Care Team Providers Care Groundskeeper Name Role Phone [facility] Unavailable Unavailable Problems Combined list of problems from Department of Defense and 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 It does not include entries that were removed or entered in error. Problem Status Onset Date Problem Type Date of Resolution Comments Source Actinic Keratosis Active Condition Se 2011 Entered By: MELLISA DOLL Comment: Sees derm locally [facility] Carcinoma, Renal Cell Active Condition Dec 22, 2011 Entered By: MELLISA DOLL Comment: AP right nephrectomy 1988 [facility] Chronic rhinitis Active Condition [facility] Diverticulitis Active Condition Nov 262011 Entered By: MELLISA DOLL Comment: SP partial colectomy 2010 [facility] Gastroesophageal Reflux Disorder Active Condition [facility] Hyperlipidemia Active Condition [facility] Hypertrophy (Benign) of Prostate without Urinary obstruction and other lower Uri Active Condition [facility] Nonspecific abnormal electrocardiogram (ECG) (EKG) (ICD-9-CM 794.31) Active Condition [facility] Personal History of Colonic Polyps Active Condition [facility] SENSORNEUR HEARING LOSS NOS Active Condition [facility] SURGERY Active Condition Dec 21 12 Entered By: MELLISA DOLL Comment: SP cholycystectom y, ventral hernia repair, tonsillectomy, Dec 22, 2011 Entered By: MELLISA DOLL Comment: SP appendectomy, right KAYLA times two, left KAYLA,Dec 22, 2011 Entered By: MELLISA DOLL Comment: SP right nephrectomy, partial colectomy [facility] Tinnitus * (ICD-9-CM 388.30) Active Condition [facility] Medications Combined list of outpatient medications from Department of Defense and 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Medications provided include 1) outpatient medications from the last 15 months, and 2) patient-reported medications. Medication Details Route Status Patient Instructions Prescription Expires Prescription Number Last Dispense Date Ordering Provider Order Date Source AMOXICILLIN (AMOXICILLI N), 500 MG, CAPSULE, ORAL, SANDOZ, 500 ea. BOTTLE Active [id number] 2023 Pharmac y Data Transac tion Service Facilit y ASPIRIN 81MG TAB,EC TAKE ONE TABLET BY MOUTH DAILY ORAL ACTIVE NIELS WAYNE 2011 [facility] ATORVASTATI N CA 20MG TAB TAKE ONE-HALF TABLET BY MOUTH DAILY ORAL ACTIVE NIELS WAYNE 2011 [facility] ATORVASTATI N CALCIUM (atorvastat in calcium), 10 MG, TABLET, ORAL, 'S LAB, 500 ea. BOTTLE Active [id number] 4 2023 Pharmac y Data Transac tion Service Facilit y CLOPIDOGREL (CLOPIDOGRE L BISULFATE), 75 MG, TABLET, ORAL, AUROBINDO PHARM, 500 ea. BOTTLE Active [id number] 2022 Pharmac y Data Transac tion Service Facilit y CLOPIDOGREL (CLOPIDOGRE L BISULFATE), 75 MG, TABLET, ORAL, AUROBINDO PHARM, 500 ea. BOTTLE Active [id number] 2023 Pharmac y Data Transac tion Service Facilit y GABAPENTIN (GABAPENTIN ), 100 MG, CAPSULE, ORAL, ACTAVIS PHARMA,, 500 ea. BOTTLE Cancele d [id number] : 2023 Pharmac y Data Transac tion Service Facilit y GABAPENTIN (GABAPENTIN ), 300 MG, CAPSULE, ORAL, ACTAVIS PHARMA,, 500 ea. BOTTLE Active [id number] 4 2023 Pharmac y Data Transac tion Service Facilit y IPRATROPIUM BR 0.03% SOLN,SPRAY, NASAL SPRAY 1 SPRAY IN EACH NOSTRIL EVERY DAY NEEDED ACTIVE NIELS WAYNE 2011 [facility] OMEPRAZOLE 20MG CAP,EC TAKE 1 CAPSULE BY MOUTH DAILY ORAL ACTIVE NIELS WAYNE 2011 [facility] PANTOPRAZOL E SODIUM (PANTOPRAZO LE SODIUM), 40 MG, TABLET DR, ORAL, MYLAN, 90 ea. BOTTLE Active [id number] 2023 Pharmac y Data Transac tion Service Facilit y PANTOPRAZOL E SODIUM (PANTOPRAZO LE SODIUM), 40 MG, TABLET DR, ORAL, MYLAN, 90 ea. BOTTLE Active [id number] 4 2023 Pharmac y Data Transac tion Service Facilit y TAMSULOSIN HCL (TAMSULOSIN HCL), 0.4 MG, CAP.SR 24H, ORAL, ZYDUS PHARMACEU, 100 ea. BOTTLE Active [id number] 2022 Pharmac y Data Transac tion Service Facilit y TAMSULOSIN HCL 0.4MG CAP TAKE 1 CAPSULE BY MOUTH DAILY ORAL ACTIVE NIELS WAYNE 2011 [facility] Immunizations Combined list of available immunizations from the Department of Defense and 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 Social History Type Response Date Comment Sourc e Tobacco smoking status RIIS FORMER TOBACCO USER 7Y OR GREATER 12/22/2011 [facility] This section is an empty social history section. DoD
--- OUTSIDE RECORDS SUMMARY | 2023-04-30 22:53 | XMS_ITS | Clinical Summary ---
Author Name Unknown Organization [facility] Address [place], [place] [address] Care Team Providers Care [employer] Law Clerk Name Role Phone Sandrine Roque NP Primary Care Provider [phone] Allergies Active Allergy Reactions Criticality Noted Date Comments Hydrocodone-Acetaminoph en Hallucinations 01/01/2013 Lots of noise in head Medications Medication Sig Dispensed Refills Start Date End Date Status fexofenadine (Pam Allergy) 180 mg tablet 0 05/12/2021 Active clopidogreL (PLAVIX) 75 mg tablet TAKE 1 TABLET BY MOUTH EVERY DAY. STOP ASPIRIN 0 06/16/2022 Active tamsulosin (FLOMAX) 0.4 mg capsuleIndicatio ns:benign prostatic hyperplasia with lower urinary tract sx Take 2 Capsules (0.8 mg) by mouth at bedtime. 180 Capsule 3 09/15/2022 Active gabapentin (NEURONTIN) 100 mg capsuleIndicatio ns:Epigastric pain,Chronic abdominal pain TAKE 1 CAPSULE BY MOUTH IN THE AM AND TAKE 1 CAPSULE AT NIGHT 180 Capsule 3 12/19/2022 Active pantoprazole (PROTONIX) 40 mg delayed-release tabletIndication s:Abdominal pain, LUQ (left upper quadrant),Chroni c GERD Take 1 Tablet (40 mg) by mouth two times daily before meals. 180 Tablet 3 04/24/2023 Active atorvastatin (LIPITOR) 10 mg tabletIndication s:Hypercholester olemia Take 1 Tablet (10 mg) by mouth at bedtime. 90 Tablet 3 04/24/2023 Active gabapentin (NEURONTIN) 300 mg capsuleIndicatio ns:Abdominal pain, LUQ (left upper quadrant),Chroni c abdominal pain Take 1 Capsule (300 mg) by mouth once daily. 90 Capsule 3 06/12/2023 Active atorvastatin (LIPITOR) 10 mg tabletIndication s:Hypercholester olemia TAKE 1 TABLET(10 MG) BY MOUTH EVERY DAY 90 Tablet 0 02/02/2023 04/24/19 24 Discontinued(Reo rder (E-cancel not sent)) pantoprazole (PROTONIX) 40 mg delayed-release tabletIndication s:Abdominal pain, LUQ (left upper quadrant),Chroni c GERD TAKE 1 TABLET BY MOUTH TWICE DAILY BEFORE MEALS 90 Tablet 0 02/17/2023 04/07/19 24 Discontinued pantoprazole (PROTONIX) 40 mg delayed-release tabletIndication s:Abdominal pain, LUQ (left upper quadrant),Chroni c GERD Take 1 Tablet (40 mg) by mouth two times daily before meals. 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 01/03/2023 Chronic rhinitis 08/17/2022 08/17/2022 Chronic abdominal pain 08/17/2022 Benign paroxysmal positional vertigo 05/25/2022 08/17/2022 Vertebral artery stenosis 05/25/20222022 Facial paresthesia 05/25/2022 08/17/2022 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 08/17/2022 Actinic keratosis 06/16/2021 Overview: Dec 22, 2011 Entered By: HARRY DOLL Comment: Sees derm locally Hypertrophy of prostate with out urinary obstruction and other lower urinary tract symptoms (LUTS) 06/16/2021 Personal history of colonic polyps 06/16/2021 Sensorineural hearing loss (SNHL) 06/16/2021 Tinnitus 06/16/2021 Insomnia, idiopathic 06/16/2021 Stage 3a chronic kidney disease 01/21/2021 Anterior epistaxis 01/21/2021 S/p nephrectomy 08/04/2020 Hyperlipidemia 08/04/2020 Essential hypertension 08/04/2020 Diverticular disease of large intestine 02/20/20 19 08/17/2022 Obstruction of esophagus 01/30/2018 Incisional hernia 12/11/2012 Resolved Problems Problem Noted Date Diagnosed Date Resolved Date Malignant neoplasm of right kidney, except renal pelvis 06/16/2021 06/16/2021 Encounters Date Type Department Care Team Description 04/25/2023 [facility]phone [facility] [address] [facility] [address] Josias Aden MD Questions (flu shot ) 04/24/2023 8:20 AM RETAIL SUPPORT MANAGER Office Visit [facility] [address] [place] [address] Josias Aden MD Medicare ANNUAL (subsequent) Visit; Constipation (Concerned he is having a flare up with his diverticulitis); Immunization/Injectio n 04/24/2023 Travel 04/20/2023 Travel 04/05/2023 Refill [facility] [address] [place] [address] Sandrine Roque, [employer] Refill Request (Pantoprazole) 02/17/2023 Refill [facility] [address] [place] [address] Sandrine Roque, [employer] Refill Request (Pantoprazole) 02/02/2023 Refill [facility] [address] [facility] [place] [address] Sandrine Roque, [employer] Refill Request (Atorvastatin) from Last 3 Months Immunizations Name Administration Dates Next Due COVID-19 vaccine ([facility] 30mcg/0.3mL) NINA TANG 12/31/2020,05/27/2020,05/06/2020 Influenza RIV4 (Age 18+ Year s) PRESERV FREE 01/14/2019 Influenza Virus, Unspecified 12/22/2011 Influenza, High-dose Inactivated 021,11/23/2017,12/06/2016,2015,01/06/2015,12/16/2013,01/04/2013,0 12/14/2010 Influenza, High-dose Quadriv alent Inactivated 01/25/2023,02/02/2022 Influenza, IIV3 (Age 6-35 mos) 12/18/2009 Influenza, Inactivated AIIV4 (Age 65+ Years) Preserv Free 04/24/2023,02/09/2022,01/20/2020 Pneumococcal Poly,23-Valent (Pneumovax) 11/23/2017 Pneumococcal conj 13-Valent (Prevnar 13) 01/06/2015 TD, UNSPECIFIED 12/22/2011 Tdap 01/09/2017 Zoster (Shingrix-RZV, recombinant) 04/05/2020, Zoster (Zostavax-ZVL, live) 01/03/2011, 1 Family History Medical History Relation Name Comments Heart Disease Father Hyperlipidemia Father Other Father Old Age Heart failure Mother Relation Name Status Comments Brother Alive Father Mother Sister Alive Social History Tobacco Use Types Packs/Day Years Used Date Smoking Tobacco: Former Cigarettes 0.5 33 1 326 - 1988 Smokeless Tobacco: Never Tobacco Cessation:Counseling Given: Not Answered Comments:30 years ago Alcohol Use Standard Drinks/Week Comments Never 0 (1 standard drink = 0.6 oz pur e alcohol) PHQ-2 Answer Date Recorded PHQ-2 TOTAL SCORE 0 04/24/2023 Social Connections Answer Date Recorded Frequency of Communication with Friends and Fami ly 0 04/21/2023 Financial Resource Strain Answer Date R ecorded Difficulty of Paying Living Expenses 3 04/21/2023 Difficulty of Paying Living Expenses Not on file 04/21/2023 Food Insecurity Answer Date Recorded Worried About Running Out of Food in the Last Ye ar 1 04/21/2023 Transportation Needs Answer Date Record ed Lack of Transportation (Medical) 1 04/21/2023 Housing Stability Answer Date Recorded Unable to Pay for Housing in the Last Year 1 04/21/2023 Sex and Gender Information Value Date Recorded Sex Assigned at Male 10/10/2020 11:22 AM CDT Gender Identity Male 10/10/2020 11:22 AM CDT Sexual Orientation Not on file Obstetrics History Last Filed Vital Signs Vital Sign Reading Time Taken Comments Blood Pressure 136/86 04/24/2023 8:30 AM RETAIL SUPPORT MANAGER Pulse 76 04/24/2023 8:30 AM RETAIL SUPPORT MANAGER Temperature 36.7 ??C (98 ??F) 03/04/2022 2:07 PM RETAIL SUPPORT MANAGER Respiratory Rate 18 05/17/2022 11:2 8 AM RETAIL SUPPORT MANAGER Oxygen Saturation 98% 04/24/2023 8:30 AM RETAIL SUPPORT MANAGER Inhaled Oxygen Concentration - - Weight 79.8 kg (175 lb 14.4 oz) 04/24/2023 8:30 AM RETAIL SUPPORT MANAGER Height 167.6 cm (5' 6) 04/24/2023 8:30 AM RETAIL SUPPORT MANAGER Body Mass Index 28.39 04/24/2023 8:30 AM RETAIL SUPPORT MANAGER Plan of Treatment Health Maintenance Due Date Last Done Comments BMI (ht and wt on same day) for age 18+ 04/24/2024 04/24/2023, 03/04/2022, 02/23/2022, Additional history exists Medicare Wellness for age 65+ 04/24/2024, 02/23/2022, 01/21/2021 Depression screening for age 12+ 04/25/2024 04/25/2023, 04/24/2023, 02/23/2022, Additional history exists Tetanus booster 01/09/2027 01/09/2017, 12/22/2011 Tdap Completed 01/09/2017 Pneumococcal series for age 65+ Completed 8, 01/06/2015 Zoster (shingles) series for age 50+ Completed 04/05/2020, 02/05/2020, 01/03/2011, Additional history exists COVID-19 vaccine series Completed 01/26/20, 10/13/2022, 02/02/2022, Additional history exists Influenza for age 65+ Completed 04/24/2023 , 01/25/2023, 02/09/2022, Additional history exists Care Teams [employer] Law Clerk Relationship Specialty [place] [address] [place] [address] PCP - General Nurse Practitioner 11/06/20
[2023-04-30 22:55] VITALS: BP 199/99; PULSE 80; RESP 18; TEMP 36.6; O2SAT 97; BMI 27.4
--- NOTE | 2023-04-30 23:08 | ED_ITS ---
HPI - General Adult General Chief complaint: Abdominal Pain Stated complaint: Abdominal pain, back pain Time Seen by Provider: 04/30/23 22:54 Source: patient Mode of arrival: ambulatory Limitations: no limitations History of Present Illness HPI narrative: 83-year-old male presenting today with abdominal pain. Patient states that he feels bloated and like his abdomen is going to ?explode?. He states that the pain has been present for several days. He believes it is likely due to constipation. He states that for couple of weeks now he has not had a good bowel movement. He states that he has very tiny bowel movements of that do not relieve his symptoms of feeling bloated and pressure in his abdomen. He states that he has had diverticulitis in the past and his stools are reminiscent of when he had diverticulitis however, the pain is different. His diverticulitis pain was across the lower abdomen, this pain is higher and more of a pressure sensation. Patient denies any nausea or vomiting. He states that his appetite has been normal. He states that he is passing gas but feels that it is less than usual. He denies any new urinary symptoms. He denies any fevers or chills. Past medical history is significant for subclavian artery stenosis, chronic abdominal pain, BPPV, vertebral artery stenosis, facial paresthesias yeah, vertebral basilar insufficiency, hypertrophy of the prostate, sensorineural hearing loss, tinnitus, chronic insomnia, stage 3 chronic kidney disease status post nephrectomy, hyperlipidemia, hypertension, diverticular disease of the large intestine, incisional hernia, history of malignant neoplasm of the right kidney. His current medications include atorvastatin, Plavix, Pam, gabapentin, Protonix, Flomax. Related Data Home Medications Medication Instructions Recorded Confirmed atorvastatin 10 mg tablet 10 mg PO HS 10/12/21 06/10/22 fexofenadine 60 mg tablet (Pam 60 mg PO Q12H 10/12/21 06/10/22 Allergy) finasteride 5 mg tablet 5 mg PO DAILY 10/12/21 06/10/22 tamsulosin 0.4 mg capsule 0.4 mg PO DAILY 10/12/21 06/10/22 gabapentin 100 mg capsule 200 mg PO HS 12/29/21 06/10/22 pantoprazole 40 mg tablet,delayed 40 mg PO BID 12/29/21 06/10/22 release acetaminophen 500 mg oral powder 500 mg PO Q6H PRN 06/16/22 06/16/22 packet (Tylenol Extra Strength) clopidogrel 75 mg tablet (Plavix) 75 mg PO QDAY 06/16/22 06/16/22 Previous Rx's Medication Instructions Recorded amoxicillin 500 mg capsule 2,000 mg (4 x 500 mg) PO ONCE #4 06/20/22 caps Allergies Allergy/AdvReac Type Severity Reaction Status Date / Time hydrocodone [From Vicodin] Allergy Verified 06/16/22 12:58 Review of Systems Status of ROS: Reports: 10 or more systems reviewed and unremarkable except as noted in History and below [facility] Medical History Hypertrophy of prostate without urinary obstruction ?N40.0 - Benign prostatic hyperplasia without lower urinary tract symptoms (ICD-10) Stage 3 chronic kidney disease ?N18.30 - Chronic kidney disease, stage 3 unspecified (ICD-10) Hypertension ?I10 - Essential (primary) hypertension (ICD-10) Ventral hernia ?K43.9 - Ventral hernia without obstruction or gangrene (ICD-10) Elevated cholesterol ?E78.00 - Pure hypercholesterolemia, unspecified (ICD-10) Arthritis ?M19.90 - Unspecified osteoarthritis, unspecified site (ICD-10) Acid reflux ?K21.9 - Gastro-esophageal reflux disease without esophagitis (ICD-10) Anterior epistaxis ?R04.0 - Epistaxis (ICD-10) Surgical History 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) ?Z96.612 - Presence of left artificial shoulder joint (ICD-10) History of incisional hernia repair ?Z98.890 - Other specified postprocedural states (ICD-10) ?Z87.19 - Personal history of other diseases of the digestive system (ICD-10) History of appendectomy ?Z90.49 - Acquired absence of other specified parts of digestive tract (ICD- 10) History of bowel resection ?Z90.49 - Acquired absence of other specified parts of digestive tract (ICD- 10) Hx laparoscopic cholecystectomy ?Z90.49 - Acquired absence of other specified parts of digestive tract (ICD- 10) History of right nephrectomy ?Z90.5 - Acquired absence of kidney (ICD-10) History of revision of total replacement of right hip joint ?Z96.641 - Presence of right artificial hip joint (ICD-10) History of left hip replacement ?Z96.642 - Presence of left artificial hip joint (ICD-10) History of right hip replacement ?Z96.641 - Presence of right artificial hip joint (ICD-10) Family History Father CHF (congestive heart failure) Mother COPD (chronic obstructive pulmonary disease) Sister Congenital hip deformity Social History Narrative: -Michelle Smoking Status: Former smoker Do you use any of these nicotine containing products: None Second hand tobacco smoke exposure: No How often do you have a drink containing alcohol: monthly or less Alcohol type: beer How many standard drinks containing alcohol do you have on a typical day: 1 or 2 How often do you have six or more drinks on one occasion: Never AUDIT-C Alcohol total score: 1 Non-prescribed substance use: denies use Caffeine: No Exam Narrative: Exam Narrative: Well-nourished well-developed patient in no acute distress. Alert and oriented. Answers questions appropriately. Mood and affect are appropriate. Thoughts are goal oriented and rational. No tangential or magical thinking noted. Patient speaks in full sentences without needing to catch his breath. HEENT: Normocephalic atraumatic. Extraocular muscles are intact. Conjunctivae are moist without any icterus noted. Moist mucous membranes. Cardiovascular: Heart is regular rate and rhythm. Lungs: Clear to auscultation bilaterally no wheezes rhonchi or rales are appreciated. Patient takes deep breaths without any discomfort. Abdomen: Soft and non distended, protuberant. He does have normal bowel sounds. He has mild epigastric discomfort. He has no discomfort across the lower abdomen or in the periumbilical region. Negative Bass sign. No obvious masses appreciated. Extremities: Bilateral lower extremities show trace edema. Skin: Well perfused without any obvious rashes. Const: Vital Signs, click to edit/add: Vital Signs - 24 hr 04/30/23 22:55 Temperature 97.8 F Pulse Rate [Pulse Oximeter] 80 Respiratory Rate 18 Blood Pressure [Ri ght Upper Arm] 199/99 H Pulse Oximetry 97 Oxygen Delivery Me thod Room Air Course Course ED Course: Labs were drawn. CBC was unremarkable. UA had 1+ leukocyte esterase, not otherwise convincing for infection. Chemistry show hyponatremia with a sodium of 130. Patient received a 500cc of normal saline. Normal CRP. Normal LFTs and lipase. Flat and upright abdominal x-ray, read by me, do not show any signs concerning for obstruction. He does have moderate amount of stool. Vital Signs Vital signs: Initial Vital Signs Temperature 97.8 F 04/30/23 22:55 Temperature Source Temporal Artery Scan 04/30/23 22:55 Pulse Rate 80 04/30/23 22:55 Respiratory Rate 18 04/30/23 22:55 Blood Pressure 199/99 H 04/30/23 22:55 Blood Pressure Mean 132 H 04/30/23 22:55 Blood Pressure Position Sitting 04/30/23 22:55 Pulse Oximetry 97 04/30/23 22:55 Oxygen Delivery Method Room Air 04/30/23 22:55 Vital Signs Temperature 97.8 F 04/30/23 22:55 Pulse Rate 80 04/30/23 22:55 Respiratory Rate 18 04/30/23 22:55 Blood Pressure 199/99 H 04/30/23 22:55 Pulse Oximetry 97 04/30/23 22:55 Oxygen Delivery Method Room Air 04/30/23 22:55 Temperature 97.8 F 04/30/23 22:55 Pulse Rate 80 04/30/23 22:55 Respiratory Rate 18 04/30/23 22:55 Blood Pressure 199/99 H 04/30/23 22:55 Pulse Oximetry 97 04/30/23 22:55 Oxygen Delivery Method Room Air 04/30/23 22:55 Medical Decision Making [facility] Narrative Medical decision making narrative: 83-year-old male with constipation. Do not see any evidence of infection or inflammation with his blood work. I do not think an abdominal CT scan is necessary at this time. I think that he needs to increase his MiraLax to 2 scoops daily, and start taking a stool softener like Dulcolax on a daily basis. Patient was in agreement with this recommendation and had no other questions. Medical Records Medical records reviewed: Yes I reviewed the patient's medical records Lab Data Lab results reviewed: Yes I reviewed the patient's lab results Labs: Lab Results 02/04/24 02/04/24 Range/Units 23:15 23:20 WBC 7.10 (4.50-11.00) K/uL RBC 4.74 (4.30-5.90) m/uL Hgb 14.2 (13.5-17.5) gm/dL Hct 42.4 (37.0-53.0) % MCV 90 (80-100) fL MCH 30 (26-34) pg MCHC 34 (32-36) gm/dL RDW Coeff of [place] 12.6 (11.5-15.5) % Plt Count 198 (140-440) K/uL Neut % (Auto) 71.5 (42.0-72.0) % Lymph % (Auto) 16.2 L (20-44) % [place] % (Auto) 8.3 (0.0-11.0) % Eos % (Auto) 2.4 (0.0-7.0) % Baso % (Auto) 1.0 (0.0-3.0) % Neut # (Auto) 5.08 (1.7-7.0) K/uL Lymph # (Auto) 1.20 (0.90-2.90) K/uL [place] # (Auto) 0.60 (0.00-0.90) K/UL Eos # (Auto) 0.17 (0.00-0.50) K/uL Baso # (Auto) 0.07 (0.00-0.30) K/uL Abs Immat Gran (auto) 0.04 (0.00-0.30) K/uL Imm/Tot Granulo (auto) 0.6 % Sodium 130 L (135-149) mmol/L Potassium 4.7 (3.6-5.1) mmol/L Chloride 95 L (96-114) mmol/L Carbon Dioxide 24 (20-32) mmol/L Anion Gap 11 (7-15) mEq/L BUN 15 (7-30) mg/dL Creatinine 1.5 (0.5-1.5) mg/dL Estimated Creat Clear 33.08 Estimated GFR 46 ml/min Glucose 107 (60-115) mg/dL Calcium 9.7 (8.4-10.6) mg/dL Total Bilirubin 0.8 (0.1-1.5) mg/dL Direct Bilirubin 0.2 (0.0-0.5) mg/dL AST 29 (12-35) U/L ALT 16 (4-50) U/L Alkaline Phosphatase 112 (40-150) U/L C-Reactive Protein 0.6 (0.5-1.0) mg/dL Total Protein 8.7 H (6.0-8.3) g/dL Albumin 4.7 (3.3-5.0) g/dL Lipase 100 (23-300) U/L Urine Color Yellow (Yellow) Urine Appearance Clear (Clear) Urine pH 7.0 (5.0-8.5) Ur Specific [place] 1.015 (1.000-1.030) Urine Protein Negative (Negative) Urine Glucose (UA) Negative (Negative) Urine Ketones Negative (Negative) Urine Blood Trace-intact A (Negative) Urine Nitrite Negative (Negative) Urine Bilirubin Negative (Negative) Urine Urobilinogen 0.2 (0.2-1.0) Ur Leukocyte Esterase 1+ A (Negative) Urine RBC 0-2 (0-2) Urine WBC 2-5 (0-5) Ur Squamous Epith Cells Few (None-Few) Urine Bacteria Few A (None) Discharge Plan Discharge Clinical Impression: Constipation Patient Disposition: Home, Self-Care Condition: Stable Additional Instructions: Increase MiraLax to 2 scoops daily. Can cut back down when stools become more consistent. Continue with the stool softener you are taking, the Dulcolax, on a daily basis. Prescriptions: No Action atorvastatin 10 mg tablet 10 mg PO HS tamsulosin 0.4 mg capsule 0.4 mg PO DAILY finasteride 5 mg tablet 5 mg PO DAILY fexofenadine [Pam Allergy] 60 mg tablet 60 mg PO Q12H Tylenol Extra Strength 500 mg powder in packet 500 mg PO Q6H PRN clopidogrel [Plavix] 75 mg tablet 75 mg PO QDAY gabapentin 100 mg capsule 200 mg PO HS Patient Comments: TAKE ONE CAPSULE BY MOUTH AT NIGHT FOR WEEK. THEN INCREASE TO 2 CAPSULES AT NIGHT pantoprazole 40 mg tablet,delayed release (DR/EC) 40 mg PO BID Patient Comments: TAKE 1 TABLET BY MOUTH TWICE DAILY BEFORE MEALS amoxicillin 500 mg capsule 2,000 mg PO ONCE Qty: 4 3RF Rx Instructions: Take all 4 capsules, 1 hour prior to dental appointment Follow Up/Referrals: Sandrine Roque, FOREX TRADER, OUTBOARD MOTOR INSPECTOR [Referring] - Stand Alone Forms: MyHealth Info Instructions
--- NOTE | 2023-04-30 23:08 | CRLHL7_ITS ---
For Patients: As a result of the Century Cures Act, medical imaging exams and procedure reports are released immediately into your electronic medical record. You may view this report before your referring provider. If you have questions, please contact your health care provider. INDICATION: Constipation. TECHNIQUE: Abdomen radiographs, 2 views. COMPARISON: None. FINDINGS: Bowel: Bowel pattern is normal. Moderate colonic stool burden, correlate for constipation. Soft tissues: No definite pneumoperitoneum. No definite soft tissue mass. Surgical clips in the right upper quadrant and right lower pelvis. Bones: Unremarkable for age. Status post bilateral total hip arthroplasty. IMPRESSION: Moderate colonic stool burden compatible constipation. Dictated by Emery Borja MD @ 05/01/2023 12:15:23 AM (Electronically Signed)
--- OUTSIDE RECORDS SUMMARY | 2023-04-30 23:16 | XMS_ITS | Continuity of Care Document ---
Author Name [facility] Organization [facility] Care Team Providers Care Employment Coach Name Role Phone [facility] Unavailable Unavailable Problems Combined list of problems [...] [facility] SENSORNEUR HEARING LOSS NOS Active Condition [facility] SURGERY Active Condition Dec 21 12 Entered By: MELLISA DOLL Comment: SP cholycystectom y, ventral hernia repair, tonsillectomy, Dec 22, 2011 Entered By: MELLISA DOLL Comment: SP appendectomy, right KAYLA times two, left KAYLA,Dec 22, 2011 Entered By: MELLISA DOLL Comment: SP right nephrectomy, partial colectomy [facility] Tinnitus * (ICD-9-CM 388.30) Active Condition [facility] Medications Combined list of outpatient medications from Department of Defense and 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Medications provided include 1) outpatient medications from the last 15 months, and 2) patient-reported medications. Medication Details Route Status Patient Instructions Prescription Expires Prescription Number Last Dispense Date Ordering Provider Order Date Source AMOXICILLIN (AMOXICILLI N), 500 MG, CAPSULE, ORAL, SANDOZ, 500 ea. BOTTLE Active [id number] 2023 Pharmac y Data Transac tion Service Facilit y ASPIRIN 81MG TAB,EC TAKE ONE TABLET BY MOUTH DAILY ORAL ACTIVE NIELS WAYNE 2011 DARCI KRUGER ATORVASTATI N CA 20MG TAB TAKE ONE-HALF TABLET BY MOUTH DAILY ORAL ACTIVE NIELS WAYNE 2011 [facility] ATORVASTATI N CALCIUM (atorvastat in calcium), 10 MG, TABLET, ORAL, 'S LAB, 500 ea. BOTTLE Active [id number] 2023 Pharmac y Data Transac tion Service Facilit y CLOPIDOGREL (CLOPIDOGRE L BISULFATE), 75 MG, TABLET, ORAL, AUROBINDO PHARM, 500 ea. BOTTLE Active [id number] 2022 Pharmac y Data Transac tion Service Facilit y CLOPIDOGREL (CLOPIDOGRE L BISULFATE), 75 MG, TABLET, ORAL, AUROBINDO PHARM, 500 ea. BOTTLE Active [id number] 2023 Pharmac y Data Transac tion Service Facilit y GABAPENTIN (GABAPENTIN ), 100 MG, CAPSULE, ORAL, ACTAVIS PHARMA,, 500 ea. BOTTLE Cancele d [id number] : 2023 Pharmac y Data Transac tion Service Facilit y GABAPENTIN (GABAPENTIN ), 300 MG, CAPSULE, ORAL, ACTAVIS PHARMA,, 500 ea. BOTTLE Active [id number] 4 2023 Pharmac y Data Transac tion Service Facilit y IPRATROPIUM BR 0.03% SOLN,SPRAY, NASAL SPRAY 1 SPRAY IN EACH NOSTRIL EVERY DAY NEEDED ACTIVE NIELS WAYNE 2011 ADRCI KRUGER OMEPRAZOLE 20MG CAP,EC TAKE 1 CAPSULE BY MOUTH DAILY ORAL ACTIVE NIELS WAYNE 2011 DARCI KRUGER PANTOPRAZOL E SODIUM (PANTOPRAZO LE SODIUM), 40 MG, TABLET DR, ORAL, MYLAN, 90 ea. BOTTLE Active [id number] 4 2023 Pharmac y Data Transac tion Service Facilit y PANTOPRAZOL E SODIUM (PANTOPRAZO LE SODIUM), 40 MG, TABLET DR, ORAL, MYLAN, 90 ea. BOTTLE Active [id number] 2023 Pharmac y Data Transac tion Service Facilit y TAMSULOSIN HCL (TAMSULOSIN HCL), 0.4 MG, CAP.SR 24H, ORAL, ZYDUS PHARMACEU, 100 ea. BOTTLE Active [id number] 3 2022 Pharmac y Data Transac tion Service Facilit y TAMSULOSIN HCL 0.4MG CAP TAKE 1 CAPSULE BY MOUTH DAILY ORAL ACTIVE NIELS WAYNE 2011 DARCI VALERA [facility] Immunizations Combined list of available immunizations from the Department of Defense and 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 Immunization Series Date Given Administered By Site Reaction Lot Number CVX Code Drug Fire Extinguisher Installer Status Comments Source zoster recombinant 2020 DONG, () Not Given zoster recombina nt [facility] zoster recombinant 2019 OVERHOLT, () Not Given zoster recombina nt [facility] INFLUENZA, UNSPECIFIED FORMULATION 2011 88 complet ed [facility] TD(ADULT) UNSPECIFIED FORMULATION 2011 139 complet ed San[employer]i Pastuer [id number] [facility] KRUGER ZOSTER LIVE 2010 121 complet ed [facility] Social History Combined list of available smoking, tobacco, and other social history from Department of Defense and 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 Social History Type Response Date Comment Sourc e Tobacco smoking status CAIS FORMER TOBACCO USER 7Y OR GREATER 12/22/2011 [facility] VALERA [facility] This section is an empty social history section. DoD
--- OUTSIDE RECORDS SUMMARY | 2023-04-30 23:16 | XMS_ITS | Clinical Summary ---
Author Name Unknown Organization [employer] [facility] Address [place], [place] [address] Care Team Providers Care Division Plant Engineer Name Role Phone Sandrine Roque NP Primary Care Provider [phone] Allergies Active Allergy Reactions Criticality Noted Date [...] Type Department Care Team Description 04/25/2023 Telephone [facility] [address] [facility] [place] [address] Josias Aden MD Questions (flu shot ) 04/24/2023 8:20 AM YEAST WASHER Office Visit [facility] [address] [place] [address] Josias Aden MD Medicare ANNUAL (subsequent) Visit; Constipation (Concerned he is having a flare up with his diverticulitis); Immunization/Injectio n 04/24/2023 Travel 04/20/2023 Travel 04/05/2023 Refill [facility] [address] [place] [address] Sandrine Roque, 1 YEAR OLDS PRESCHOOL TEACHER Refill Request (Pantoprazole) 02/17/2023 Refill [facility] [address] [place] [address] Sandrine Roque, 1 YEAR [employer] PRESCHO[employer] TE[employer]ER Refill Request (Pantoprazole) 02/02/2023 Refill [facility] [address] [place] [address] Sandrine Roque, 1 YEAR OLDS PRESCHOOL TEACHER Refill Request (Atorvastatin) from Last 3 Months Immunizations Name Administration Dates Next Due COVID-19 vaccine ([employer] 30mcg/0.3mL) NINA TANG 12/31/2020,05/27/2020,05/06/2020 Influenza RIV4 (Age [...] Smoking Tobacco: Former Cigarettes 0.5 33 1 626 - 1988 Smokeless Tobacco: Never Tobacco Cessation:Counseling [...] Comments Blood Pressure 136/86 04/24/2023 8:30 AM YEAST WASHER Pulse 76 04/24/2023 8:30 AM YEAST WASHER Temperature 36.7 ??C (98 ??F) 03/04/2022 2:07 PM YEAST WASHER Respiratory Rate 18 05/17/2022 11:2 8 AM YEAST WASHER Oxygen Saturation 98% 04/24/2023 8:30 AM YEAST WASHER Inhaled Oxygen Concentration - - Weight 79.8 kg (175 lb 14.4 oz) 04/24/2023 8:30 AM YEAST WASHER Height 167.6 cm (5' 6) 04/24/2023 8:30 AM YEAST WASHER Body Mass Index 28.39 04/24/2023 8:30 AM YEAST WASHER Plan of Treatment Health Maintenance Due Date [...] 01/25/2023, 02/09/2022, Additional history exists Care Teams Division Plant Engineer Relationship Specialty [place] [address] [place] [address] PCP - General Nurse Practitioner 11/06/20
[2023-04-30 23:34] LABS: Appearance Urine Clear (Clear); Bilirubin Urine Negative (Negative); Blood Urine Trace-intact (Negative); Color Urine Yellow (Yellow); Glucose Urine Negative (Negative); Ketones Urine Negative (Negative); Leukocyte Esterase Urine 1+ (Negative); Nitrite Urine Negative (Negative); Protein Urine Negative (Negative); Specific Gravity Urine 1.015 (1.000-1.030); Urobilinogen Urine 0.2 (0.2-1.0)
[2023-04-30 23:40] LABS: Bacteria Urine Few; RBC Urine 0-2 (0-2); Squamous Epithelial Cell Urine Few (None-Few)
[2023-04-30 23:40] LABS: Basophils Absolute Auto 0.07 K/uL (0.00-0.30); Eosinophils Absolute Auto 0.17 K/uL (0.00-0.50); Eosinophils Percent Auto 2.4 % (0.0-7.0); Hematocrit 42.4 % (37.0-53.0); Hemoglobin* 14.2 gm/dL (13.5-17.5); Immature Granulocytes Abs Auto 0.04 K/uL (0.00-0.30); Immature Granulocytes Pct Auto 0.6 %; Lymphocytes Percent Auto 16.2 % (20-44); Mean Corpuscular HGB Conc 34 gm/dL (32-36); Mean Corpuscular Hemoglobin 30 pg (26-34); Mean Corpuscular Volume 90 fL (80-100); Monocytes Percent Auto 8.3 % (0.0-11.0); Neutrophils Absolute Auto 5.08 K/uL (1.7-7.0); Neutrophils Percent Auto 71.5 % (42.0-72.0); Platelet Count* 198 K/uL (140-440); RDW Coefficient of Variation % 12.6 % (11.5-15.5); Red Blood Count 4.74 m/uL (4.30-5.90)
[2023-04-30 23:42] LABS: Slide Review Reflex No
[2023-04-30 23:44] LABS: Albumin* 4.7 g/dL (3.3-5.0); Chloride* 95 mmol/L (96-114); Potassium* 4.7 mmol/L (3.6-5.1); Sodium* 130 mmol/L (135-149)
[2023-04-30 23:46] LABS: Creatinine* 1.5 mg/dL (0.5-1.5); Est. Creatinine Clearance* 33.08; Estimated Glomerular Filt Rate 46 ml/min
[2023-04-30 23:47] LABS: Alanine Aminotransferase* 16 U/L (4-50); Alkaline Phosphatase* 112 U/L (40-150); Anion Gap 11 mEq/L (7-15); Aspartate Amino Transferase* 29 U/L (12-35); Bilirubin Direct* 0.2 mg/dL (0.0-0.5); Bilirubin Total* 0.8 mg/dL (0.1-1.5); Blood Urea Nitrogen* 15 mg/dL (7-30); Calcium* 9.7 mg/dL (8.4-10.6); Carbon Dioxide* 24 mmol/L (20-32); Glucose* 107 mg/dL (60-115); Lipase* 100 U/L (23-300); Total Protein* 8.7 g/dL (6.0-8.3)
[2023-04-30 23:50] LABS: C Reactive Protein* 0.6 mg/dL (0.5-1.0)
[2023-05-01] MEDS: 0.9 % SODIUM CHLORIDE 500 ML 500 ML IV (00:14)
[2023-05-01 00:26] VITALS: BP 148/81; PULSE 76; RESP 16; O2SAT 97
== END 2023-05-01 00:36 | disposition home or self-care (01) ==
PROVIDERS: Emergency Provider Family Medicine; PCP Family Medicine
DX: K59.00 Constipation, unspecified (principal)
CPT/HCPCS: 36415; 74019; 80048; 80076; 81001; 83690; 85025; 86140; 87086; 99283; 99284; J7030

== ENCOUNTER 2024-03-30 13:50 | Emergency (ER) | payer MEDICARE, OTHER, SELFPAY ==
--- OUTSIDE RECORDS SUMMARY | 2024-03-30 13:52 | XMS_ITS | Continuity of Care Document ---
Author Name [facility] User [facility] Address Unknown Organization Unknown Address Unknown Alerts, Allergies and Adverse Reactions FILTER APPLIED:All Known Active Allergies Substance Reaction Onset Status No Known Allergies ([id number]) Allergic Reaction (Unk nown) Active Procedures FILTER APPLIED:Only known Procedures with Onset Date within the last 5 years Procedure Date Procedure Provider Additiona l Information Status X-RAY EXAM ABDOMEN 2 VIEWS (47203) Completed ROUTINE VENIPUNCTURE (33023) Completed METABOLIC PANEL TOTAL CA (36643) Completed HEPATIC FUNCTION PANEL (10704) Completed EMERGENCY DEPT VISIT LOW MDM (57534) Completed ASSAY OF LIPASE (39637) Completed COMPLETE CBC W/AUTO DIFF WBC (43851) Completed C-REACTIVE PROTEIN (12751) Completed URINE CULTURE/COLONY COUNT (89939) Completed URINALYSIS AUTO W/SCOPE (58710) Completed Encounters FILTER APPLIED:Only known Encounters with Admission Date within the last 5 years Encounter Location Admission Discharge Billing Code Director Critical Care Attender Outpatient [facility] Amelia Charlton Unknown [facility] ONI JONES Unknown [id number] 70.621 SALAS ZUNIGA Emergency [id number] 70.621 VITA DING
--- OUTSIDE RECORDS SUMMARY | 2024-03-30 13:52 | XMS_ITS | Continuity of Care Document ---
Author Name [facility] Organization [facility] Care Team Providers Care Hand Sprayer Name Role Phone [facility] Unavailable Unavailable Problems Combined list of problems [...] [facility] SENSORNEUR HEARING LOSS NOS Active Condition [facility] SURGERY Active Condition Dec 21 12 Entered By: MELLISA DOLL Comment: SP cholycystectom y, ventral hernia repair, tonsillectomy, Dec 22, 2011 Entered By: MELLISA DOLL Comment: SP appendectomy, right KAYLA times two, left KAYLA,Dec 22, 2011 Entered By: MELLISA DOLL Comment: SP right nephrectomy, partial colectomy [facility] Tinnitus * (ICD-9-CM 388.30) Active Condition [facility] Medications Combined list of outpatient medications from Department of Defense and 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Medications provided include 1) outpatient medications from the last 15 months, and 2) patient-reported medications. Medication Details Route Status Patient Instructions Prescription Expires Prescription Number Last Dispense Date Ordering Provider Order Date Order Qty Source ASPIRIN 81MG TAB,EC TAKE ONE TABLET BY MOUTH DAILY ORAL ACTIVE NIELS WAYNE 2011 DARCI KRUGER ATORVASTATI N CA 20MG TAB TAKE ONE-HALF TABLET BY MOUTH DAILY ORAL ACTIVE NIELS WAYNE 2011 DARCI VALERA [facility] ATORVASTATI N CALCIUM (atorvastat in calcium), 10 MG, TABLET, ORAL, 'S LAB, 500 ea. BOTTLE Active [id number] 4 2023 90 Pharmac y Data Transac tion Service Facilit y ATORVASTATI N CALCIUM (atorvastat in calcium), 10 MG, TABLET, ORAL, 'S LAB, 500 ea. BOTTLE Active [id number] 2023 90 Pharmac y Data Transac tion Service Facilit y CLOPIDOGREL (CLOPIDOGRE L BISULFATE), 75 MG, TABLET, ORAL, AUROBINDO PHARM, 500 ea. BOTTLE Active [id number] 2023 30 Pharmac y Data Transac tion Service Facilit y CLOPIDOGREL (CLOPIDOGRE L BISULFATE), 75 MG, TABLET, ORAL, AUROBINDO PHARM, 500 ea. BOTTLE Active [id number] 2023 30 Pharmac y Data Transac tion Service Facilit y CLOPIDOGREL (CLOPIDOGRE L BISULFATE), 75 MG, TABLET, ORAL, AUROBINDO PHARM, 500 ea. BOTTLE Active [id number] 4 2023 30 Pharmac y Data Transac tion Service Facilit y CLOPIDOGREL (CLOPIDOGRE L BISULFATE), 75 MG, TABLET, ORAL, AUROBINDO PHARM, 500 ea. BOTTLE Active [id number] 4 2023 30 Pharmac y Data Transac tion Service Facilit y CLOPIDOGREL (CLOPIDOGRE L BISULFATE), 75 MG, TABLET, ORAL, AUROBINDO PHARM, 500 ea. BOTTLE Active [id number] 2023 30 Pharmac y Data Transac tion Service Facilit y FINASTERIDE (FINASTERID E), 5 MG, TABLET, ORAL, EXELAN PHARMACE, 90 ea. BOTTLE Active [id number] 2023 90 Pharmac y Data Transac tion Service Facilit y GABAPENTIN (GABAPENTIN ), 100 MG, CAPSULE, ORAL, ACTAVIS PHARMA,, 500 ea. BOTTLE Cancele d [id number] : 2023 0 Pharmac y Data Transac tion Service Facilit y GABAPENTIN (GABAPENTIN ), 300 MG, CAPSULE, ORAL, ACTAVIS PHARMA,, 500 ea. BOTTLE Cancele d [id number] : 2023 0 Pharmac y Data Transac tion Service Facilit y GABAPENTIN (GABAPENTIN ), 300 MG, CAPSULE, ORAL, ACTAVIS PHARMA,, 500 ea. BOTTLE Active [id number] 2023 90 Pharmac y Data Transac tion Service Facilit y IPRATROPIUM BR 0.03% SOLN,SPRAY, NASAL SPRAY 1 SPRAY IN EACH NOSTRIL EVERY DAY NEEDED NASAL ACTIVE NIELS WAYNE 2011 [facility]CI VALERA [facility] OMEPRAZOLE 20MG CAP,EC TAKE 1 CAPSULE BY MOUTH DAILY ORAL ACTIVE NIELS WAYNE 2011 [facility]A [facility] PANTOPRAZOL E SODIUM (PANTOPRAZO LE SODIUM), 40 MG, TABLET DR, ORAL, AUROBINDO PHARM, 90 ea. BOTTLE Active [id number] 4 2023 180 Pharmac y Data Transac tion Service Facilit y PANTOPRAZOL E SODIUM (PANTOPRAZO LE SODIUM), 40 MG, TABLET DR, ORAL, MYLAN, 90 ea. BOTTLE Cancele d [id number] : 2023 0 Pharmac y Data Transac tion Service Facilit y PANTOPRAZOL E SODIUM (PANTOPRAZO LE SODIUM), 40 MG, TABLET DR, ORAL, MYLAN, 90 ea. BOTTLE Active [id number] 2023 180 Pharmac y Data Transac tion Service Facilit y PANTOPRAZOL E SODIUM (PANTOPRAZO LE SODIUM), 40 MG, TABLET DR, ORAL, MYLAN, 90 ea. BOTTLE Active [id number] 4 2023 60 Pharmac y Data Transac tion Service Facilit y SULFAMETHOX AZOLE-TRIME THOPRIM (SULFAMETHO XAZOLE/TRIM ETHOPRIM), 800-160MG, TABLET, ORAL, AUROBINDO PHARM, 500 ea. BOTTLE Active [id number] 4 2023 10 Pharmac y Data Transac tion Service Facilit y TAMSULOSIN HCL (TAMSULOSIN HCL), 0.4 MG, CAP.SR 24H, ORAL, ZYDUS PHARMACEU, 100 ea. BOTTLE Active [id number] 4 2023 180 Pharmac y Data Transac tion Service Facilit y TAMSULOSIN HCL 0.4MG CAP TAKE 1 CAPSULE BY MOUTH DAILY ORAL ACTIVE NIELS WAYNE 2011 DARCI VALERA [facility] Immunizations Combined list of available immunizations from the Department of Defense and 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 Immunization Series Date Given Administered By Site Reaction Lot Number CVX Code Drug Keyboard Teacher Status Comments Source zoster recombinant 2020 DONG, () Not Given zoster recombina nt [facility] zoster recombinant 2019 OVERHOLT, () Not Given zoster recombina nt [facility] INFLUENZA, UNSPECIFIED FORMULATION 2011 88 complet ed [facility]CI VALERA [facility] TD(ADULT) UNSPECIFIED FORMULATION 2011 139 complet ed San[employer]i Pastuer [id number] D[facility]CI VALERA [facility] ZOSTER LIVE 2010 121 complet ed [facility] Social History Combined list of available smoking, tobacco, and other social history from Department of Defense and 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 Social History Type Response Date Comment Sourc e Tobacco smoking status NHIS FORMER TOBACCO USER 7Y OR GREATER 12/22/2011 D[facility]CI VALERA [facility] This section is an empty social history section. DoD
--- OUTSIDE RECORDS SUMMARY | 2024-03-30 13:52 | XMS_ITS | Clinical Summary ---
Author Organization [facility] Address [place], [place] [address] Care Team Providers Care Excellence Leader Name Role Phone Josias Aden MD Primary Care Provider Nohemi Hobbs RN Unavailable Tano Escobar MD Unavailable [phone] Alivia Zamoar MD Unavailable Brittani Bautista MBBS Unavailable [phone] EscEri RN Unavailable Kenya Glez TIRE GROOVER Unavailable Lety Vargas MD Unavailable Jesus Frederick PALEONTOLOGICAL HELPER Unavailable [phone] Allergies Active Allergy Reactions Criticality Noted Date Comments Hydrocodone-Acetamin ophen Hallucinations,Other - Describe In Comment Field Unknown 01/01/2013 Lots of noise in head Medications fexofenadine (Pam Allergy) 180 mg tablet 2 Active pantoprazole (PROTONIX) 40 mg delayed-release tabletIndications :Abdominal pain, LUQ (left upper quadrant),Chronic GERD Take 1 Tablet (40 mg) by mouth two times daily before meals. 180 Tablet 3 4 Active finasteride (PROSCAR) 5 mg tabletIndications :BPH without urinary obstruction Take 1 Tablet (5 mg) by mouth once daily in the morning. 90 Tablet 1 4 Active tamsulosin (FLOMAX) 0.4 mg capsuleIndication s:benign prostatic hyperplasia with lower urinary tract sx Take 2 Capsules (0.8 mg) by mouth at bedtime. 180 Capsule 2 4 Active BABY ASPIRIN ORAL Take by mouth. Active lisinopriL (PRINIVIL; ZESTRIL) 10 mg tabletIndications :Essential hypertension Take 1 Tablet (10 mg) by mouth once daily. 30 Tablet 11 4 Active gabapentin (NEURONTIN) 300 mg capsuleIndication s:Abdominal pain, LUQ (left upper quadrant),Chronic abdominal pain TAKE 1 CAPSULE(300 MG) BY MOUTH EVERY DAY 90 Capsule 2 4 Active atorvastatin (LIPITOR) 10 mg tabletIndications :Hypercholesterol emia Take 1 Tablet (10 mg) by mouth at bedtime. 90 Tablet 2 4 Active Active Problems Problem Noted Date Diagnosed Date Depression, recurrent 10/24/2023 Skin cancer 10/04/2023 Overview (11/20/2023): 09/27/2023: Right posterior ear: Basal cell carcinoma, nodular type: Mohs Dr. 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 01/03/2023 Chronic rhinitis 08/17/2022 08/17/2022 Chronic abdominal pain 08/17/2022 Benign paroxysmal positional vertigo 05/25/2022 08/17/2022 Vertebral artery stenosis 05/25/20222022 Facial paresthesia 05/25/2022 08/17/2022 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 08/17/2022 Actinic keratosis 06/16/2021 Overview (06/16/2021): Dec 22, 2011 Entered By: HARRY DOLL Comment: Sees derm locally Hypertrophy of prostate with out urinary obstruction and other lower urinary tract symptoms (LUTS) 06/16/2021 Personal history of colonic polyps 06/16/2021 Sensorineural hearing loss (SNHL) 06/16/2021 Tinnitus 06/16/2021 Insomnia, idiopathic 06/16/2021 Stage 3a chronic kidney disease 01/21/2021 S/p nephrectomy 08/04/2020 Hyperlipidemia 08/04/2020 Essential hypertension 08/04/2020 Diverticular disease of large intestine 02/20/20 19 08/17/2022 Obstruction of esophagus 01/30/2018 Incisional hernia 12/11/2012 Resolved Problems Problem Noted Date Diagnosed Date Resolved Date Malignant neoplasm of right kidney, except renal pelvis 06/16/2021 06/16/2021 Anterior epistaxis 01/21/2021 4 Encounters Date Type Department Care Team Description 03/28/2024 Telephone [facility] [address] [place] [address] Kenya Glez, TIRE GROOVER Appointment 02/16/2024 11:00 AM SENIOR DRAFTER Office Visit [facility] [place] [id number] [place] [address] Deacon Arias MD Procedure (CYSTOSCOPY) 02/16/2024 Travel 02/13/2024 11:45 AM SENIOR DRAFTER Office Visit [facility] [address] [place] [phone] Kenya Glez, TIRE GROOVER Follow Up 02/13/2024 Telephone [facility] [address] [place] [address] Kenya Glez, TIRE GROOVER Appointment 02/13/2024 Travel 02/12/2024 9:00 AM SENIOR DRAFTER Orders Only [facility] [address] [place] [address] Lab, Farm Lab 02/11/2024 Travel 02/08/2024 Travel 02/07/2024 Travel 01/27/2024 Refill [facility] [address] [place] [address] Josias Aden MD Refill Request (Atorvastatin) 01/20/2024 Refill [facility] [address] [place] [address] Josias Aden MD Refill Request (Gabapentin) 01/08/2024 1:00 PM CDT Office Visit [facility] [address] [facility] [address] [place] [address] Mauricio Springer MD Derm Problem (Follow up) 01/08/2024 Travel 01/05/2024 Travel from Last 3 Months Immunizations Name Administration Dates Next Due COVID-19 VACCINE SPIKEVAX (M ODERNA 50MCG/0.5ML) 12YO+ PFS 12/25/2023 COVID-19 vaccine (Pfizer-Bio NTech 30mcg/0.3mL) PF, MDV 12/31/2020,05/27/2020,05/06/2020 Influenza RIV4 (Age 18+ Year s) PRESERV FREE 01/14/2019 Influenza Virus, Unspecified 12/22/2011 Influenza, High-dose Inactivated 021,11/23/2017,12/06/2016,2015,01/06/2015,12/16/2013,01/04/2013,0 12/14/2010 Influenza, High-dose Quadriv alent Inactivated 01/25/2023,02/02/2022 Influenza, IIV3 (Age 6-35 mos) 12/18/2009 Influenza, Inactivated AIIV4 (Age 65+ Years) Preserv Free 04/24/2023,02/09/2022,01/20/2020 Influenza, Inactivated IIV3 (Age 65+ Years) Preserv Free 12/25/2023 Pneumococcal Poly,23-Valent (Pneumovax) 11/23/2017 Pneumococcal conj 13-Valent [...] Smoking Tobacco: Former Cigarettes 0.5 33 1 956 - 1988 Passive Smoke Exposure: Past Smokeless Tobacco: Never Tobacco Cessation:Counseling Given: Not Answered Comments:30 years ago Alcohol Use Standard Drinks/Week Comments Never 0 (1 standard drink = 0.6 oz pur e alcohol) none [facility] Utilities Answer Date Recorded Do you have trouble paying f or utilities (for example, heat, electricity, water, phone)? Yes 04/20/2023 PHQ-2 Answer Date Recorded PHQ-2 TOTAL SCORE 3 10/24/2023 Social Connections Answer Date Recorded Do you often feel lonely or isolated from those around you? 0 04/20/2023 Financial Resource Strain Answer Date R ecorded Difficulty of Paying Living Expenses 3 04/21/2023 Difficulty of Paying Living Expenses Not on file 04/21/2023 Food Insecurity Answer Date Recorded Do you worry your food will run out before you are able to buy more? 1 04/20/2023 Transportation Needs Answer Date Record ed Does lack of transportation keep you from medica l appointments? 1 04/20/2023 Does lack of transportation keep you from work, meetings or getting things that you need? 1 04/20/2023 Housing Stability Answer Date Recorded What is your housing situation today? 1 04/20/2023 Interpersonal Safety Answer Date Record ed Are you being hit, kicked, p ushed or yelled at (see row info)? No 11/02/2023 Interpersonal Safety Abuse 12 - 18 Not on file 11/02/2023 Interpersonal Safety Ambulatory Vulnerability No t on file 11/02/2023 Sex and Gender Information Value Date Recorded Sex Assigned at Male 10/10/2020 11:22 AM CDT Legal Sex Male 1:51 PM CDT Gender Identity Male 10/10/2020 11:22 AM CDT Sexual Orientation Not on file Obstetrics History Last Filed Vital Signs Vital Sign Reading Time Taken Comments Blood Pressure 155/72 02/13/2024 11:55 AM SENIOR DRAFTER Pulse 94 02/16/2024 11:07 AM SENIOR DRAFTER Temperature 36.4 C (97.6 F) 02/13/2024 11:55 AM SENIOR DRAFTER Respiratory Rate 17 02/13/2024 11:55 AM SENIOR DRAFTER Oxygen Saturation 97% 02/16/2024 11:07 AM SENIOR DRAFTER Inhaled Oxygen Concentration - - Weight 81 kg (178 lb 8 oz) 02/16/2024 11:[address] Height 162.6 cm (5' 4) 11/14/2023 9:29 AM CDT Body Mass Index 30.64 11/14/2023 9:29 AM CDT Plan of Treatment Upcoming Encounters Date Type Department Care Team (Late st Contact Info) Description 04/09/2024 1:10 PM SENIOR DRAFTER [place] [facility] [address] [facility] [address] [place] [address] Alivia Zamora MD [address] [facility] [address] [place] [address] 05/03/2024 7:30 AM SENIOR DRAFTER Appointment [facility] [address] [place] [address] 05/06/2024 1:45 PM SENIOR DRAFTER Orders Only [facility] [address] [place] [address] Lab, Farm 05/08/2024 2:00 PM SENIOR DRAFTER Office Visit [facility] [facility] [place] [facility] [address] [facility] [address] [place] [address] Lety Vargas MD [address] [place] [address] Health Maintenance Due Date Last Done Comments RSV vaccine for adults or (1 - 1-dose 75+ series) 2014 COVID-19 vaccine series ( season) 2024 12/25/2023, 01/25/2023, 10/13/2022, Additional history exists Medicare Wellness for age 65+ 04/24/2024, 02/23/2022, 01/21/2021 Depression screening for age 12+ 11/02/2024 11/03/2023, 10/26/2023, 10/25/2023, Additional history exists BMI (ht and wt on same day) for age 18+ 11/13/2024 11/14/2023, 11/07/2023, 10/17/2023, Additional history exists Tetanus booster 01/09/2027 01/09/2017, 12/22/2011 Tdap Completed 01/09/2017 Pneumococcal series for age 50+ Completed 8, 01/06/2015 Zoster (shingles) series for age 50+ Completed 04/05/2020, 02/05/2020, 01/03/2011, Additional history exists Influenza for age 65+ Completed 12/25/2023 , 04/24/2023, 01/25/2023, Additional history exists Medical Devices Implanted Type Area Electronic Masking System Operator Device Identifier Shelf Expiration Date Model / Serial / Lot Stent Uret [id number] Percuflex Hydroplus - [id number] Implanted:Qty : 1 on 10/27/2023 by Deacon Arias MD at [facility] Uro Implants Left: Ureter [facility] 05/10/2026 [id number] / / [id number] Procedures Procedure Name Priority Date/Time Associated Diagnosis Comments CBC WITH AUTO DIFFERENTIAL Routine 02/12/2024 8:58 AM SENIOR DRAFTER Malignant melanoma, unspecified site (HC) COMP METABOLIC PANEL Routine 02/12/2024 8:58 AM SENIOR DRAFTER Malignant melanoma, unspecified site (HC) from Last 3 Months Results * CBC AND DIFFERENTIAL (02/12/2024 8:58 AM SENIOR DRAFTER) WHITE BLOOD CELL COUNT 7.1 3.8 - 10.8 Thousand/u L [facility] RED BLOOD CELL COUNT 4.32 4.20 - 5.80 Million/uL [facility] HEMOGLOBIN 13.2 13.2 - 17.1 g/dL [facility] HEMATOCRIT 40.0 38.5 - 50.0 % [facility] MCV 92.6 80.0 - 100.0 fL [facility] MCH 30.6 27.0 - 33.0 pg [facility] MCHC 33.0 32.0 - 36.0 g/dL [facility] Comment: For adults, a slight decrease in the calculated MCHC value (in the range of 30 to 32 g/dL) is most likely not clinically significant; however, it should be interpreted with caution in correlation with other red cell parameters and the patient's clinical condition. RDW 12.7 11.0 - 15.0 % [facility] PLATELET COUNT 189 140 - 400 Thousand/u L [facility] MPV 10.8 7.5 - 12.5 fL [facility] ABSOLUTE NEUTROPHILS 4,871 1,500 - 7,800 cells/uL [facility] ABSOLUTE LYMPHOCYTES 1,498 850 - 3,900 cells/uL [facility] ABSOLUTE MONOCYTES 469 200 - 950 cells/uL [facility] ABSOLUTE EOSINOPHILS 170 15 - 500 cells/uL [facility] ABSOLUTE BASOPHILS 92 0 - 200 cells/uL [facility] NEUTROPHILS 68.6 % [facility] LYMPHOCYTES 21.1 % [facility] MONOCYTES 6.6 % [facility] EOSINOPHILS 2.4 % [facility] BASOPHILS 1.3 % [facility] Blood BLOOD SPECIMEN / Unknown 02/12/2024 8:58 AM SENIOR DRAFTER 02/12/2024 8:58 AM SENIOR DRAFTER us Lety Vargas MD HEMATOLOGY Final Resu lt [facility] [address] [place] [address], [facility] [address] [place] [address] * (ABNORMAL) COMP METABOLIC PANEL (02/12/2024 8:58 AM SENIOR DRAFTER) GLUCOSE 107(H) 65 - 99 mg/dL [facility] Comment: Fasting reference interval For someone without known diabetes, a glucose value between 100 and 125 mg/dL is consistent with prediabetes and should be confirmed with a follow-up test. UREA NITROGEN (BUN) 21 7 - 25 mg/dL [facility] CREATININE 1.45(H) 0.70 - 1.22 mg/dL [facility] EGFR 48(L) > OR = 60 mL/min/1.7 3m2 [facility] BUN/CREATININE RATIO 14 6 - 22 (calc) [facility] SODIUM 134(L) 135 - 146 mmol/L [facility] POTASSIUM 4.1 3.5 - 5.3 mmol/L [facility] CHLORIDE 101 98 - 110 mmol/L [facility] CARBON DIOXIDE 24 20 - 32 mmol/L [facility] CALCIUM 9.5 8.6 - 10.3 mg/dL [facility] PROTEIN, TOTAL 7.0 6.1 - 8.1 g/dL [facility] ALBUMIN 4.0 3.6 - 5.1 g/dL [facility] GLOBULIN 3.0 1.9 - 3.7 g/dL (calc) [facility] ALBUMIN/GLOBULIN RATIO 1.3 1.0 - 2.5 (calc) [facility] BILIRUBIN, TOTAL 0.6 0.2 - 1.2 mg/dL [facility] ALKALINE PHOSPHATASE 72 35 - 144 U/L [facility] AST 21 10 - 35 U/L [facility] ALT 12 9 - 46 U/L [facility] Blood BLOOD SPECIMEN / Unknown 02/12/2024 8:58 AM SENIOR DRAFTER 02/12/2024 8:58 AM SENIOR DRAFTER Lety Vargas MD CHEMISTRY Final Resu lt [facility] [address] [place] [address], [place] [phone] [facility] [address] [place] [address] from Last 3 Months Insurance [employer] MEDICARE PART A HB ONLY [facility] Advance Directives Documents on File Type Date Recorded Patient Cans Vacuum Tester Expl anation Healthcare Directive 05/04/2019 020 * Full Code (Latest Code Status on File) Date Activated Date Inactivated Comments 10/27/2023 7:45 AM 10/27/2023 2:37 PM Question Answer Comments Code Status Discussion: Reviewed Preferences * Full Code Date Activated Date Inactivated Comments 10/26/2023 12:13 PM 10/26/2023 7:07 PM Question Answer Comments Code Status Discussion: Reviewed Preferences Care Teams Excellence Leader Relationship Specialty [place] [address] [place] [address] PCP - General Family Practice 05/31/23 Nohemi Hobbs, CHRISTI [address] [address] Nurse Navigator - Oncology Registered Nurse 10/03/23 Tano Escobar MD [address] [place] [address] Surgical Oncologist Surgery - Oncology 10/03/23 Alivia Zamora MD [address] [address] Dermatology Dermatology 10/04/23 Brittani Bautista MBBS [address] [place] [address] Cardiovascular Disease 10/12/23 Eri Young RN [address] [place] [address] Nurse Navigator - Oncology Registered Nurse 11/29/23 Kenya Glez TIRE GROOVER [address] [place] [address] Nurse Practitioner Hematology and Oncology 11/30/23 Lety Vargas MD [address] [place] [address] Medical Oncologist Hematology and Oncology 11/30/23 [place], ASHLYN Oconnor [address] [place] [address] Wrapper Sizer Oncology 02/22/24
[2024-03-30 13:54] VITALS: BP 177/103; PULSE 81; RESP 16; TEMP 36.7; O2SAT 99; BMI 29.2
--- NOTE | 2024-03-30 14:26 | ED_ITS ---
History of Present Illness General Chief Complaint: Epistaxis/Nosebleed Stated Complaint: nose bleed Time Seen by Provider: 03/30/24 13:54 History of Present Illness HPI Narrative: This 84-year-old male comes in reporting a nose bleed that occurred last night and again this morning. Currently he is not bleeding. He does feel like there is some clot in the posterior aspect of his nasal cavity. He states that he has had recurrent nose bleeds since falling about 4 5 years ago at which time he did fracture his nose. He reports that he is using bacitracin at night to lubricate and moisten his nares. He does not report any lightheadedness or shortness of breath. Related Data Home Medications ?Medication ?Instructions ?Recorded ?Confirmed atorvastatin 10 mg tablet 10 mg PO HS 10/12/21 03/30/24 fexofenadine 60 mg tablet (Pam 60 mg PO Q12H 10/12/21 06/10/22 Allergy) finasteride 5 mg tablet 5 mg PO DAILY 10/12/21 03/30/24 tamsulosin 0.4 mg capsule 0.4 mg PO DAILY 10/12/21 03/30/24 pantoprazole 40 mg tablet,delayed 40 mg PO BID 12/29/21 03/30/24 release acetaminophen 500 mg oral powder 500 mg PO Q6H PRN 06/16/22 06/16/22 packet (Tylenol Extra Strength) clopidogrel 75 mg tablet (Plavix) 75 mg PO QDAY 06/16/22 06/16/22 escitalopram oxalate 5 mg tablet 5 mg PO DAILY 03/30/24 03/30/24 gabapentin 300 mg capsule 300 mg PO DAILY 03/30/24 03/30/24 lisinopril 10 mg tablet 10 mg PO DAILY 03/30/24 03/30/24 Allergies Allergy/AdvReac Type Severity Reaction Status Date / Time hydrocodone (From Vicodin) Allergy Verified 06/16/22 12:58 Review of Systems Status of ROS: Reports: 10 or more systems reviewed and unremarkable except as noted in History and below Narrative: Constitutional: No fevers, no weight gain or loss. Eyes: No discharge. No vision changes. HENT: No congestion, no sore throat, no ear pain. Recurrent bleeding from the right nostril. Cardiovascular: No chest pain, no palpitations. Respiratory: No shortness of breath, no wheezes, no cough. Gastrointestinal: No abdominal pain, no vomiting, no diarrhea. Genitourinary: No dysuria, no hematuria. Musculoskeletal: Normal range of motion. Skin: No rashes, no pruritis. Neurological: No dizziness, weakness, sensory change, speech change. Endo/Heme/Allergies: No bruising or bleeding. No polydipsia. Pysch: no suicidality, no anxiety, no insomnia. All other systems reviewed and are negative. PFSH PFS Medical History Hypertrophy of prostate without urinary obstruction ?N40.0 - Benign prostatic hyperplasia without lower urinary tract symptoms (ICD-10) Stage 3 chronic kidney disease ?N18.30 - Chronic kidney disease, stage 3 unspecified (ICD-10) Hypertension ?I10 - Essential (primary) hypertension (ICD-10) Ventral hernia ?K43.9 - Ventral hernia without obstruction or gangrene (ICD-10) Elevated cholesterol ?E78.00 - Pure hypercholesterolemia, unspecified (ICD-10) Arthritis ?M19.90 - Unspecified osteoarthritis, unspecified site (ICD-10) Acid reflux ?K21.9 - Gastro-esophageal reflux disease without esophagitis (ICD-10) Anterior epistaxis ?R04.0 - Epistaxis (ICD-10) Surgical History 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) ?Z96.612 - Presence of left artificial shoulder joint (ICD-10) History of incisional hernia repair ?Z98.890 - Other specified postprocedural states (ICD-10) ?Z87.19 - Personal history of other diseases of the digestive system (ICD-10) History of appendectomy ?Z90.49 - Acquired absence of other specified parts of digestive tract (ICD- 10) History of bowel resection ?Z90.49 - Acquired absence of other specified parts of digestive tract (ICD- 10) Hx laparoscopic cholecystectomy ?Z90.49 - Acquired absence of other specified parts of digestive tract (ICD- 10) History of right nephrectomy ?Z90.5 - Acquired absence of kidney (ICD-10) History of revision of total replacement of right hip joint ?Z96.641 - Presence of right artificial hip joint (ICD-10) History of left hip replacement ?Z96.642 - Presence of left artificial hip joint (ICD-10) History of right hip replacement ?Z96.641 - Presence of right artificial hip joint (ICD-10) Family History Father CHF (congestive heart failure) Mother COPD (chronic obstructive pulmonary disease) Sister Congenital hip deformity Social History Narrative: -Michelle Smoking Status: Former smoker Do you use any of these nicotine containing products: None Second hand tobacco smoke exposure: No How often do you have a drink containing alcohol: monthly or less Alcohol type: beer How many standard drinks containing alcohol do you have on a typical day: 1 or 2 How often do you have six or more drinks on one occasion: Never AUDIT-C Alcohol total score: 1 Non-prescribed substance use: denies use Caffeine: No Exam Narrative: Exam Narrative: Constitutional: Well-developed, well-nourished, no acute distress. HEENT: Normocephalic, atraumatic. Left nostril appears normal. Right nostril has some sign of previous bleeding on the anterior aspect of the septum. There is no active bleeding. Posterior to this area is clear with no sign of bleeding or clot. Neck: Normal range of motion. Nontender. Supple. Heart: Regular. No murmurs. Normal rate. Intact distal pulses. Lungs: Clear to auscultation. No chest discomfort. No wheezes, rhonchi, or rales. Abdomen: Normal bowel sounds. Nontender. No rebound tenderness. Genitalia: Deferred. Back: No midline tenderness. Normal range of motion. Extremities: Normal range of motion. No injury. Skin: Intact. No rash. Warm. No erythema or pallor. Neurologic: No altered sensation. No weakness. Alert and oriented. Psychiatric: No suicidality. No anxiety or depression. No insomnia. Nursing notes and vitals signs are reviewed. Const: Vital Signs, click to edit/add: Vital Signs - 24 hr 03/30/24 13:54 Temperature 98.1 F Pulse Rate [Pulse Oximeter] 81 Respiratory Rate 16 Blood Pressure [Ri ght Upper Arm] 177/103 H Pulse Oximetry 99 Oxygen Delivery Me thod Room Air Course Vital Signs Vital signs: Initial Vital Signs Temperature 98.1 F 03/30/24 13:54 Temperature Source Temporal Artery Scan 03/30/24 13:54 Pulse Rate 81 03/30/24 13:54 Respiratory Rate 16 03/30/24 13:54 Blood Pressure 177/103 H 03/30/24 13:54 Blood Pressure Mean 127 H 03/30/24 13:54 Blood Pressure Position Sitting 03/30/24 13:54 Pulse Oximetry 99 03/30/24 13:54 Oxygen Delivery Method Room Air 03/30/24 13:54 Vital Signs Temperature 98.1 F 03/30/24 13:54 Pulse Rate 81 03/30/24 13:54 Respiratory Rate 16 03/30/24 13:54 Blood Pressure 177/103 H 03/30/24 13:54 Pulse Oximetry 99 03/30/24 13:54 Oxygen Delivery Method Room Air 03/30/24 13:54 Temperature 98.1 F 03/30/24 13:54 Pulse Rate 81 03/30/24 13:54 Respiratory Rate 16 03/30/24 13:54 Blood Pressure 177/103 H 03/30/24 13:54 Pulse Oximetry 99 03/30/24 13:54 Oxygen Delivery Method Room Air 03/30/24 13:54 MDM - Epistaxis MDM Narrative Medical decision making narrative: This patient has had recurrent epistaxis and did have such this morning and again last night. Currently he arrives with no active symptoms. There is area of injury to the anterior septum on the right nostril. There is no active bleeding that requires intervention at this time. I did provide the patient with a nasal clamp and gave instructions as to what to do for prevention of nose bleeds and for stopping a nosebleed when it recurs. Discharge Plan Discharge Clinical Impression: Epistaxis Patient Disposition: Home, Self-Care Condition: Stable Additional Instructions: Keep the nasal passages moist and be very gentle to allow for healing. If rebleeding occurs use Afrin and apply the nasal clamp. If bleeding persists despite these measures return to emergency department. Prescriptions: No Action atorvastatin 10 mg tablet 10 mg PO HS tamsulosin 0.4 mg capsule 0.4 mg PO DAILY finasteride 5 mg tablet 5 mg PO DAILY fexofenadine [Pam Allergy] 60 mg tablet 60 mg PO Q12H Tylenol Extra Strength 500 mg powder in packet 500 mg PO Q6H PRN clopidogrel [Plavix] 75 mg tablet 75 mg PO QDAY pantoprazole 40 mg tablet,delayed release (DR/EC) 40 mg PO BID Patient Comments: TAKE 1 TABLET BY MOUTH TWICE DAILY BEFORE MEALS lisinopril 10 mg tablet 10 mg PO DAILY gabapentin 300 mg capsule 300 mg PO DAILY escitalopram oxalate 5 mg tablet 5 mg PO DAILY Follow Up/Referrals: Josias Aden MD [Primary Care Provider] - Stand Alone Forms: [employer] Info Instructions
--- OUTSIDE RECORDS SUMMARY | 2024-03-30 14:44 | XMS_ITS | Continuity of Care Document ---
Author Name [facility] Organization [facility] Care Team Providers Care Stripe Matcher Name Role Phone [facility] Unavailable Unavailable Problems Combined list of problems [...] [facility] SENSORNEUR HEARING LOSS NOS Active Condition [facility] SURGERY Active Condition Dec 21 12 Entered By: MELLISA DOLL Comment: SP cholycystectom y, ventral hernia repair, tonsillectomy, Dec 22, 2011 Entered By: MELLISA DOLL Comment: SP appendectomy, right KAYLA times two, left KAYLA,Dec 22, 2011 Entered By: MELLISA DOLL Comment: SP right nephrectomy, partial colectomy [facility] Tinnitus * (ICD-9-CM 388.30) Active Condition [facility] Medications Combined list of outpatient medications [...] ORAL ACTIVE NIELS WAYNE 2011 DARCI VALERA [facility] ATORVASTATI N CALCIUM (atorvastat in calcium), 10 MG, TABLET, ORAL, 'S LAB, 500 ea. BOTTLE Active [id number] 4 2023 90 Pharmac y Data Transac tion Service Facilit y ATORVASTATI N CALCIUM (atorvastat in calcium), 10 MG, TABLET, ORAL, 'S LAB, 500 ea. BOTTLE Active [id number] 4 2023 90 Pharmac y Data Transac tion Service Facilit y CLOPIDOGREL (CLOPIDOGRE L BISULFATE), 75 MG, TABLET, ORAL, AUROBINDO PHARM, 500 ea. BOTTLE Active [id number] 4 2023 30 Pharmac y Data Transac tion Service Facilit y CLOPIDOGREL (CLOPIDOGRE L BISULFATE), 75 MG, TABLET, ORAL, AUROBINDO PHARM, 500 ea. BOTTLE Active [id number] 4 2023 30 Pharmac y Data Transac tion Service Facilit y CLOPIDOGREL (CLOPIDOGRE L BISULFATE), 75 MG, TABLET, ORAL, AUROBINDO PHARM, 500 ea. BOTTLE Active [id number] 2023 30 Pharmac y Data Transac tion Service Facilit y CLOPIDOGREL (CLOPIDOGRE L BISULFATE), 75 MG, TABLET, ORAL, AUROBINDO PHARM, 500 ea. BOTTLE Active [id number] 4 2023 30 Pharmac y Data Transac tion Service Facilit y CLOPIDOGREL (CLOPIDOGRE L BISULFATE), 75 MG, TABLET, ORAL, AUROBINDO PHARM, 500 ea. BOTTLE Active [id number] 4 2023 30 Pharmac y Data Transac tion Service Facilit y FINASTERIDE (FINASTERID E), 5 MG, TABLET, ORAL, EXELAN PHARMACE, 90 ea. BOTTLE Active [id number] 4 2023 90 Pharmac y Data Transac tion Service Facilit y GABAPENTIN (GABAPENTIN ), 100 MG, CAPSULE, ORAL, ACTAVIS PHARMA,, 500 ea. BOTTLE Cancele d [id number] : 2023 0 Pharmac y Data Transac tion Service Facilit y GABAPENTIN (GABAPENTIN ), 300 MG, CAPSULE, ORAL, ACTAVIS PHARMA,, 500 ea. BOTTLE Cancele d [id number] : 2023 0 Pharmac y Data Transac tion Service Facilit y GABAPENTIN (GABAPENTIN ), 300 MG, CAPSULE, ORAL, ACTAVIS PHARMA,, 500 ea. BOTTLE Active [id number] 2023 90 Pharmac y Data Transac tion Service Facilit y IPRATROPIUM BR 0.03% SOLN,SPRAY, NASAL SPRAY 1 SPRAY IN EACH NOSTRIL EVERY DAY NEEDED NASAL ACTIVE NIELS WAYNE 2011 [facility] OMEPRAZOLE 20MG CAP,EC TAKE 1 CAPSULE BY MOUTH DAILY ORAL ACTIVE NIELS WAYNE 2011 [facility] PANTOPRAZOL E SODIUM (PANTOPRAZO LE SODIUM), 40 MG, TABLET DR, ORAL, AUROBINDO PHARM, 90 ea. BOTTLE Active [id number] 2023 180 Pharmac y Data Transac tion Service Facilit y PANTOPRAZOL E SODIUM (PANTOPRAZO LE SODIUM), 40 MG, TABLET DR, ORAL, MYLAN, 90 ea. BOTTLE Cancele d [id number] : 2023 0 Pharmac y Data Transac tion Service Facilit y PANTOPRAZOL E SODIUM (PANTOPRAZO LE SODIUM), 40 MG, TABLET DR, ORAL, MYLAN, 90 ea. BOTTLE Active [id number] 4 2023 180 Pharmac y Data Transac tion Service Facilit y PANTOPRAZOL E SODIUM (PANTOPRAZO LE SODIUM), 40 MG, TABLET DR, ORAL, MYLAN, 90 ea. BOTTLE Active [id number] 4 2023 60 Pharmac y Data Transac tion Service Facilit y SULFAMETHOX AZOLE-TRIME THOPRIM (SULFAMETHO XAZOLE/TRIM ETHOPRIM), 800-160MG, TABLET, ORAL, AUROBINDO PHARM, 500 ea. BOTTLE Active [id number] 4 2023 10 Pharmac y Data Transac tion Service Facilit y TAMSULOSIN HCL (TAMSULOSIN HCL), 0.4 MG, CAP.SR 24H, ORAL, ZYDUS PHARMACEU, 100 ea. BOTTLE Active [id number] 4 2023 180 Pharmac y Data Transac tion Service Facilit y TAMSULOSIN HCL 0.4MG CAP TAKE 1 CAPSULE BY MOUTH DAILY ORAL ACTIVE NIELS WAYNE 2011 DARCI VALERA [facility] Immunizations Combined list of available immunizations from the Department of Defense and 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 Immunization Series Date Given Administered By Site Reaction Lot Number CVX Code Drug Custom Decorating Consultant Status Comments Source zoster recombinant 2020 DONG, () Not Given zoster recombina nt [facility] zoster recombinant 2019 OVERHOLT, () Not Given zoster recombina nt [facility] INFLUENZA, UNSPECIFIED FORMULATION 2011 88 complet ed [facility] TD(ADULT) UNSPECIFIED FORMULATION 2011 139 complet ed [employer] Pastuer [id number] [facility] ZOSTER LIVE 2010 121 complet ed [facility] Social History Combined list of available smoking, tobacco, and other social history from Department of Defense and 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 Social History Type Response Date Comment Sourc e Tobacco smoking status NHIS FORMER TOBACCO USER 7Y OR GREATER 12/22/2011 [facility] This section is an empty social history section. DoD
--- OUTSIDE RECORDS SUMMARY | 2024-03-30 14:45 | XMS_ITS | Continuity of Care Document ---
Author Name [facility] Address Unknown Organization Unknown Address Unknown Alerts, Allergies and Adverse Reactions FILTER APPLIED:All Known Active Allergies Substance Reaction Onset Status No Known Allergies ([id number]) Allergic Reaction (Unk nown) Active Procedures FILTER APPLIED:Only known Procedures with Onset Date within the last 5 years Procedure Date Procedure Provider Additiona l Information Status X-RAY EXAM ABDOMEN 2 VIEWS (78380) Completed ROUTINE VENIPUNCTURE (65991) Completed METABOLIC PANEL TOTAL CA (91010) Completed HEPATIC FUNCTION PANEL (28561) Completed EMERGENCY DEPT VISIT LOW MDM (82874) Completed ASSAY OF LIPASE (40173) Completed COMPLETE CBC W/AUTO DIFF WBC (76728) Completed C-REACTIVE PROTEIN (68566) Completed URINE CULTURE/COLONY COUNT (55040) Completed URINALYSIS AUTO W/SCOPE (74391) Completed Encounters FILTER APPLIED:Only known Encounters with Admission Date within the last 5 years Encounter Location Admission Discharge Billing Code Director Of Public Health Attender Outpatient [facility] Amelia Charlton Unknown [facility] ONI JONES Unknown [id number] [id number] SALAS ZUNIGA Emergency [id number] [id number] VITA DING
--- OUTSIDE RECORDS SUMMARY | 2024-03-30 14:45 | XMS_ITS | Clinical Summary ---
Author Organization [employer] [facility] Address [place], [place] [address] Care Team Providers Care Collar Baster Name Role Phone Josias Aden MD Primary Care Provider Nohemi Hobbs RN Unavailable [phone] Tano Escobar MD Unavailable Alivia Zamora MD Unavailable Brittani Bautista MBBS Unavailable [phone] EscEri RN Unavailable Kenya Glez GRAPHIC ART SALES REPRESENTATIVE Unavailable Lety Vargas MD Unavailable [phone] Jesus Frederick PREHEMMER Unavailable [phone] Allergies Active Allergy Reactions Criticality Noted [...] 09/27/2023: Left elbow; Malignant Melanoma: Referral to [facility] [place] - excision with Surgical Oncology Maximum depth [...] Type Department Care Team Description 03/28/2024 Telephone [facility] [address] [place] [address] Kenya Glez, GRAPHIC ART SALES REPRESENTATIVE Appointment 02/16/2024 11:00 AM FILLER IN Office Visit [place] [address] [place] [address] Deacon Arias MD Procedure (CYSTOSCOPY) 02/16/2024 Travel 02/13/2024 11:45 AM FILLER IN Office Visit [facility] [address] [place] [phone] Kenya Glez, GRAPHIC ART SALES REPRESENTATIVE Follow Up 02/13/2024 Telephone [facility] [address] [place] [address] Kenya Glez, GRAPHIC ART SALES REPRESENTATIVE Appointment 02/13/2024 Travel 02/12/2024 9:00 AM FILLER IN Orders Only [facility] [address] [place] [address] Lab, Farm Lab 02/11/2024 Travel 02/08/2024 Travel 02/07/2024 Travel 01/27/2024 Refill [facility] [address] [place] [address] Josias Aden MD Refill Request (Atorvastatin) 01/20/2024 Refill [facility] [address] [place] [address] Josias Aden MD Refill Request (Gabapentin) 01/08/2024 1:00 PM CDT Office Visit [facility] [address] [facility] [address] [place] [address] Mauricio Springer MD Derm Problem (Follow up) [...] = 0.6 oz pur e alcohol) none [facility] Utilities Answer Date Recorded Do you have [...] Comments Blood Pressure 155/72 02/13/2024 11:55 AM FILLER IN Pulse 94 02/16/2024 11:07 AM FILLER IN Temperature 36.4 C (97.6 F) 02/13/2024 11:55 AM FILLER IN Respiratory Rate 17 02/13/2024 11:55 AM FILLER IN Oxygen Saturation 97% 02/16/2024 11:07 AM FILLER IN Inhaled Oxygen Concentration - - Weight 81 kg (178 lb 8 oz) 02/16/2024 11:[address] Height 162.6 cm (5' 4) 11/14/2023 9:29 AM CDT Body Mass Index 30.64 11/14/2023 9:29 AM CDT Plan of Treatment Upcoming Encounters Date Type Department Care Team (Late st Contact Info) Description 04/09/2024 1:10 PM FILLER IN Office Visit [facility] [address] [facility] [address] [place] [address] Alivia Zamora MD [address] [facility] [address] [place] [address] 05/03/2024 7:30 AM FILLER IN Appointment [facility] [address] [place] [address] 05/06/2024 1:45 PM FILLER IN Orders Only [facility] [address] [place] [address] Lab, Farm 05/08/2024 2:00 PM FILLER IN Office Visit [facility] [place] [facility] [address] [facility] [address] [place] [address] Lety Vargas MD [address] [place] [address] Health Maintenance Due Date Last Done Comments [...] history exists Medical Devices Implanted Type Area Ve Teacher Device Identifier Shelf Expiration Date Model / Serial / Lot Stent Uret [id number] P[employer]lex [employer] - [id number] Implanted:Qty : 1 on 10/27/2023 by Deacon Arias MD at [facility] Uro Implants Left: Ureter [facility] Urology 05/10/2026 [id number] / / [id number] Procedures Procedure Name Priority Date/Time Associated Diagnosis Comments CBC WITH AUTO DIFFERENTIAL Routine 02/12/2024 8:58 AM FILLER IN Malignant melanoma, unspecified site (HC) COMP METABOLIC PANEL Routine 02/12/2024 8:58 AM FILLER IN Malignant melanoma, unspecified site (HC) from Last 3 Months Results * CBC AND DIFFERENTIAL (02/12/2024 8:58 AM FILLER IN) WHITE BLOOD CELL COUNT 7.1 3.8 - [...] BLOOD SPECIMEN / Unknown 02/12/2024 8:58 AM FILLER IN 02/12/2024 8:58 AM FILLER IN us Lety Vargas MD HEMATOLOGY Final Resu lt [employer] [facility] [address] [place] [address], [facility] [address] [place] [address] * (ABNORMAL) COMP METABOLIC PANEL (02/12/2024 8:58 AM FILLER IN) GLUCOSE 107(H) 65 - 99 mg/dL [facility] [...] BLOOD SPECIMEN / Unknown 02/12/2024 8:58 AM FILLER IN 02/12/2024 8:58 AM FILLER IN Lety Vargas MD CHEMISTRY Final Resu lt [facility] [address] [place] [address], [place] [phone] [facility] [address] [place] [address] from Last 3 Months Insurance [employer] MEDICARE PART A HB ONLY [facility] Advance Directives Documents on File Type Date Recorded Patient Fluxer Expl anation Healthcare Directive 05/04/2019 020 * Full Code (Latest Code Status on File) Date Activated Date Inactivated Comments 10/27/2023 7:45 AM 10/27/2023 2:37 PM Question Answer Comments Code Status Discussion: Reviewed Preferences * Full Code Date Activated Date Inactivated Comments 10/26/2023 12:13 PM 10/26/2023 7:07 PM Question Answer Comments Code Status Discussion: Reviewed Preferences Care Teams Collar Baster Relationship Specialty [place] [address] [place] [address] PCP - General Family Practice 05/31/23 Nohemi Hobbs, CHRISTI [address] [address] Nurse Navigator - Oncology Registered Nurse 10/03/23 Tano Escobar MD [address] [place] [address] Surgical Oncologist Surgery - Oncology 10/03/23 Alivia Zamora MD [address] [address] Dermatology Dermatology 10/04/23 Brittani Bautista MBBS [address] [place] [address] Cardiovascular Disease 10/12/23 Eri Young RN [address] [place] [address] Nurse Navigator - Oncology Registered Nurse 11/29/23 Kenya Glez GRAPHIC ART SALES REPRESENTATIVE [address] [place] [address] Nurse Practitioner Hematology and Oncology 11/30/23 Lety Vargas MD [address] [place] [address] Medical Oncologist Hematology and Oncology 11/30/23 Shedd, ASHLYN Oconnor [address] [place] [address] Commercial Hvac Service Technician Oncology 02/22/24
== END 2024-03-30 14:56 | disposition home or self-care (01) ==
LOC: ED 14:42
PROVIDERS: Emergency Provider Emergency Medicine Emergency Medical Services; PCP Family Medicine
DX: R04.0 Epistaxis (principal)
CPT/HCPCS: 99283; 99284

== ENCOUNTER 2024-04-20 21:33 | Emergency (ER) | payer MEDICARE, OTHER, SELFPAY ==
--- OUTSIDE RECORDS SUMMARY | 2024-04-20 21:35 | XMS_ITS | Continuity of Care Document ---
Author Organization [facility] Address [address] [address] [place] [address] Phone Care Team Providers Care Patch Driller Name Role Phone Sebastian Silva MD Unavailable Unavailable Allergies, Adverse Reactions, Alerts Substance Reaction Status Criticality No Known Allergies Active No Inform ation Medications Medication Instructions Dosage Effective Dates (start - stop) Status Comments FDgard 25 mg-20.75 mg ORAL CAPSULE 2 capsules by mouth twice per day - Active Lipitor 10 mg tablet take 1 tablet by oral route every day 10 MG - Active Flomax 0.4 mg capsule take 1 capsule by ORAL route every day 0.4 MG - Active sucralfate 1 gram tablet take 1 tablet by oral route at bedtime - No Longer Active rabeprazole 20 mg tablet,delayed release take 1 tablet by ORAL route 2 times every morning 20 MG - No Longer Active Pepcid 20 mg tablet take 1 tablet by oral route 2 times every day 20 MG - No Longer Active famotidine 40 mg tablet take 1Tablet by oral route every day at bedtime - No Longer Active Does not need now, have available if needed. Procedures Procedure Date Telephone E&M II 11-20 Min MD MICKIE Telephone E&M III 21-30 Min MD MICKIE Telephone E&M II 11-20 Min MD MICKIE Colonoscopy Flex; W/remov Les- 19 Level Iv-surg Path Gross/micro 19 Offic/outpt E&m Estab Mod-hi 2 18 Ugi Endo; W/insrt Guide Wire Ugi Endo; W/bx 1/mx Level Iv-surg Path Gross/micro 18 Advance Directives Directive Yes / No Effective Date File Name No Information Encounters Encounter Description Practice Location Reason(s) For Visit Diagnoses Date Provider Providers Copied on Encounter [facility], [address] [address], [place], [id number], [place] tel:[phone] [facility] No Information 1 Ricardo Cortes. [address] [place] [address], [address], [id number], [place]. tel:[phone] Telephone E&M II 11-20 Min MICKIE [facility], [address] [address], [place], [id number], [place] tel:[phone] [facility] GI Symptoms or Concerns (chief complaint) Epigastric discomfort 1 Juanis Wahl. [address], [id number], [place]. tel:[phone] Referring Provider: Referral Self, USE FOR SELF REFERRALS. [facility], [address] [address], [place], [id number], [place] tel:[phone] [facility] No Information 1 Gisell English. [address] [facility], [address], [id number], [place]. tel:[phone] [facility], [address] [address], [place], [id number], [place] tel:[phone] [facility] No Information 1 Ricardo Cortes. [address] [place] [address], [address], [id number], [place]. tel:[phone] [facility], [address] [address], [place], [id number], [place] tel:[phone] [facility] No Information 0 Ricardo Cortes. [address], [id number], [place]. tel:[phone] Telephone E&M III 21-30 Min MICKIE [facility], [address] [address], [place], [id number], [place] tel:[phone] [facility] GI Symptoms or Concerns (chief complaint) Gastro-esophagea l reflux disease without esophagitis 0 Ricardo Cortes. [address] [place] [address], [id number], [place]. tel:[phone] Referring Provider: Referral Self, USE FOR SELF REFERRALS. Telephone E&M II 11-20 Min MICKIE [facility], [address] [address], [place] [facility] [place], [id number], [place] tel:[phone] [facility] GI Symptoms or Concerns (chief complaint) Gastro-esophagea l reflux disease without esophagitis 0 Ricardo Cortes. [address], [id number], [place]. tel:[phone] Referring Provider: Referral Self, USE FOR SELF REFERRALS. [facility], [address] [address], [place], [id number], [place] tel:[phone] [facility] Colorectal polypsDiverticul osis of colonBenign neoplasm of cecumBenign neoplasm of ascending colonBenign neoplasm of descending colonBenign neoplasm of cecumDvrtclos of lg int w/o perforation or abscess w/o bleedingBenign neoplasm of descending colonBenign neoplasm of ascending colon 9 Raghav Wagner. [address], [id number], [place]. tel:[phone] Referring Provider: Kallie Mckinley CNP D, [address] [facility] [place], [address]. tel:[phone] [facility], [address] [address], [place], [place], [id number], [place] tel:[phone] [facility] No Information 9 Gisell English. [address] [facility], [facility] [address], [place], [place], [id number], [place]. tel:[phone] Offic/outpt E&m Estab Mod-hi 2 [facility], [address] [address], [place], [place], [id number], [place] tel:[phone] [facility] GI Symptoms or Concerns (chief complaint) Epigastric painDietary counseling and surveillanceElev ated blood-pressure reading, w/o diagnosis of htn 8 Ricardo Cortes. [address] [facility] [address], [place], [place], [id number], [place]. tel:[phone] Referring Provider: Referral Self, USE FOR SELF REFERRALS. [facility], [address] [address], [place], [place], [id number], [place] tel:[phone] [facility] GERD without esophagitisEsoph ageal strictureGastro- esophageal reflux disease without esophagitisEsoph ageal obstruction 8 No Information Referring Provider: Kallie Mckinley ACETYLENE OPERATOR D, [address] [place], [address]. tel:[phone] Family History Family Member Type Diagnosis Age At Onset Father Problem (finding) Mother Problem (finding) Immunizations Vaccine Date Status Comments SARS-COV-2 (COVID-19) vaccin e, mRNA, spike protein, LNP, preservative free, 30 mcg/0.3mL dose administered Note: [facility] bi-direct ional interface ; Source: Other Registry SARS-COV-2 (COVID-19) vaccin e, mRNA, spike protein, LNP, preservative free, 30 mcg/0.3mL dose administered Note: [facility] bi-direct ional interface ; Source: Other Registry zoster vaccine recombinant administered N ote: [facility] bi-directional interface ; Source: Other Registry zoster vaccine recombinant administered N ote: [facility] bi-directional interface ; Source: Other Registry influenza, seasonal vaccine, quadrivalent, adjuvanted, .5mL dose, preservative free administered Note: [facility] bi-di rectional interface ; Source: Other Registry Seasonal, quadrivalent, recombinant, injectable influenza vaccine, preservative free administered Note: [facility] bi-direct ional interface ; Source: Other Registry Pneumovax 23 administered Note: [facility] bi-d irectional interface ; Source: Other Registry influenza, high dose seasona l, preservative-free administered Note: [facility] bi-direct ional interface ; Source: Other Registry tetanus toxoid, reduced diphtheria toxoid, and acellular pertussis vaccine, adsorbed administered Note: [facility] b i-directional interface ; Source: Other Registry influenza, high dose seasona l, preservative-free administered Note: [facility] bi-direct ional interface ; Source: Other Registry influenza, high dose seasona l, preservative-free administered Note: [facility] bi-direct ional interface ; Source: Other Registry Prevnar 13 administered Note: [facility] bi-d irectional interface ; Source: Other Registry influenza, high dose seasona l, preservative-free administered Note: [facility] bi-direct ional interface ; Source: Other Registry influenza, high dose seasona l, preservative-free administered Note: [facility] bi-direct ional interface ; Source: Other Registry influenza, high dose seasona l, preservative-free administered Note: [facility] bi-direct ional interface ; Source: Other Registry zoster vaccine, live administered Note: [facility] bi-directional interface ; Source: Other Registry influenza, high dose seasona l, preservative-free administered Note: [facility] bi-direct ional interface ; Source: Other Registry Influenza, seasonal, injecta ble, preservative free administered Note: [facility] bi-direct ional interface ; Source: Other Registry Payers Payer name Insurance type Covered green party ID Authoriza tion(s) Medicare NGS MB [id number] [facility] [id number] Social History Type Description Quantity Date Captured Comments Sex Male Smoking Status No Information Chief Complaint And Reason For Visit No Information Reason For Referral Reason For Referral No Information Plan Of Treatment Date Type Action Status Goal Lifestyle education regardin g diet completed History Of Present Illness Encounter Date Complaint History Of Prese nt Illness GI Symptoms or Concerns The dov ent is an 80-year-old male undergoing televisit followup, informed consent obtained from patient, total of 24 minutes spent. The patient is being seen by a group since about 2017 and was given the diagnosis of acid reflux. Since then, he has been tried on multiple different medications including combinations, but continues to have problems. He states in 2018 after his endoscopy, did take Zantac and felt better, but when it was taken off the market, he has been placed on multiple meds. He is now taking sucralfate, Nexium, and rabeprazole. He states he continues to wake up in the morning with some epigastric discomfort which is described as an ache. I questioned multiple times and I did not got a history that he ever had retrosternal burning. In 2018, he had an endoscopy that states there was a benign stricture. A biopsy taken, which revealed normal stomach. He is denying any dysphagia, nausea, vomiting, change in bowel habits, melena, rectal bleeding or weight loss. GI Symptoms or Concerns Mr. Mervin blackburn is having a televisit today to discuss his ongoing problems with reflux. He has found that many antacids taken in the morning worked well to control his acid during the day. However, he keeps getting awakened around 4 or 5 in the morning with reflux. Once he gets up and walks around and sometimes has a snack, he is fine within 5 minutes. However, getting awakened is interrupting his sleep and very frustrating. Zantac or ranitidine used to work really well to control symptoms. Pepcid is not helping. He has tried several different proton-pump inhibitors, both in the morning and in the evening without any success. He has not yet tried Dexilant; it is not covered by his insurance. One other antacid he has not tried is rabeprazole. GI Symptoms or Concerns Mr. Mervin blackburn is having a televisit today to discuss reflux symptoms. He had been doing very well on the combination of pantoprazole in the morning and ranitidine or Zantac at night. When ranitidine was recalled, he started to have more problems. He tried pantoprazole twice daily as well as Pepcid in the morning and pantoprazole at night. Neither seemed to work well. He has had the best success with pantoprazole in the morning and 2 [id number]-vyqwias Pepcid at night. He tends not to have any reflux-type symptoms during the day. They happen about 5 or 6 hours after he goes to bed. When he was taking 1 Pepcid, he could sleep about 5 hours. On the 2nd Pepcid, he got about 6 hours of control. He feels a chest ache. He gets up and then he is instantly fine. This is interfering with his sleep. He quit coffee and orange juice without any change in symptoms. His weight is the same and his other medications are the same. His swallowing is fine. GI Symptoms or Concerns Mr. Mervin blackburn is here at the request of Kallie Mckinley to discuss discomfort and nausea that happens in the middle of the night. For more than a year, he has been having symptoms. About 4 or 5 a.m., he gets a discomfort and unease in his epigastrium. Sometimes, this is associated with him having to get up to urinate. As soon as he gets up, he starts to feel better. Cold water seems to help. He also takes some Tums, though does not know if this is also beneficial. He can usually lie down again for another hour. His symptoms returned and then he gets up for good. Again, when he gets up, he starts feeling better. He is able to eat breakfast and feel good the rest of the day. There is no food that will reproduce his symptoms. It does not seem to matter if he eats closer to going to bed or not. He tries to eat around 5 o'clock. He does not have typical heartburn symptoms. If he lays down in the recliner during the day, the same symptom may happen after a while. Again, getting up and w Functional Status Date Functional Assessmen t No Information Instructions Date Instruction Additional Infor samanta Oct-05-2021 1. I discussed this with patient and answered his questions. As he had been seen by multiple other physicians and just meeting me the first time over the phone, he was a little suspicious of my discussion, but I feel that I explained it adequately.2. We discussed options i.e. stopping all the medications and a trial of FDgard versus objective criteria with a pH probe. After in-depth discussion, he elected to have to stop the 3 medications he is taking, we will give him a trial of FDgard 2 tablets twice a day. The patient will then update us in several weeks on his symptoms. If he does develop classical acid reflux, we will need to go on to PPI therapy. If he has ongoing variable epigastric discomfort, we will once again discuss a pH probe. Related to Epigastric discomfort Diverticulosis/Diverticulitis Re lated to Diverticulosis of colon Colon Polyps Related to Diver ticulosis of colon High Fiber Diet Related to Diver ticulosis of colon Colon Cancer Prevention Related to Diverticulosis of colon Lifestyle education regarding di et Related to Dietary counseling and surveillance Hiatal Hernia Related to Esoph ageal stricture Schatzki's Ring Related to Esoph ageal stricture Assessments Type Assessment Date No Information Patient Care Teams Name Effective Dates (start - stop) Status Members No Information
--- OUTSIDE RECORDS SUMMARY | 2024-04-20 21:35 | XMS_ITS | Clinical Summary ---
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 vertebral artery stenosis 75823914 (SNOMED CT) Active Simone Becerril MD Vertebral artery stenosis Subclavian artery stenosis, left 234577337 (SNOMED CT) Active Simone Becerril MD Subclavian artery stenosis Proximal muscle weakness 266101931 (SNOMED CT) Active Umu Roberto Proximal muscle weakness Facial paresthesia, left 99211110 (SNOMED CT) 05/25 Active 05/27 Simone Becerril MD Facial paresthesia Vertebral basilar insufficiency 09016024 (SNOMED CT) 05/25 Active 05/27 Simone Becerril MD Basilar artery syndrome Vertebral artery stenosis 13197194 (SNOMED CT) 05/25 Removed 05/25 Simone Becerril MD Vertebral artery stenosis BPPV 043622218 (SNOMED CT) 05/25 Active 05/25 Simone Becerril MD Benign paroxysmal positional vertigo Medications Medication Instructions Start Date Stop Date Generic Name NDC Provider PLAVIX 75 MG TABS Take 1 tablet by mouth once a day ; stop aspirin 1 clopidogrel 89496206590 Simone Becerril MD CLOPIDOGREL BISULFATE 75 MG TABS TAKE 1 TABLET BY MOUTH EVERY DAY. STOP ASPIRIN 3 clopidogrel 80161976123 Simone Becerril MD FLOMAX 0.4 MG CAPS tamsulosin 31580579618 Simone Becerril MD LIPITOR 10 MG TABS atorvastatin 09487022342 Simone Becerril MD PANTOPRAZOLE SODIUM 20 MG TBEC pantoprazole 60945885284 Simone Becerril MD GABAPENTIN 600 MG TABS 100 mg bid gabapentin 28832055083 Simone Becerril MD PLAVIX 75 MG TABS Take 1 tablet by mouth once a day ; stop aspirin 1 clopidogrel 84932737662 Simone Becerril MD Medications Administered No information available. Allergies, Adverse Reactions, Alerts Observed no known allergies at Results Date Name Value Unit Range Flag Description Internal Other: Observation data from Authorization.pdf HIECONSENT Y Consent To Release information to the Health Information Exchange ([employer]) Internal Other: Verbal Autho rization/Emergency Contact - OBS VERBAL_EMER DONE Verbal au thorization and emergency contact Replaced Document: (P) CREAT INE KINASE, TOTAL, T4, FREE, TSH, ALDOLASE ALDOLASE * U/L Aldolase [En zymatic activity/volume] in Serum or Plasma TSH 3.11 u[iU]/mL 0.40-4.50 N Thyrotropi n [Units/volume] in Serum or Plasma FRT4 1.2 0.8-1.8 N FREE T4 CPK * U/L Creatine cal se [Enzymatic activity/volume] in Serum or Plasma Office Visit: Office Visit f ax MEDS REVIEW Done Documenta tion of current medications (procedure) Plan of Care Type Date Detail Pending order Follow up with N eurologist or MICKIE Pending order Follow up with N eurologist or MICKIE Pending order Follow up MICKIE Pending order Patient Instruct ions Pending order EMG right lower ext Pending order EMG right upper ext Pending order EMG right upper ext Pending order Physical Therapy Pending order Patient Instruct ions Pending order Follow up Pending order Aldolase Pending order CK (Creatine Kin ase) Total Pending order T4 Free Direct Pending order TSH Pending order CTA-Head W/ Pending order CTA-Neck W/ Pending order Instructions for Staff Pending order Follow up in cli gen or telemedicine with provider or MICKIE Pending order CTA-Head W/ Pending order CTA-Neck W/ Pending order CTA-Neck W/ Pending Order exclud ed from report: Pending order CTA-Head W/ Pending Order exclud ed from report: Pending order Vestibular Thera py Procedures Code Procedure Name Date Entry Date [facility]-[id number] Documentation of current medicatio ns ORDERS Physical Therapy ORDERS CK (Creatine Kinase) Total 2 023 ORDERS T4 Free Direct ORDERS TSH ORDERS Follow up [facility]-[id number] Documentation of current medicatio ns ORDERS Patient Instructions ORDERS CTA-Neck W/ ORDERS CTA-Head W/ ORDERS CTA-Neck W/ ORDERS CTA-Head W/ ORDERS Instructions for Staff 08/25 ORDERS Follow up in clinic or telemedicine with provider or MICKIE [facility]-[id number] Documentation of current medicatio ns ORDERS Vestibular Therapy 1 Vital Signs Date Name Value Unit Description Heart Rate 68 /min pulse rate Immunizations No information available. Advance Directives No information available.
--- OUTSIDE RECORDS SUMMARY | 2024-04-20 21:35 | XMS_ITS | Continuity of Care Document ---
Author Organization [facility] ter Address [address] [place] [address] Phone Care Team Providers Care Director Of Market Intelligence Name Role Phone Unavailable Unavailable Unavailable Allergies, Adverse Reactions, Alerts Substance Reaction Status Criticality No Known allergies Medications Medication Instructions Dosage Effective Dates (start - stop) Status Comments Artificial Tears Eye Drops - Act darío Ipratropium [place] - Active lipitor - Active Tamsulosin - Active aspirin - Active Omeprazole - Active Procedures Procedure Date REFRACTION OFFICE/OUTPATIENT VISIT, [facility] Advance Directives Directive Yes / No Effective Date File Name No Information Encounters Encounter Description Practice Location Reason(s) For Visit Diagnoses Date Provider Providers Copied on Encounter [facility], [address] [place], [id number], [place] tel:[phone] Regular astigmatismPre sbyopia 4 No Information OFFICE/OUTPA TIENT VISIT, [facility], [address] [place], [id number], [place] tel:[phone] Senile nuclear sclerosisTear film insufficiency, unspecifiedVit reous degenerationVi treous degenerationSe nile nuclear sclerosisTear film insufficiency, unspecifiedDru sen (degenerative) of retina 4 No Information Family History Family Member Type Diagnosis Age At Onset Problem (finding) No known family hx Payers Payer name Insurance type Covered republican ID Authoriza tion(s) Medicare [place] [id number] For Life [facility] [id number] Social History Type Description Quantity Date Captured Comments Alcohol Use Details Caffeine Use Details 2 cups per day Tobacco Use Status No Information Smoking Status Former smoker Sex Male Chief Complaint And Reason For Visit No Information Reason For Referral Reason For Referral No Information History Of Present Illness Encounter Date Complaint History Of Prese nt Illness No Information Functional Status Date Functional Assessmen t No Information Instructions Date Instruction Additional Infor samanta - same as above Related to Presb yopia - Return in 1 year w /Dr. 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 New gls rx released today. 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 Related to Presbyopia - Return in 1 year w breanna Vital, OD for Dilated Exam. Related to Drusen - Return in 1 year w breanna Vital, OD for Dilated Exam. Refract/PRN Related to Cataract, Nuclear Sclerosis Drusen OD - Discusse d diagnosis in detail with patient. Discussed risks and benefits and patient understands. No treatment is required at this time. Pt ed provided. Related to Drusen Dry Eye Syndrome OU - Discussed cond w/pt. There are no objective signs or evidence of permanent corneal damage. Suggested artificial tears for comfort. Pt ed provided. Recommend Refresh Liquigel QHS/OU and Refresh Advanced Qam/OU (samples given) Related to Dry Eye Syndrome Vitreous Detachment OU - There is no evidence of retinal pathology. All signs and risks of retinal detachment and tears were discussed in detail. Patient instructed to call the office immediately if any symptoms noted. Recommend the patient return to office for follow up. Pt ed provided Related to Vitreous Detachment - Return in 1 year w /Dr. Vital for DFE-(S) Related to Vitreous Detachment - Return in PRN Related to Dry E ye Syndrome Cataract, Nuclear Sc lerosis OU - Cataracts account for the patient's complaints. No treatment currently recommended. The patient will monitor vision changes and contact us with any decrease in vision. Pt ed provided Related to Cataract, Nuclear Sclerosis Assessments Type Assessment Date No Information Patient Care Teams Name Effective Dates (start - stop) Status Members No Information
--- OUTSIDE RECORDS SUMMARY | 2024-04-20 21:35 | XMS_ITS | Clinical Summary ---
Author Organization [facility] Address [place], [place] [address] Care Team Providers Care Lead Ingot Molder Name Role Phone Josias Aden MD Primary Care Provider Nohemi Hobbs RN Unavailable Tano Escobar MD Unavailable Alivia Zamora MD Unavailable Brittani Bautista MBBS Unavailable [phone] EschEri RN Unavailable Kenya Glez PAPER CUTTER Unavailable Lety Vargas MD Unavailable Jesus Frederick HOMICIDE DETECTIVE Unavailable [phone] Allergies Active Allergy Reactions Criticality Noted Date Comments Hydrocodone-Acetamin ophen Hallucinations,Other - Describe In Comment Field Unknown 01/01/2013 Lots of noise in head Medications fexofenadine (Pam Allergy) 180 mg tablet 2 Active tamsulosin (FLOMAX) 0.4 mg capsuleIndicatio ns:benign prostatic hyperplasia with lower urinary tract sx Take 2 Capsules (0.8 mg) by mouth at bedtime. 180 Capsule 2 4 Active BABY ASPIRIN ORAL Take by mouth. Active pantoprazole (PROTONIX) 40 mg delayed-release tabletIndication s:Abdominal pain, LUQ (left upper quadrant),Chroni c GERD Take 1 Tablet (40 mg) by mouth two times daily before meals. 180 Tablet 3 5 Active finasteride (PROSCAR) 5 mg tabletIndication s:BPH without urinary obstruction Take 1 Tablet (5 mg) by mouth once daily in the morning. 90 Tablet 5 Active atorvastatin (LIPITOR) 10 mg tabletIndication s:Hypercholester olemia Take 1 Tablet (10 mg) by mouth at bedtime. 90 Tablet 5 Active gabapentin (NEURONTIN) 300 mg capsuleIndicatio ns:Abdominal pain, LUQ (left upper quadrant),Chroni c abdominal pain Take 1 Capsule (300 mg) by mouth once daily. 90 Capsule 3 5 Active lisinopriL (PRINIVIL; ZESTRIL) 20 mg tabletIndication s:Essential hypertension Take 1 Tablet (20 mg) by mouth once daily. 90 Tablet 5 Active escitalopram oxalate (LEXAPRO) 10 mg tabletIndication s:Depression, recurrent (HC) Take 1 Tablet (10 mg) by mouth once daily in the morning. 30 Tablet 5 Active pantoprazole (PROTONIX) 40 mg delayed-release tabletIndication s:Abdominal pain, LUQ (left upper quadrant),Chroni c GERD Take 1 Tablet (40 mg) by mouth two times daily before meals. 180 Tablet 3 04/09/19 25 Discontinu ed(Reorder (E-cancel not sent)) finasteride (PROSCAR) 5 mg tabletIndication s:BPH without urinary obstruction Take 1 Tablet (5 mg) by mouth once daily in the morning. 90 Tablet 1 4 04/09/19 25 Discontinu ed(Reorder (E-cancel not sent)) lisinopriL (PRINIVIL; ZESTRIL) 10 mg tabletIndication s:Essential hypertension Take 1 Tablet (10 mg) by mouth once daily. 30 Tablet 11 4 04/09/19 25 Discontinu ed(*Medica tion adjustment ) gabapentin (NEURONTIN) 300 mg capsuleIndicatio ns:Abdominal pain, LUQ (left upper quadrant),Chroni c abdominal pain TAKE 1 CAPSULE(300 MG) BY MOUTH EVERY DAY 90 Capsule 2 4 01/14/20 25 Discontinu ed(Reorder (E-cancel not sent)) atorvastatin (LIPITOR) 10 mg tabletIndication s:Hypercholester olemia Take 1 Tablet (10 mg) by mouth at bedtime. 90 Tablet 2 4 04/09/19 25 Discontinu ed(Reorder (E-cancel not sent)) Active Problems Problem Noted Date Diagnosed Date Frequent urination at night 04/09/2024 Epistaxis, recurrent 04/09/2024 BPH without urinary obstruction 04/09/2024 Chronic GERD 04/09/2024 Depression, recurrent 10/24/2023 Skin cancer 10/04/2023 Overview (11/20/2023): 09/27/2023: Right posterior ear: Basal cell carcinoma, nodular type: Mohshabbir Springer 11/20/23 Melanoma 10/04/2023 Cancer Staging:Clinical stage from 10/10/2023:Stage IIA(cT2b, cN0, cM0) - Signed by Tano Escobar MD on 10/12/2023 Pathologic stage from 10/26/2023:Stage IIB(pT3b, pN0, cM0) - Signed by Tano Escobar MD on 11/06/2023 Overview (12/27/2023): 09/27/2023: Left elbow; Malignant Melanoma: Referral to [facility] [place] - excision with Surgical Oncology Maximum depth [...] renal pelvis 06/16/2021 06/16/2021 Anterior epistaxis 01/21/2021 Encounters Date Type Department Care Team Description 04/18/2024 Travel 04/15/2024 Telephone [facility] [address] [place] [address] Jasmin Chowdary MD Results 04/09/2024 1:10 PM ELECTRIC SWITCH REPAIRER Office Visit [facility] [address] [facility] [address] [place] [address] Alivia Zamora MD Derm Problem (FBSE) 04/09/2024 8:45 AM ELECTRIC SWITCH REPAIRER Office Visit [facility] [address] [place] [address] Josias Aden MD Medicare ANNUAL (subsequent) Visit (Patient has been having nose bleeds) 04/09/2024 Travel 04/07/2024 Travel 03/28/2024 Telephone [facility] [address] [place] [address] Kenya Glez NP Appointment 02/16/2024 11:00 AM ELECTRIC SWITCH REPAIRER [place] [facility] [address] [place] [address] Deacon Arias MD Procedure (CYSTOSCOPY) 02/16/2024 Travel 02/13/2024 11:45 AM ELECTRIC SWITCH REPAIRER Office Visit [facility] [address] [place] [address] Kenya Glez, PAPER CUTTER Follow Up 02/13/2024 Telephone [facility] [address] [facility] [place] [address] Kenya Glez, PAPER CUTTER Appointment 02/13/2024 Travel 02/12/2024 9:00 AM ELECTRIC SWITCH REPAIRER Orders Only [facility] [address] [place] [address] Lab, Farm Lab 02/11/2024 Travel 02/08/2024 Travel 02/07/2024 Travel 01/27/[address] [address] Josias Aden MD Refill Request (Atorvastatin) 01/20/[address] [address] Josias Aden MD Refill Request (Gabapentin) from Last 3 Months Immunizations Name Administration [...] Smoking Tobacco: Former Cigarettes 0.5 33 1 [phone] - [phone] Passive Smoke Exposure: Past Smokeless Tobacco: Never Tobacco Cessation:Counseling Given: Not Answered Comments:30 years ago Alcohol Use Standard Drinks/Week Comments Never 0 (1 standard drink = 0.6 oz pur e alcohol) none PHQ-2 Answer Date Recorded PHQ-2 TOTAL SCORE 3 04/09/2024 Social Connections Answer Date Recorded Do you [...] Ambulatory Vulnerability No t on file 11/02/2023 Utilities Answer Date Recorded Do you have trouble paying f or utilities (for example, heat, electricity, water, phone)? 1 04/20/2023 Sex and Gender Information Value Date Recorded Sex Assigned at Male 10/10/2020 11:22 AM CDT Legal Sex Male 1:51 PM CDT Gender Identity Male 10/10/2020 11:22 AM CDT Sexual Orientation Not on file Obstetrics History Last Filed Vital Signs Vital Sign Reading Time Taken Comments Blood Pressure 144/80 04/09/2024 8:53 AM ELECTRIC SWITCH REPAIRER Pulse 80 04/09/2024 8:53 AM ELECTRIC SWITCH REPAIRER Temperature 36.4 C (97.6 F) 02/13/2024 11:55 AM ELECTRIC SWITCH REPAIRER Respiratory Rate 17 02/13/2024 11:55 AM ELECTRIC SWITCH REPAIRER Oxygen Saturation 97% 02/16/2024 11:07 AM ELECTRIC SWITCH REPAIRER Inhaled Oxygen Concentration - - Weight 79.4 kg (175 lb) 04/09/2024 8:53 AM ELECTRIC SWITCH REPAIRER Height 168.3 cm (5' 6.25) 04/09/2024 8:53 AM CS T Body Mass Index 28.03 04/09/2024 8:53 AM ELECTRIC SWITCH REPAIRER Plan of Treatment Upcoming Encounters Date Type Department Care Team (Late st Contact Info) Description 04/23/2024 10:25 AM ELECTRIC SWITCH REPAIRER Office Visit [facility] [address] [place] [address] [place] [address] [place] [address] 05/03/2024 7:30 AM ELECTRIC SWITCH REPAIRER Appointment [facility] [address] [place] [address] 05/06/2024 1:45 PM ELECTRIC SWITCH REPAIRER Orders Only [facility] [address] [place] [address] Lab, Farm 05/08/2024 2:00 PM ELECTRIC SWITCH REPAIRER Office Visit [address] [place] [address] Lety Vargas MD [address] [place] [address] [place] [address] 07/08/2024 1:15 PM CDT Office Visit [facility] [address] [address] [place] [address] [place], [place] [id number] Health Maintenance Due Date Last Done Comments RSV vaccine for adults or (1 - 1-dose 75+ series) 2014 COVID-19 vaccine series ( season) 2024 12/25/2023, 01/25/2023, 10/13/2022, Additional history exists BMI (ht and wt on same day) for age 18+ 04/09/2025 04/09/2024, 11/14/2023, 11/07/2023, Additional history exists Depression screening for age 12+ 04/09/2025 04/09/2024, 04/09/2024, 11/03/2023, Additional history exists Medicare Wellness for age 65+ 04/10/2025, 04/24/2023, 02/23/2022, Additional history exists Tetanus booster 01/09/2027 01/09/2017, 12/22/2011 Tdap Completed 01/09/2017 Pneumococcal series for age 50+ Completed 8, 01/06/2015 Zoster (shingles) series for age 50+ Completed 04/05/2020, 02/05/2020, 01/03/2011, Additional history exists Influenza for age 65+ Completed 12/25/2023 , 04/24/2023, 01/25/2023, Additional history exists Medical Devices Implanted Type Area [employer] Artillery Officer Device Identifier Shelf Expiration Date Model / Serial / Lot Stent Uret [id number] Percuflex Hydroplus - [id number] Implanted:Qty : 1 on 10/27/2023 by Deacon Arias MD at [facility] Uro Implants Left: Ureter [facility] 05/10/2026 [id number] / / [id number] Procedures Procedure Name Priority Date/Time Associated Diagnosis Comments PATH TISSUE EXAM Routine 04/09/2024 1:15 PM ELECTRIC SWITCH REPAIRER Neoplasm of uncertain behavior of skin CBC WITH AUTO DIFFERENTIAL Routine 02/12/2024 8:58 AM ELECTRIC SWITCH REPAIRER Malignant melanoma, unspecified site (HC) COMP METABOLIC PANEL Routine 02/12/2024 8:58 AM ELECTRIC SWITCH REPAIRER Malignant melanoma, unspecified site (HC) from Last 3 Months Results * PATH TISSUE EXAM (04/09/2024 1:15 PM ELECTRIC SWITCH REPAIRER) Case Report Pathology Report Case: [id number] Authorizing Provider: Alivia Zamora MD Collected: 04/09/2024 1315 Ordering Location: [facility] Received: 04/09/[address] [place] [address] Pathologist: Enoch Gerard MD Specimen: Skin, left lateral upper arm 04/12/2024 4:24 PM ELECTRIC SWITCH REPAIRER [facility] Final Diagnosis A) SKIN, LEFT LATERAL UPPER ARM, BIOPSY: 1. Lentiginous compound nevus with moderate atypia and associated dermal fibrosis, consistent with prior trauma a. Margin status: Positive (peripheral) 2. No evidence of malignancy 04/12/2024 4:24 PM [facility] Comment A) Incomplete sampling of melanocytic proliferations may impair accurate diagnosis. Clinical correlation with the overall size of the lesion, and presence of remaining or recurring pigment, is required for optimal treatment. 04/12/2024 4:24 PM [facility] Clinical Information A) brown macule with irregular juarez pigment, adjacent but clearly separate from melanoma excision scar. favor traumatized nevus, r/o malignancy 04/12/2024 4:24 PM [facility] Gross Description A) Received in formalin, labeled with the patient's name and left lateral upper arm, is a 0.8 x 0.6 cm skin biopsy. There is a 0.5 x 0.3 cm flat brown-black lesion. The specimen is inked red, trisected and entirely submitted in one cassette. SJM 04/10/2024 04/12/2024 4:24 PM ELECTRIC SWITCH REPAIRER [facility] Microscopic Description The final diagnosis is based on microscopic examination of appropriate sections of all specimens. A) There is a lentiginous but fairly well circumscribed proliferation of mild to moderately atypical melanocytes present along the dermal-epidermal junction. Atypical melanocytes are present between adjacent rete. No significant upward migration is seen. The dermal melanocytic component lacks significant cytologic atypia and shows evidence of maturation. The presence of red ink is confirmed on tissue sections. 04/12/2024 4:24 PM ELECTRIC SWITCH REPAIRER [facility] [employer] [facility] Additional Information Interpreted at [facility] - [address] [facility] [address], [place] [address] 04/12/2024 4:24 PM ELECTRIC SWITCH REPAIRER [facility] Other SPECIMEN FROM SKIN / Unknown Non-Blood / Unknown 04/09/2024 1:15 PM ELECTRIC SWITCH REPAIRER 04/09/2024 3:31 PM ELECTRIC SWITCH REPAIRER Alivia Zamora MD PATHOLOGY/CYTOLOGY Final Result [facility] [address] [place] [address], * CBC AND DIFFERENTIAL (02/12/2024 8:58 AM ELECTRIC SWITCH REPAIRER) WHITE BLOOD CELL COUNT 7.1 3.8 - 10.8 Thousand/u L [facility] RED BLOOD CELL COUNT 4.32 [...] BLOOD SPECIMEN / Unknown 02/12/2024 8:58 AM ELECTRIC SWITCH REPAIRER 02/12/2024 8:58 AM ELECTRIC SWITCH REPAIRER us Lety Vargas MD HEMATOLOGY Final Resu lt [facility] [address] [place] [address], [facility] [address] * (ABNORMAL) COMP METABOLIC PANEL (02/12/2024 8:58 AM ELECTRIC SWITCH REPAIRER) GLUCOSE 107(H) 65 - 99 mg/dL [facility] Comment: Fasting reference interval For someone without known diabetes, a glucose value between 100 and 125 mg/dL is consistent with prediabetes and should be confirmed with a follow-up test. UREA NITROGEN (BUN) 21 7 - 25 mg/dL [facility] CREATININE 1.45(H) 0.70 - 1.22 mg/dL [facility] EGFR 48(L) > OR = [...] BLOOD SPECIMEN / Unknown 02/12/2024 8:58 AM ELECTRIC SWITCH REPAIRER 02/12/2024 8:58 AM ELECTRIC SWITCH REPAIRER us Lety Vargas MD CHEMISTRY Final Resu lt [facility] [address] [place] [address], [place] [phone] [facility] [address] [place] [address] from Last 3 Months Insurance [facility] [employer] LIFE MEDICARE PART A HB ONLY [facility] MR/MSHO Advance Directives Documents on File Type Date Recorded Patient Glazier Supervisor Expl anation Healthcare Directive 05/04/2019 020 * Full Code (Latest Code Status on File) Date Activated Date Inactivated Comments 10/27/2023 7:45 AM 10/27/2023 2:37 PM Question Answer Comments Code Status Discussion: Reviewed Preferences * Full Code Date Activated Date Inactivated Comments 10/26/2023 12:13 PM 10/26/2023 7:07 PM Question Answer Comments Code Status Discussion: Reviewed Preferences Care Teams Lead Ingot Molder Relationship Specialty [place] [address] [place] [address] PCP - General Family Practice 05/31/23 Nohemi Hobbs, RN [address] [place] [address] [address] [place] [address] Nurse Navigator - Oncology Registered Nurse 10/03/23 Tano Escobar MD [address] [place] [address] Surgical Oncologist Surgery - Oncology 10/03/23 Alivia Zamora MD [address] [facility] [address] [place] [address] Dermatology Dermatology 10/04/23 Brittani Bautista MBBS [address] [place] [address] Cardiovascular Disease 10/12/23 [facility] [address] [place] [address] Nurse Navigator - Oncology Registered Nurse 11/29/23 Kenya Glez, PAPER CUTTER [address] [place] [address] Nurse Practitioner Hematology and Oncology 11/30/23 Lety Vargas MD [address] [place] [address] Medical Oncologist Hematology and Oncology 11/30/23 Jesus Frederick LSW [address] [place], [place] [id number] Hand Tennis Ball Coverer Oncology 02/22/24
[2024-04-20 21:40] VITALS: BP 163/96; PULSE 103; RESP 16; TEMP 36.9; O2SAT 95; BMI 27.4
--- NOTE | 2024-04-20 21:47 | ED_ITS ---
History of Present Illness General Time Seen by Provider: 21:47 Date Seen: 04/20/24 Chief Complaint: Epistaxis/Nosebleed Stated Complaint: nosebleed Time Seen by Provider: 04/20/24 21:47 Source: patient, EMS and RN notes reviewed Mode of arrival: ambulatory Limitations: no limitations History of Present Illness HPI Narrative: 84-year-old male who presents today with nose bleed, has a history of recurrent nose bleeds. Patient noted bleeding from the right nostril starting about 8:00 p.m., has been unable to get it stopped. Notes that he takes an aspirin daily, no trauma, does say he is battling a ?head cold. ? Denies nausea vomiting. Related Data Home Medications ?Medication ?Instructions ?Recorded ?Confirmed atorvastatin 10 mg tablet 10 mg PO HS 10/12/21 03/30/24 fexofenadine 60 mg tablet (Pam 60 mg PO Q12H 10/12/21 06/10/22 Allergy) finasteride 5 mg tablet 5 mg PO DAILY 10/12/21 03/30/24 tamsulosin 0.4 mg capsule 0.4 mg PO DAILY 10/12/21 03/30/24 pantoprazole 40 mg tablet,delayed 40 mg PO BID 12/29/21 03/30/24 release acetaminophen 500 mg oral powder 500 mg PO Q6H PRN 06/16/22 06/16/22 packet (Tylenol Extra Strength) clopidogrel 75 mg tablet (Plavix) 75 mg PO QDAY 06/16/22 06/16/22 escitalopram oxalate 5 mg tablet 5 mg PO DAILY 03/30/24 03/30/24 gabapentin 300 mg capsule 300 mg PO DAILY 03/30/24 03/30/24 lisinopril 10 mg tablet 10 mg PO DAILY 03/30/24 03/30/24 Allergies Allergy/AdvReac Type Severity Reaction Status Date / Time hydrocodone (From Vicodin) Allergy Verified 06/16/22 12:58 PFSH PFS Medical History Hypertrophy of prostate without urinary obstruction ?N40.0 - Benign prostatic hyperplasia without lower urinary tract symptoms (ICD-10) Stage 3 chronic kidney disease ?N18.30 - Chronic kidney disease, stage 3 unspecified (ICD-10) Hypertension ?I10 - Essential (primary) hypertension (ICD-10) Ventral hernia ?K43.9 - Ventral hernia without obstruction or gangrene (ICD-10) Elevated cholesterol ?E78.00 - Pure hypercholesterolemia, unspecified (ICD-10) Arthritis ?M19.90 - Unspecified osteoarthritis, unspecified site (ICD-10) Acid reflux ?K21.9 - Gastro-esophageal reflux disease without esophagitis (ICD-10) Anterior epistaxis ?R04.0 - Epistaxis (ICD-10) Surgical History 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) ?Z96.612 - Presence of left artificial shoulder joint (ICD-10) History of incisional hernia repair ?Z98.890 - Other specified postprocedural states (ICD-10) ?Z87.19 - Personal history of other diseases of the digestive system (ICD-10) History of appendectomy ?Z90.49 - Acquired absence of other specified parts of digestive tract (ICD- 10) History of bowel resection ?Z90.49 - Acquired absence of other specified parts of digestive tract (ICD- 10) Hx laparoscopic cholecystectomy ?Z90.49 - Acquired absence of other specified parts of digestive tract (ICD- 10) History of right nephrectomy ?Z90.5 - Acquired absence of kidney (ICD-10) History of revision of total replacement of right hip joint ?Z96.641 - Presence of right artificial hip joint (ICD-10) History of left hip replacement ?Z96.642 - Presence of left artificial hip joint (ICD-10) History of right hip replacement ?Z96.641 - Presence of right artificial hip joint (ICD-10) Family History Father CHF (congestive heart failure) Mother COPD (chronic obstructive pulmonary disease) Sister Congenital hip deformity Social History Narrative: -Michelle Smoking Status: Former smoker Do you use any of these nicotine containing products: None Second hand tobacco smoke exposure: No How often do you have a drink containing alcohol: monthly or less Alcohol type: beer How many standard drinks containing alcohol do you have on a typical day: 1 or 2 How often do you have six or more drinks on one occasion: Never AUDIT-C Alcohol total score: 1 Non-prescribed substance use: denies use Caffeine: No Exam Narrative: Exam Narrative: General: well nourished , NAD Head: Atraumatic and normocephalic ENT: Nasal clamp in place on the nose. When this removed, brisk bleeding from the right nostril. Eyes: Conjunctiva clear, pupils are equal reactive, external ocular motions are intact Neck: Full spontaneous range of motion of the neck Lungs: No respiratory distress Musculoskeletal: No tenderness or deformity Neurologic: No gross focal neurologic deficits Skin: No rashes Psych: Mood and affect are appropriate Const: Vital Signs, click to edit/add: Vital Signs - 24 hr 04/20/24 21:40 04/20/24 22:54 Temperature 98.5 F Pulse Rate [Pulse Oximeter] 103 H 112 H Respiratory Rate 16 20 Blood Pressure [Le ft Upper Arm] 163/96 H 136/74 Pulse Oximetry 95 95 Oxygen Delivery Me thod Room Air Course Course ED Course: Reviewed prior emergency department visit from March 30 when patient was seen and the nose bleed, that time bleeding had stopped prior to evaluation and patient was discharged with nasal clamp. Patient seen and examined, presents with a nose bleed from the right nostril, history of recurrent nose bleeds but has not been able to get this on to stop. On initial exam, tachycardic but otherwise finally stable. Nasal clamp removed and brisk bleeding from the right nostril. This was packed. CBC ordered to evaluate for anemia due to bleeding or thrombocytopenia contributing bleeding. Reevaluation(s) Time of Reevaluation #1: 22:28 Reevaluation #1: Nasal packing removed, still brisk bleeding from the right nostril. Did attempt silver nitrate cautery but continued bleeding likely due inability to create an adequately dry surface for chemical cauterization. Rhino rocket 7.5 cm placed and inflated, and this did improve bleeding anteriorly. Will continue to monitor closely, labs are pending. Time of Reevaluation #2: 23:29 Reevaluation #2: Labs ordered and independently interpreted by me with white blood cell count slightly elevated 12.6, hemoglobin 12.6 also which is down from patient's usual baseline around 14 although most recent in our system was almost a year ago, review of [facility] records shows hemoglobin was 13.2 in January 2024. Platelets 179. Patient rechecked, no bleeding anteriorly, patient still feels like he has got some clot in the back of the throat but improved. Patient remains normotensive but tachycardic. Patient is quite concerned that he still having a little dripping around the rhino rocket feels like his clot in the back of his throat, no breathing difficulty. Due to patient concern, TXA in the emergency department, no history of blood clots, stroke, myocardial infarction, or hypercoagulable state. Recheck hemoglobin prior to discharge make sure this stable. Patient given a dose of Augmentin in the emergency department and discharged with same. Time of Reevaluation #3: 00:47 Reevaluation #3: Repeat hemoglobin is 12, still with trace blood from the into urinary but no other bleeding, patient is stable for discharge. Vital Signs Vital signs: Initial Vital Signs Temperature 98.5 F 04/20/24 21:40 Temperature Source Temporal Artery Scan 04/20/24 21:40 Pulse Rate 103 H 04/20/24 21:40 Respiratory Rate 16 04/20/24 21:40 Blood Pressure 163/96 H 04/20/24 21:40 Blood Pressure Mean 118 H 04/20/24 21:40 Blood Pressure Position Sitting 04/20/24 21:40 Pulse Oximetry 95 04/20/24 21:40 Oxygen Delivery Method Room Air 04/20/24 21:40 Vital Signs Temperature 98.5 F 04/20/24 21:40 Pulse Rate 103 H 04/20/24 21:40 Respiratory Rate 16 04/20/24 21:40 Blood Pressure 163/96 H 04/20/24 21:40 Pulse Oximetry 95 04/20/24 21:40 Oxygen Delivery Method Room Air 04/20/24 21:40 Temperature 98.5 F 04/20/24 21:40 Pulse Rate 112 H 04/20/24 22:54 Respiratory Rate 20 04/20/24 22:54 Blood Pressure 136/74 04/20/24 22:54 Pulse Oximetry 95 04/20/24 22:54 Oxygen Delivery Method Room Air 04/20/24 21:40 Medications Administered Medications: Generic Name Dose Route Start Last Admin Trade Name Freq PRN Reason Stop Dose Admin Tranexamic Acid 1,000 mg/ 110 mls @ 440 mls/hr 04/20/24 23:35 04/20/24 23:49 Sodium Chloride IVPB 04/20/24 23:36 440 mls/hr ONCE ONE Administration MDM - Epistaxis Lab Data Labs: Lab Results 04/20/24 04/21/24 Range/Units 22:07 00:30 WBC 12.61 H (4.50-11.00) K/uL RBC 4.13 L (4.30-5.90) m/uL Hgb 12.6 L 12.0 L (13.5-17.5) gm/dL Hct 36.7 L (37.0-53.0) % MCV 89 (80-100) fL MCH 31 (26-34) pg MCHC 34 (32-36) gm/dL RDW Coeff of Franklin 12.4 (11.5-15.5) % Plt Count 179 (140-440) K/uL Neut % (Auto) 81.9 H (42.0-72.0) % Lymph % (Auto) 9.0 L (20-44) % Antelope % (Auto) 7.0 (0.0-11.0) % Eos % (Auto) 0.8 (0.0-7.0) % Baso % (Auto) 0.6 (0.0-3.0) % Neut # (Auto) 10.30 H (1.7-7.0) K/uL Lymph # (Auto) 1.10 (0.90-2.90) K/uL Antelope # (Auto) 0.90 (0.00-0.90) K/UL Eos # (Auto) 0.10 (0.00-0.50) K/uL Baso # (Auto) 0.10 (0.00-0.30) K/uL Abs Immat Gran (auto) 0.10 (0.00-0.30) K/uL Imm/Tot Granulo (auto) 0.7 % Discharge Plan Discharge Clinical Impression: Stage 3 chronic kidney disease, Epistaxis Patient Disposition: Home, Self-Care Instructions: Nosebleed (ED) Additional Instructions: Leave nasal packing in place until you follow-up with ENT. If the nasal packing falls out, do not attempt to replace it. You may have a small amount of bleeding around the nasal packing, this is normal and should improve. Take Augmentin as prescribed Follow-up with Dr. Mega Shelley, ENT in 5-7 days. Call [phone] for an appointment in [place] or for an appointment in [place] Prescriptions: No Action atorvastatin 10 mg tablet 10 mg PO HS tamsulosin 0.4 mg capsule 0.4 mg PO DAILY finasteride 5 mg tablet 5 mg PO DAILY fexofenadine [Pam Allergy] 60 mg tablet 60 mg PO Q12H Tylenol Extra Strength 500 mg powder in packet 500 mg PO Q6H PRN clopidogrel [Plavix] 75 mg tablet 75 mg PO QDAY pantoprazole 40 mg tablet,delayed release (DR/EC) 40 mg PO BID Patient Comments: TAKE 1 TABLET BY MOUTH TWICE DAILY BEFORE MEALS lisinopril 10 mg tablet 10 mg PO DAILY gabapentin 300 mg capsule 300 mg PO DAILY escitalopram oxalate 5 mg tablet 5 mg PO DAILY Follow Up/Referrals: Josias Aden MD [Primary Care Provider] - Stand Alone Forms: [facility] Info Instructions Procedures Epistaxis Control Time Out Performed: Yes Nostril: Yes right Nose prepped with: Yes lidocaine and Yes phenylephrine Direct inspection method: Yes otoscope Clots removed by: Yes blowing nose Epistaxis treatment: Yes silver nitrate cautery and Yes nasal tampon Results of treatment: Yes treatment well tolerated
--- OUTSIDE RECORDS SUMMARY | 2024-04-20 22:43 | XMS_ITS | Continuity of Care Document ---
Author Organization [facility] ter Address [address] [place] [address] Phone Care Team Providers Care Risk Consultant Name Role Phone Unavailable Unavailable Unavailable Allergies, Adverse Reactions, Alerts Substance Reaction Status Criticality No Known allergies Medications Medication Instructions Dosage Effective Dates (start - stop) Status Comments Artificial Tears Eye Drops - Act darío Ipratropium [place] - Active lipitor - Active Tamsulosin - Active aspirin - Active Omeprazole - Active Procedures Procedure Date REFRACTION OFFICE/OUTPATIENT VISIT, [facility] Advance Directives Directive Yes / No Effective Date File Name No Information Encounters Encounter Description Practice Location Reason(s) For Visit Diagnoses Date Provider Providers Copied on Encounter [facility] [place] [facility] [place], [address] [place], [id number], [place] tel:[phone] [address] [place] Regular astigmatismPre sbyopia 4 No Information OFFICE/OUTPA TIENT VISIT, [facility], [address] [place], [id number], [place] tel:[phone] [address] Senile nuclear sclerosisTear film insufficiency, unspecifiedVit reous degenerationVi treous degenerationSe nile nuclear sclerosisTear film insufficiency, unspecifiedDru sen (degenerative) of retina 4 No Information Family History Family Member Type Diagnosis Age At Onset Problem (finding) No known family hx Payers Payer name Insurance type Covered republican ID Authoriza tion(s) Medicare [place] [id number] For Life [facility] [id number] Social History Type Description Quantity Date Captured [...]
--- OUTSIDE RECORDS SUMMARY | 2024-04-20 22:43 | XMS_ITS | Continuity of Care Document ---
Author Organization [facility] Address [address] [address] [place] [address] Phone Care Team Providers Care Medical Appointment Clerk Name Role Phone Sebastian Silva MD Unavailable [...] Diagnoses Date Provider Providers Copied on Encounter [facility], [address] [address], [place], [id number], [place] tel:[phone] [facility] No Information 1 Ricardo Cortes. [address] [place] [address], [address], [id number], [place]. tel:[phone] Telephone E&M II 11-20 Min MICKIE [facility], [address] [address], [place], [id number], [place] tel:[phone] [facility] GI Symptoms or Concerns (chief complaint) Epigastric discomfort 1 Juanis Wahl. [address], [id number], [place]. tel:[phone] Referring Provider: Referral Self, USE FOR SELF REFERRALS. [facility], [address] [address], [place], [id number], [place] tel:[phone] [facility] No Information 1 Gisell English. [address] [facility], [address], [id number], [place]. tel:[phone] [facility], [address] [address], [place], [id number], [place] tel:[phone] [facility] No Information 1 Ricardo Cortes. [address] [place] [address], [address], [id number], [place]. tel:[phone] [facility], [address] [address], [place], [id number], [place] tel:[phone] [facility] No Information 0 Ricardo Cortes. [address], [id number], [place]. tel:[phone] Telephone E&M III 21-30 Min MICKIE [facility], [address] [address], [place], [id number], [place] tel:[phone] [facility] GI Symptoms or Concerns (chief complaint) Gastro-esophagea l reflux disease without esophagitis 0 Ricardo Cortes. [address] [place] [address], [id number], [place]. tel:[phone] Referring Provider: Referral Self, USE FOR SELF REFERRALS. Telephone E&M II 11-20 Min MICKIE [facility], [address] [address], [place], [id number], [place] tel:[phone] [facility] GI Symptoms or Concerns (chief complaint) Gastro-esophagea l reflux disease without esophagitis 0 Ricardo Cortes. [address], [id number], [place]. tel:[phone] Referring Provider: Referral Self, USE FOR SELF REFERRALS. [facility], [address] [address], [place], [id number], [place] tel:[phone] [facility] Colorectal polypsDiverticul osis of colonBenign neoplasm of cecumBenign neoplasm of ascending colonBenign neoplasm of descending colonBenign neoplasm of cecumDvrtclos of lg int w/o perforation or abscess w/o bleedingBenign neoplasm of descending colonBenign neoplasm of ascending colon 9 Raghav Wagner. [address], [id number], [place]. tel:[phone] Referring Provider: Kallie Mckinley CNP D, [address] [facility] [place], [address]. tel:[phone] [facility], [address] [address], [place], [place], [id number], [place] tel:[phone] [facility] No Information 9 Gisell English. [address] [facility], [facility] [address], [place], [place], [id number], [place]. tel:[phone] Offic/outpt E&m Estab Mod-hi 2 [facility], [address] [address], [place], [place], [id number], [place] tel:[phone] [facility] GI Symptoms or Concerns (chief complaint) Epigastric painDietary counseling and surveillanceElev ated blood-pressure reading, w/o diagnosis of htn 8 Ricardo Cortes. [address] [facility] [address], [place], [place], [id number], [place]. tel:[phone] Referring Provider: Referral Self, USE FOR SELF REFERRALS. [facility], [address] [address], [place], [place], [id number], [place] tel:[phone] [facility] GERD without esophagitisEsoph ageal strictureGastro- esophageal reflux disease without esophagitisEsoph ageal obstruction 8 No Information Referring Provider: Kallie Mckinley OUT PATIENT THERAPIST D, [address] [place], [address]. tel:[phone] Family History Family Member Type Diagnosis Age [...] party ID Authoriza tion(s) Medicare [place] MB [id number] [facility] [id number] Social History Type Description Quantity Date Captured [...] with pantoprazole in the morning and 2 [id number]-[id number] Pepcid at night. He tends not to [...] a pH probe. Related to Epigastric discomfort Colon Cancer Prevention Related to Diverticulosis of colon High Fiber Diet Related to Diver ticulosis of colon Colon Polyps Related to Diver ticulosis of colon Diverticulosis/Diverticulitis Re lated to Diverticulosis of colon Lifestyle education regarding di et Related to Dietary counseling and surveillance Schatzki's Ring Related to Esoph ageal stricture Hiatal Hernia Related to Esoph ageal stricture Assessments Type Assessment Date No Information Patient Care Teams Name Effective Dates (start - stop) Status Members No Information
--- OUTSIDE RECORDS SUMMARY | 2024-04-20 22:43 | XMS_ITS | Clinical Summary ---
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 3238509513115 06 (SNOMED CT) Active Simone Becerril MD 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 vertebral artery stenosis 49528046 (SNOMED CT) Active Simone Becerril MD Vertebral artery stenosis Subclavian artery stenosis, left 381275781 (SNOMED CT) Active Simone Becerril MD Subclavian artery stenosis Proximal muscle weakness 295418252 (SNOMED CT) Active Umu Roberto Proximal muscle weakness Facial paresthesia, left 04840401 (SNOMED CT) 05/25 Active 05/27 Simone Becerril MD Facial paresthesia Vertebral basilar insufficiency 96727079 (SNOMED CT) 05/25 Active 05/27 Simone Becerril MD Basilar artery syndrome Vertebral artery stenosis 27332920 (SNOMED CT) 05/25 Removed 05/25 Simone Becerril MD Vertebral artery stenosis BPPV 025924167 (SNOMED CT) 05/25 Active 05/25 Simone Becerril MD Benign paroxysmal positional vertigo Medications Medication Instructions Start Date Stop Date Generic Name NDC Provider PLAVIX 75 MG TABS Take 1 tablet by mouth once a day ; stop aspirin 1 clopidogrel 39573907147 Simone Becerril MD CLOPIDOGREL BISULFATE 75 MG TABS TAKE 1 TABLET BY MOUTH EVERY DAY. STOP ASPIRIN 3 clopidogrel 47182741896 Simone Becerril MD FLOMAX 0.4 MG CAPS tamsulosin 33991711705 Simone Becerril MD LIPITOR 10 MG TABS atorvastatin 78244534916 Simone Becerril MD PANTOPRAZOLE SODIUM 20 MG TBEC pantoprazole 14450485466 Simone Becerril MD GABAPENTIN 600 MG TABS 100 mg bid gabapentin 40181459204 Simone Becerril MD PLAVIX 75 MG TABS Take 1 tablet by mouth once a day ; stop aspirin 1 clopidogrel 91785313752 Simone Becerril MD Medications Administered No information available. Allergies, Adverse Reactions, Alerts Observed no known allergies at Results Date Name Value Unit Range Flag Description Internal Other: Observation data from Authorization.pdf HIECONSENT Y Consent To Release information to the Health Information Exchange ([employer]) Internal Other: Verbal Autho rization/Emergency Contact - [...] Procedures Code Procedure Name Date Entry Date [facility]-[id number] Documentation of current medicatio ns ORDERS Physical Therapy ORDERS CK (Creatine Kinase) Total 2 023 ORDERS T4 Free Direct ORDERS TSH ORDERS Follow up [facility]-[id number] Documentation of current medicatio ns ORDERS Patient Instructions ORDERS CTA-Neck W/ ORDERS CTA-Head W/ ORDERS CTA-Neck W/ ORDERS CTA-Head W/ ORDERS Instructions for Staff 08/25 ORDERS Follow up in clinic or telemedicine with provider or MICKIE [facility]-[id number] Documentation of current medicatio ns ORDERS Vestibular Therapy 1 Vital Signs Date Name Value Unit Description Heart Rate 68 /min pulse rate Immunizations No information available. Advance Directives No information available.
--- OUTSIDE RECORDS SUMMARY | 2024-04-20 22:43 | XMS_ITS | Clinical Summary ---
Author Organization [employer] Address [place], [place] [address] Care Team Providers Care Registered Nurse Obstetrics Name Role Phone Josias Aden MD Primary Care Provider [phone] Nohemi Hobbs RN Unavailable Tano Escobar MD Unavailable Alivia Zamora MD Unavailable Brittani Bautista MBBS Unavailable [phone] EschEri RN Unavailable Kenya Glez CITRIX ENGINEER Unavailable Lety Vargas MD Unavailable Jesus Frederick ROUTE DRIVER COIN MACHINES Unavailable [phone] Allergies Active Allergy Reactions Criticality Noted [...] 09/27/2023: Left elbow; Malignant Melanoma: Referral to [facility] [place] - excision with Surgical Oncology Maximum depth [...] Care Team Description 04/18/2024 Travel 04/15/2024 Telephone [facility] [address] [place] [address] Jasmin Chowdary MD Results 04/09/2024 1:10 PM REEFER ENGINEER Office [place] [facility] [address] [facility] [address] [place] [address] Alivia Zamora MD Derm Problem (FBSE) 04/09/2024 8:45 AM REEFER ENGINEER Office Visit [facility] [place] [facility] [address] [place] [address] Josias Aden MD Medicare ANNUAL (subsequent) Visit (Patient has been having nose bleeds) 04/09/2024 Travel 04/07/2024 Travel 03/28/2024 Telephone [facility] [address] [place] [address] Kenya Glez NP Appointment 02/16/2024 11:00 AM REEFER ENGINEER Office Visit [facility] [address] [place] [address] Deacon Arias MD Procedure (CYSTOSCOPY) 02/16/2024 Travel 02/13/2024 11:45 AM REEFER ENGINEER Office Visit [facility] [address] [place] [address] Kenya Glez, CITRIX ENGINEER Follow Up 02/13/2024 Telephone [facility] [address] [facility] [place] [address] Kenya Glez, CITRIX ENGINEER Appointment 02/13/2024 Travel 02/12/2024 9:00 AM REEFER ENGINEER Orders Only [facility] [place] [facility] [address] [place] [address] Lab, Farm Lab 02/11/2024 Travel 02/08/2024 Travel 02/07/2024 Travel 01/27/[address] [address] Josias Aden MD Refill Request (Atorvastatin) 01/20/[address] [address] Josias Aden MD Refill Request (Gabapentin) from [...] Smoking Tobacco: Former Cigarettes 0.5 33 1 636 - 0970 Passive Smoke Exposure: Past Smokeless Tobacco: Never [...] Comments Blood Pressure 144/80 04/09/2024 8:53 AM REEFER ENGINEER Pulse 80 04/09/2024 8:53 AM REEFER ENGINEER Temperature 36.4 C (97.6 F) 02/13/2024 11:55 AM REEFER ENGINEER Respiratory Rate 17 02/13/2024 11:55 AM REEFER ENGINEER Oxygen Saturation 97% 02/16/2024 11:07 AM REEFER ENGINEER Inhaled Oxygen Concentration - - Weight 79.4 kg (175 lb) 04/09/2024 8:53 AM REEFER ENGINEER Height 168.3 cm (5' 6.25) 04/09/2024 8:53 AM CS T Body Mass Index 28.03 04/09/2024 8:53 AM REEFER ENGINEER Plan of Treatment Upcoming Encounters Date Type Department Care Team (Late st Contact Info) Description 04/23/2024 10:25 AM REEFER ENGINEER Office Visit [facility] [address] [place] [address] [place] [address] [place] [address] 05/03/2024 7:30 AM REEFER ENGINEER Appointment [facility] [address] [place] [address] 05/06/2024 1:45 PM REEFER ENGINEER Orders Only [facility] [address] [place] [address] Lab, Farm 05/08/2024 2:00 PM REEFER ENGINEER Office Visit [address] [place] [address] Lety Vargas MD [address] [place] [address] [place] [address] 07/08/2024 1:15 PM CDT Office Visit [facility] [address] [address] [place] [address] [place], [place] [address] Health Maintenance Due Date Last Done Comments [...] history exists Medical Devices Implanted Type Area Coremaking Machine Operator Device Identifier Shelf Expiration Date Model / Serial / Lot Stent Uret [id number] Percuflex Hydroplus - [id number] Implanted:Qty : 1 on 10/27/2023 by Deacon Arias MD at [facility] Uro Implants Left: Ureter [facility] 05/10/2026 [id number] / / [id number] Procedures Procedure Name Priority Date/Time Associated Diagnosis Comments PATH TISSUE EXAM Routine 04/09/2024 1:15 PM REEFER ENGINEER Neoplasm of uncertain behavior of skin CBC WITH AUTO DIFFERENTIAL Routine 02/12/2024 8:58 AM REEFER ENGINEER Malignant melanoma, unspecified site (HC) COMP METABOLIC PANEL Routine 02/12/2024 8:58 AM REEFER ENGINEER Malignant melanoma, unspecified site (HC) from Last 3 Months Results * PATH TISSUE EXAM (04/09/2024 1:15 PM REEFER ENGINEER) Case Report Pathology Report Case: [id number] Authorizing Provider: Alivia Zamora MD Collected: 04/09/2024 1315 Ordering Location: [facility] Received: 04/09/[address] [place] [address] Pathologist: Enoch Gerard MD Specimen: Skin, left lateral upper arm 04/12/2024 4:24 PM REEFER ENGINEER [facility] Final Diagnosis A) SKIN, LEFT LATERAL UPPER ARM, BIOPSY: 1. Lentiginous compound nevus with moderate atypia and associated dermal fibrosis, consistent with prior trauma a. Margin status: Positive (peripheral) 2. No evidence of malignancy 04/12/2024 4:24 PM [facility] Comment A) Incomplete sampling of melanocytic proliferations may impair accurate diagnosis. Clinical correlation with the overall size of the lesion, and presence of remaining or recurring pigment, is required for optimal treatment. 04/12/2024 4:24 PM [facility] Clinical Information A) brown macule with irregular juarez pigment, adjacent but clearly separate from melanoma excision scar. favor traumatized nevus, r/o malignancy 04/12/2024 4:24 PM [facility] Gross Description A) Received in formalin, labeled with the patient's name and left lateral upper arm, is a 0.8 x 0.6 cm skin biopsy. There is a 0.5 x 0.3 cm flat brown-black lesion. The specimen is inked red, trisected and entirely submitted in one cassette. SJM 04/10/2024 04/12/2024 4:24 PM REEFER ENGINEER [facility] Microscopic Description The final diagnosis [...] confirmed on tissue sections. 04/12/2024 4:24 PM REEFER ENGINEER [facility] Additional Information Interpreted at [facility] - [address] [facility] [address] [address] 04/12/2024 4:24 PM REEFER ENGINEER [facility] Other SPECIMEN FROM SKIN / Unknown Non-Blood / Unknown 04/09/2024 1:15 PM REEFER ENGINEER 04/09/2024 3:31 PM REEFER ENGINEER Alivia Zamora MD PATHOLOGY/CYTOLOGY Final Result [facility] [address] [place] [address], * CBC AND DIFFERENTIAL (02/12/2024 8:58 AM REEFER ENGINEER) WHITE BLOOD CELL COUNT 7.1 3.8 - 10.8 Thousand/u L [email or web address] RED BLOOD CELL COUNT 4.32 [...] BLOOD SPECIMEN / Unknown 02/12/2024 8:58 AM REEFER ENGINEER 02/12/2024 8:58 AM REEFER ENGINEER us Lety Vargas MD HEMATOLOGY Final Resu lt [facility] [address] [address] [place] [address], [email or web address] [address] * (ABNORMAL) COMP METABOLIC PANEL (02/12/2024 8:58 AM REEFER ENGINEER) GLUCOSE 107(H) 65 - 99 mg/dL [facility] Comment: Fasting reference interval For someone without known diabetes, a glucose value between 100 and 125 mg/dL is consistent with prediabetes and should be confirmed with a follow-up test. UREA NITROGEN (BUN) 21 7 - 25 mg/dL [facility] CREATININE 1.45(H) 0.70 - 1.22 mg/dL [facility] EGFR 48(L) > OR = [...] BLOOD SPECIMEN / Unknown 02/12/2024 8:58 AM REEFER ENGINEER 02/12/2024 8:58 AM REEFER ENGINEER us Lety Vargas MD CHEMISTRY Final Resu lt [facility] [address] [place] [address], [place] [phone] [facility] [address] [place] [address] from Last 3 Months Insurance [facility] [employer] LIFE MEDICARE PART A HB ONLY [facility] MR/MSHO Advance Directives Documents on File Type Date Recorded 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 Healthcare Directive 05/04/2019 020 * Full Code (Latest Code Status on File) Date Activated Date Inactivated Comments 10/27/2023 7:45 AM 10/27/2023 2:37 PM Question Answer Comments Code Status Discussion: Reviewed Preferences * Full Code Date Activated Date Inactivated Comments 10/26/2023 12:13 PM 10/26/2023 7:07 PM Question Answer Comments Code Status Discussion: Reviewed Preferences Care Teams Registered Nurse Obstetrics Relationship Specialty [place] [address] [place] [address] PCP - General Family Practice 05/31/23 Nohemi Hobbs, RN [address] [place] [address] [address] [place] [address] Nurse Navigator - Oncology Registered Nurse 10/03/23 Tano Escobar MD [address] [place] [address] Surgical Oncologist Surgery - Oncology 10/03/23 Alivia Zamora MD [address] [facility] [address] [place] [address] Dermatology Dermatology 10/04/23 Brittani Bautista MBBS [address] [place] [address] Cardiovascular Disease 10/12/23 [facility] [address] [place] [address] Nurse Navigator - Oncology Registered Nurse 11/29/23 Kenya Glez, CITRIX ENGINEER [address] [place] [address] Nurse Practitioner Hematology and Oncology 11/30/23 Lety Vargas MD [address] [place] [address] Medical Oncologist Hematology and Oncology 11/30/23 Jesus Frederick LSW [address] [place], [place] [id number] Director Of Career Resources Oncology 02/22/24
[2024-04-20 22:54] VITALS: BP 136/74; PULSE 112; RESP 20; O2SAT 95
[2024-04-20 23:19] LABS: Basophils Percent Auto 0.6 % (0.0-3.0); Eosinophils Percent Auto 0.8 % (0.0-7.0); Hematocrit 36.7 % (37.0-53.0); Hemoglobin* 12.6 gm/dL (13.5-17.5); Immature Granulocytes Pct Auto 0.7 %; Mean Corpuscular HGB Conc 34 gm/dL (32-36); Mean Corpuscular Hemoglobin 31 pg (26-34); Mean Corpuscular Volume 89 fL (80-100); Neutrophils Percent Auto 81.9 % (42.0-72.0); Platelet Count* 179 K/uL (140-440); RDW Coefficient of Variation % 12.4 % (11.5-15.5); Red Blood Count 4.13 m/uL (4.30-5.90); White Blood Count* 12.61 K/uL (4.50-11.00)
[2024-04-20 23:27] LABS: Slide Review Reflex No
[2024-04-20] MEDS: TRANEXAMIC ACID 1,000 MG in 0.9 % SODIUM CHLORIDE 100 ml 100 ML 440 MG IVPB (23:49)
[2024-04-21 02:39] VITALS: BP 136/74; PULSE 112; RESP 20; TEMP 36.9
== END 2024-04-21 02:39 | disposition home or self-care (01) ==
PROVIDERS: Emergency Provider Family Medicine; PCP Family Medicine
DX: R04.0 Epistaxis (principal); N18.30 Chronic kidney disease, stage 3 unspecified
CPT/HCPCS: 30901; 36415; 85018; 85025; 96374; 99283; 99284

== ENCOUNTER 2024-06-11 15:40 | Emergency (ER) | payer MEDICARE, OTHER, SELFPAY ==
--- OUTSIDE RECORDS SUMMARY | 2024-06-11 15:45 | XMS_ITS | Clinical Summary ---
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 2765645809855 06 (SNOMED CT) Active Simone Becerril MD 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 vertebral artery stenosis 90378765 (SNOMED CT) Active Simone Becerril MD Vertebral artery stenosis Subclavian artery stenosis, left 754484080 (SNOMED CT) Active Simone Becerril MD Subclavian artery stenosis Proximal muscle weakness 216176180 (SNOMED CT) Active Umu Roberto Proximal muscle weakness Facial paresthesia, left 73229710 (SNOMED CT) 05/25 Active 05/27 Simone Becerril MD Facial paresthesia Vertebral basilar insufficiency 59490320 (SNOMED CT) 05/25 Active 05/27 Simone Becerril MD Basilar artery syndrome Vertebral artery stenosis 38277451 (SNOMED CT) 05/25 Removed 05/25 Simone Becerril MD Vertebral artery stenosis BPPV 709938654 (SNOMED CT) 05/25 Active 05/25 Simone Becerril MD Benign paroxysmal positional vertigo Medications Medication Instructions Start Date Stop Date Generic Name NDC Provider PLAVIX 75 MG TABS Take 1 tablet by mouth once a day ; stop aspirin 1 clopidogrel 50441411679 Simone Becerril MD CLOPIDOGREL BISULFATE 75 MG TABS TAKE 1 TABLET BY MOUTH EVERY DAY. STOP ASPIRIN 3 clopidogrel 23158202395 Simone Becerril MD FLOMAX 0.4 MG CAPS tamsulosin 19160389003 Simone Becerril MD LIPITOR 10 MG TABS atorvastatin 29605345632 Simone Becerril MD PANTOPRAZOLE SODIUM 20 MG TBEC pantoprazole 81896067969 Simone Becerril MD GABAPENTIN 600 MG TABS 100 mg bid gabapentin 95594482425 Simone Becerril MD PLAVIX 75 MG TABS Take 1 tablet by mouth once a day ; stop aspirin 1 clopidogrel 30029619507 Simone Becerril MD Medications Administered No information available. Allergies, Adverse Reactions, Alerts Observed no known allergies at Results Date Name Value Unit Range Flag Description Internal Other: Observation data from Authorization.pdf HIECONSENT Y Consent To Release information to the Health Information Exchange ([employer]) Internal Other: Verbal Autho rization/Emergency Contact - [...] order EMG right upper ext Pending order Follow up MICKIE Pending order Patient Instruct ions Pending order EMG right lower ext Pending order EMG right upper ext Pending order EMG right upper ext Pending order Physical Therapy Pending order Patient Instruct ions Pending order Follow up Pending order Aldolase Pending order Aldolase Pending order CK (Creatine [...] Procedures Code Procedure Name Date Entry Date [facility]-[id number] Documentation of current medicatio ns ORDERS Physical Therapy ORDERS CK (Creatine Kinase) Total 2 ORDERS T4 Free Direct ORDERS TSH ORDERS Follow up [facility]-[id number] Documentation of current medicatio ns ORDERS Patient Instructions ORDERS CTA-Neck W/ ORDERS CTA-Head W/ ORDERS CTA-Neck W/ ORDERS CTA-Head W/ ORDERS Instructions for Staff 08/25 ORDERS Follow up in clinic or telemedicine with provider or MICKIE [facility]-[id number] Documentation of current medicatio ns ORDERS Vestibular Therapy 1 Vital Signs Date Name Value Unit Description Heart Rate 68 /min pulse rate Immunizations No information available. Advance Directives No information available.
--- OUTSIDE RECORDS SUMMARY | 2024-06-11 15:45 | XMS_ITS | Clinical Summary ---
Author Organization [facility] Address [address] [place] [address] Care Team Providers Care Fork Lift Technician Name Role Phone Josias Aden MD Primary Care Provider [phone] Nohemi Hobbs RN Unavailable [phone] Tano Escobar MD Unavailable Alivia Zamora MD Unavailable Brittani Bautista MBBS Unavailable [phone] EschEri RN Unavailable Kenya Glez METAL REFINER Unavailable Lety Vargas MD Unavailable [phone] Jesus Frederick JAVA PROGRAMMING PROFESSOR Unavailable Allergies Active Allergy Reactions Criticality Noted Date Comments Hydrocodone-Acetamin ophen Hallucinations,Other - Describe In Comment Field Unknown 01/01/2013 Lots of noise in head Medications fexofenadine (Pam Allergy) 180 mg tablet 05/12/19 22 Active BABY ASPIRIN ORAL Take by mouth. Active pantoprazole (PROTONIX) 40 mg delayed-release tabletIndication s:Abdominal pain, LUQ (left upper quadrant),Chroni c GERD Take 1 Tablet (40 mg) by mouth two times daily before meals. 180 Tablet 3 04/09/19 25 Active finasteride (PROSCAR) 5 mg tabletIndication s:BPH without urinary obstruction Take 1 Tablet (5 mg) by mouth once daily in the morning. 90 Tablet 3 04/09/19 25 Active atorvastatin (LIPITOR) 10 mg tabletIndication s:Hypercholester olemia Take 1 Tablet (10 mg) by mouth at bedtime. 90 Tablet 3 04/09/19 25 Active gabapentin (NEURONTIN) 300 mg capsuleIndicatio ns:Abdominal pain, LUQ (left upper quadrant),Chroni c abdominal pain Take 1 Capsule (300 mg) by mouth once daily. 90 Capsule 3 04/09/19 25 Active lisinopriL (PRINIVIL; ZESTRIL) 20 mg tabletIndication s:Essential hypertension Take 1 Tablet (20 mg) by mouth once daily. 90 Tablet 3 04/09/19 25 Active hydroCHLOROthiaz imelda 25 mg tabletIndication s:Essential hypertension Take 1 Tablet (25 mg) by mouth once daily. 30 Tablet 11 05/28/19 25 Active escitalopram oxalate (LEXAPRO) 10 mg tabletIndication s:Depression, recurrent Take 1 Tablet (10 mg) by mouth once daily in the morning. 90 Tablet 3 05/28/19 25 Active tamsulosin 0.4 mg capsuleIndicatio ns:BPH without urinary obstruction TAKE 2 CAPSULES(0. 8 MG) BY MOUTH AT BEDTIME 180 Capsule 3 06/12/19 25 Active tamsulosin (FLOMAX) 0.4 mg capsuleIndicatio ns:benign prostatic hyperplasia with lower urinary tract sx Take 2 Capsules (0.8 mg) by mouth at bedtime. 180 Capsule 2 09/11/19 24 025 Discontinued escitalopram oxalate (LEXAPRO) 10 mg tabletIndication s:Depression, recurrent Take 1 Tablet (10 mg) by mouth once daily in the morning. 30 Tablet 11 04/09/19 25 025 Discontinued(Re order (E-cancel not sent)) Active Problems Problem Noted [...] 09/27/2023: Left elbow; Malignant Melanoma: Referral to [facility] [place] - excision with Surgical Oncology Maximum depth [...] renal pelvis 06/16/2021 06/16/2021 Anterior epistaxis 01/21/2021 07/30/202 4 Encounters Date Type Department Care Team Description 06/10/2024 Refill [facility] [address] [place] [address] Josias Aden MD Refill Request (Tamsulosin) 05/27/2024 2:10 PM TALENT ENGINEER Office Visit [facility] [address] [place] [address] Josias Aden MD Follow Up (Blood pressure ) 05/26/2024 Travel 05/21/2024 [address]phone [address] [place] [address] Lety Vargas MD Appointment 05/21/2024 Travel 05/17/2024 Telephone [facility] [address] [place] [address] Josias Aden MD Results 05/16/2024 1:00 PM TALENT ENGINEER Orders Only [facility] [address] [place] [address] Lab, Farm Lab 05/16/2024 Travel 05/08/2024 2:00 PM TALENT ENGINEER Office Visit [address] [place] [address] Lety Vargas MD 05/08/2024 Travel 05/07/2024 Telephone [facility] [address] [place] [address] Josias Aden MD Concerns 05/07/2024 Nurse Triage [facility] [address] [place] [address] Josias Aden MD Questions 05/07/[address] [place] [address] Nafisa Haines certified medical dosimetrist 05/06/2024 1:45 PM TALENT ENGINEER Orders Only [facility] [address] [place] [address] Lab, Farm Lab 05/06/2024 Travel 05/03/2024 7:10 AM TALENT ENGINEER - 05/03/2024 11:59 PM TALENT ENGINEER Hospital Encounter [facility] [address] [place] [address] Kenya Glez METAL REFINER Malignant melanoma, unspecified site (HC); 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 (HC) 05/03/2024 Travel 04/24/2024 Nurse Triage [facility] [address] [place] [address] Josias Aden MD Low Blood Pressure 04/23/2024 [id number] [place] [address] Josias Aden MD Appointment Request (STAT referral) 04/22/[address] [address] Josias Aden MD Hospital F/U (EMERGENCY REFERRAL NEEDED FOR ENT) 04/18/2024 Travel 04/15/2024 Telephone [facility] [address] [place] [address] Jasmin Chowdary MD Results 04/09/2024 1:10 PM TALENT ENGINEER Office Visit [facility] [address] [address] Alivia Zamora MD Derm Problem (FBSE) 04/09/2024 8:45 AM TALENT ENGINEER Office Visit [facility] [address] [place] [address] Josias Aden MD Medicare ANNUAL (subsequent) Visit (Patient has been having nose bleeds) 04/09/2024 Travel 04/07/2024 Travel 03/28/2024 Telephone [facility] [place] [address] [address] Kenya Glez METAL REFINER Appointment from Last 3 Months Immunizations Immunization Administration Dates Next Due COVID-19 VACCINE SPIKEVAX [...] or isolated from those around you? 0 05/26/2024 Financial Resource Strain Answer Date R ecorded Difficulty of Paying Living Expenses 3 05/26/2024 Difficulty of Paying Living Expenses Not on file 05/26/2024 Food Insecurity Answer Date Recorded Do you worry your food will run out before you are able to buy more? 1 05/26/2024 Transportation Needs Answer Date Record ed Does lack of transportation keep you from medica l appointments? 1 05/26/2024 Does lack of transportation keep you from work, meetings or getting things that you need? 1 05/26/2024 Housing Stability Answer Date Recorded What is your housing situation today? 1 05/26/2024 Interpersonal Safety Answer Date Record ed Are you being hit, kicked, p ushed or yelled at (see row info)? No 11/02/2023 Interpersonal Safety Abuse 12 - 18 Not on file 11/02/2023 Interpersonal Safety Ambulatory Vulnerability No t on file 11/02/2023 Utilities Answer Date Recorded Do you have trouble paying f or utilities (for example, heat, electricity, water, phone)? 1 05/26/2024 Sex and Gender Information Value Date Recorded Sex Assigned at Male 10/10/2020 11:22 AM CDT Legal Sex Male 1:51 PM CDT Gender Identity Male 10/10/2020 11:22 AM CDT Sexual Orientation Not on file Obstetrics History Last Filed Vital Signs Vital Sign Reading Time Taken Comments Blood Pressure 158/78 05/27/2024 2:13 PM TALENT ENGINEER Pulse 90 05/27/2024 2:13 PM TALENT ENGINEER Temperature 36.4 C (97.6 F) 05/08/2024 2:03 PM TALENT ENGINEER Respiratory Rate 18 05/08/2024 2:03 PM TALENT ENGINEER Oxygen Saturation 93% 05/08/2024 2:03 PM TALENT ENGINEER Inhaled Oxygen Concentration - - Weight 78.6 kg (173 lb 3.2 oz) 05/27/2024 2:13 P M TALENT ENGINEER Height 172.7 cm (5' 8) 05/08/2024 2:03 PM TALENT ENGINEER Body Mass Index 26.33 05/08/2024 2:03 PM TALENT ENGINEER Plan of Treatment Upcoming Encounters Date Type Department Care Team (Late st Contact Info) Description 07/08/2024 1:15 PM CDT Office Visit [facility] [id number] [place] [address] [place] [address] 07/29/2024 11:30 AM CDT Orders Only [facility] [address] [place] [address] Lab, Farm 08/02/2024 1:00 PM CDT Appointment [facility] [address] [place] [address] 08/08/2024 12:45 PM CDT Office Visit [facility] [address] [facility] [address] [place] [address] Kenya Glez, METAL REFINER [address] [facility] [place] [address] Health Maintenance Due Date Last Done Comments RSV vaccine for adults or (1 - 1-dose 75+ series) 2014 COVID-19 vaccine series (9 - Pfizer risk 2023- season) 2024 12/25/2023, 01/25/2023, 10/13/2022, Additional history exists Depression screening for age 12+ 04/09/2025 04/09/2024, 04/09/2024, 11/03/2023, Additional history exists Medicare Wellness for age 65+ 04/10/2025, 04/24/2023, 02/23/2022, Additional history exists BMI (ht and wt on same day) for age 18+ 05/08/2025 05/08/2024, 04/09/2024, 11/14/2023, Additional history exists Tetanus booster 01/09/2027 01/09/2017, 12/22/2011 Tdap Completed 01/09/2017 Pneumococcal series for age 50+ Completed 8, 01/06/2015 Zoster (shingles) series for age 50+ Completed 04/05/2020, 02/05/2020, 01/03/2011, Additional history exists Influenza Vaccine Completed 12/25/2023, , 02/09/2022, Additional history exists Medical Devices Implanted Type Area Television Antenna Installer Device Identifier Shelf Expiration Date Model / Serial / Lot Stent Uret [id number] Percuflex Hydroplus - [id number] Implanted:Qty : 1 on 10/27/2023 by Deacon Arias MD at [facility] Uro Implants Left: [facility] 05/10/2026 [id number] / / [id number] Procedures Procedure Name Priority Date/Time Associated Diagnosis Comments BASIC METABOLIC PANEL Routine 05/16/2024 12:48 PM TALENT ENGINEER Hyponatremia CBC WITH AUTO DIFFERENTIAL Routine 05/06/2024 1:29 PM TALENT ENGINEER Malignant melanoma, unspecified site (HC) 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 (HC) COMP METABOLIC PANEL Routine 05/06/2024 1:29 PM TALENT ENGINEER Malignant melanoma, unspecified site (HC) 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 (HC) PET CT WHOLE BODY INITIAL TREAT Routine 05/03/2024 9:15 AM TALENT ENGINEER Malignant melanoma, unspecified site (HC) 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 (HC) PATH TISSUE EXAM Routine 04/09/2024 1:15 PM TALENT ENGINEER Neoplasm of uncertain behavior of skin from Last 3 Months Results * (ABNORMAL) BASIC METABOLIC PANEL (05/16/2024 12:48 PM TALENT ENGINEER) GLUCOSE 78 65 - 99 mg/dL [facility] Comment: Fasting reference interval UREA NITROGEN (BUN) 14 7 - 25 mg/dL [facility] CREATININE 1.40(H) 0.70 - 1.22 mg/dL [facility] EGFR 49(L) > OR = 60 mL/min/1.7 3m2 [facility] BUN/CREATININE RATIO 10 6 - 22 (calc) [facility] SODIUM 129(L) 135 - 146 mmol/L [facility] POTASSIUM 4.2 3.5 - 5.3 mmol/L [facility] CHLORIDE 97(L) 98 - 110 mmol/L [facility] CARBON DIOXIDE 25 20 - 32 mmol/L [facility] ELECTROLYTE BALANCE 7 7 - 17 mmol/L (calc) [facility] CALCIUM 9.8 8.6 - 10.3 mg/dL [facility] Blood BLOOD SPECIMEN / Unknown 05/16/2024 12:48 PM TALENT ENGINEER 05/16/2024 12:49 PM TALENT ENGINEER us Josias Aden MD CHEMISTRY Final Resul t [facility] [address] [place] [address], [facility] [address] * (ABNORMAL) CBC AND DIFFERENTIAL (05/06/2024 1:29 PM TALENT ENGINEER) Pathologist [facility] WHITE BLOOD CELL COUNT 9.0 3.8 - 10.8 Thousand/u L [facility] RED BLOOD CELL COUNT 3.56(L) 4.20 - 5.80 Million/uL [facility] HEMOGLOBIN 10.8(L) 13.2 - 17.1 g/dL [facility] HEMATOCRIT 32.9(L) 38.5 - 50.0 % [facility] MCV 92.4 80.0 - 100.0 fL [facility] MCH 30.3 27.0 - 33.0 pg [facility] MCHC 32.8 32.0 - 36.0 g/dL [facility] Comment: For adults, a slight decrease in the calculated MCHC value (in the range of 30 to 32 g/dL) is most likely not clinically significant; however, it should be interpreted with caution in correlation with other red cell parameters and the patient's clinical condition. RDW 12.3 11.0 - 15.0 % [facility] PLATELET COUNT 297 140 - 400 Thousand/u L [facility] MPV 10.5 7.5 - 12.5 fL [facility] ABSOLUTE NEUTROPHILS 7,110 1,500 - 7,800 cells/uL [facility] ABSOLUTE LYMPHOCYTES 1,152 850 - 3,900 cells/uL [facility] ABSOLUTE MONOCYTES 612 200 - 950 cells/uL [facility] ABSOLUTE EOSINOPHILS 36 15 - 500 cells/uL [facility] ABSOLUTE BASOPHILS 90 0 - 200 cells/uL [facility] NEUTROPHILS 79 % [facility] LYMPHOCYTES 12.8 % [facility] MONOCYTES 6.8 % [facility] EOSINOPHILS 0.4 % [facility] BASOPHILS 1.0 % [facility] Blood BLOOD SPECIMEN / Unknown 05/06/2024 1:29 PM TALENT ENGINEER 05/06/2024 1:30 PM TALENT ENGINEER us Kenya Glez NP HEMATOLOGY Final Result [facility] [address] [place] [address], [facility] [address] [place] [phone] * (ABNORMAL) COMP METABOLIC PANEL (05/06/2024 1:29 PM TALENT ENGINEER) [facility] GLUCOSE 93 65 - 99 mg/dL [facility] Comment: Fasting reference interval UREA NITROGEN (BUN) 14 7 - 25 mg/dL [facility] CREATININE 1.35(H) 0.70 - 1.22 mg/dL [facility] EGFR 51(L) > OR = 60 mL/min/1.7 3m2 [facility] BUN/CREATININE RATIO 10 6 - 22 (calc) [facility] SODIUM 125(L) 135 - 146 mmol/L [facility] POTASSIUM 5.0 3.5 - 5.3 mmol/L [facility] CHLORIDE 92(L) 98 - 110 mmol/L [facility] CARBON DIOXIDE 24 20 - 32 mmol/L [facility] CALCIUM 9.8 8.6 - 10.3 mg/dL [facility] PROTEIN, TOTAL 7.3 6.1 - 8.1 g/dL [facility] ALBUMIN 4.0 3.6 - 5.1 g/dL [facility] GLOBULIN 3.3 1.9 - 3.7 g/dL (calc) [facility] ALBUMIN/GLOBULIN RATIO 1.2 1.0 - 2.5 (calc) [facility] BILIRUBIN, TOTAL 0.5 0.2 - 1.2 mg/dL [facility] ALKALINE PHOSPHATASE 68 35 - 144 U/L [facility] AST 24 10 - 35 U/L [facility] ALT 11 9 - 46 U/L [facility] Blood BLOOD SPECIMEN / Unknown 05/06/2024 1:29 PM TALENT ENGINEER 05/06/2024 1:30 PM TALENT ENGINEER us Kenya Glez NP CHEMISTRY Final Result [facility] [address] [place] [address], [facility] [address] [place] [address] * PET CT WHOLE BODY INITIAL TREAT (05/03/2024 9:15 AM TALENT ENGINEER) Anatomical Region Laterality Modality Positron Emissio n Tomography (PET) 05/03/2024 9:15 AM TALENT ENGINEER Impressions 05/03/2024 3:19 PM TALENT ENGINEER 1. An asymmetric mildly enlarged left axillary lymph node with only minimal uptake is indeterminate although probably inflammatory. A melanoma metastasis is not excluded although would typically have a much greater degree of FDG activity. If desired, ultrasound-guided biopsy is feasible for more definitive diagnosis. 2. Otherwise no evidence of FDG avid malignancy or metastasis. Narrative 05/03/2024 3:19 PM TALENT ENGINEER For Patients: As a result of the Cures Act, medical imaging exams and procedure reports are released immediately into your electronic medical record. You may view this report before your referring provider. If you have questions, please contact your health care provider. EXAM: PET CT WHOLE BODY INITIAL TREAT LOCATION: [facility] DATE: 05/03/2024 INDICATION: Melanoma, staging. Malignant melanoma of left upper limb, including shoulder. Status post surgical resection. 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. Initial treatment strategy. COMPARISON: CT abdomen pelvis 10/24/2023 reviewed. TECHNIQUE: Serum glucose level 99 mg/dL. One hour post intravenous administration of FDG 9.23 mCi, PET imaging was performed from the skull vertex to feet, utilizing attenuation correction with concurrent axial CT and PET/CT image fusion. Dose reduction techniques were used. FINDINGS: An asymmetric mildly enlarged left axillary lymph node measuring 1.2 x 1.6 cm demonstrates minimal FDG activity (SUVmax 2.2), indeterminate. Postoperative changes in the more lateral left axillary region with a circumscribed round fluid collection measuring 3.5 x 3.0 cm, likely a seroma or lymphocele. No FDG avid adenopathy elsewhere. No pulmonary nodule. No suspicious focal uptake in the liver or skeleton. Advanced senescent intracranial changes. Mild mucosal thickening right sphenoid sinus. Normal anatomic variant right sided aortic arch. Mild emphysematous changes. Mild scattered reticular and bandlike areas of scarring or atelectasis in both lungs. Moderate atherosclerotic calcifications including the coronary arteries. Small esophageal hiatal hernia. Cholecystectomy. Duodenal diverticulum. Splenule. Right nephrectomy. Few benign left renal cysts, no follow-up needed. Mild colonic diverticulosis, greatest in the sigmoid region. Tiny bilateral knee joint effusions with low-level inflammatory uptake. Mild thoracolumbar curve. Bony demineralization. Mild scattered hypertrophic degenerative changes in the spine. Left shoulder reverse TSA. Bilateral THAs. Procedure Note Don Kim MD - 05/03/2024 For Patients: As a result of the Cures Act, medical imagingexams and procedure reports are released immediately into your electronicmedical record. You may view this report before your referring provider.If you have questions, please contact your health care provider. EXAM: PET CT WHOLE BODY INITIAL TREAT LOCATION: [facility] DATE: 05/03/2024 INDICATION: Melanoma, staging. Malignant melanoma of left upper limb,including shoulder. Status post surgical resection. Malignant melanoma ofskin of left elbow. Initial treatment strategy. COMPARISON: CT abdomen pelvis 10/24/2023 reviewed. TECHNIQUE: Serum glucose level 99 mg/dL. One hour post intravenousadministration of FDG 9.23 mCi, PET imaging was performed from the skullvertex to feet, utilizing attenuation correction with concurrent axial CTand PET/CT image fusion. Dose reduction techniques were used. FINDINGS: An asymmetric mildly enlarged left axillary lymph node measuring1.2 x 1.6 cm demonstrates minimal FDG activity (SUVmax 2.2),indeterminate. Postoperative changes in the more lateral left axillaryregion with a circumscribed round fluid collection measuring 3.5 x 3.0 cm,likely a seroma or lymphocele. No FDG avid adenopathy elsewhere. Nopulmonary nodule. No suspicious focal uptake in the liver or skeleton. Advanced senescent intracranial changes. Mild mucosal thickening rightsphenoid sinus. Normal anatomic variant right sided aortic arch. Mildemphysematous changes. Mild scattered reticular and bandlike areas ofscarring or atelectasis in both lungs. Moderate atheroscleroticcalcifications including the coronary arteries. Small esophageal hiatalhernia. Cholecystectomy. Duodenal diverticulum. Splenule. Rightnephrectomy. Few benign left renal cysts, no follow-up needed. Mildcolonic diverticulosis, greatest in the sigmoid region. Tiny bilateralknee joint effusions with low-level inflammatory uptake. Mildthoracolumbar curve. Bony demineralization. Mild scattered hypertrophicdegenerative changes in the spine. Left shoulder reverse TSA. BilateralTHAs. IMPRESSION: 1. An asymmetric mildly enlarged left axillary lymph node with onlyminimal uptake is indeterminate although probably inflammatory. A melanomametastasis is not excluded although would typically have a much greaterdegree of FDG activity. If desired, ultrasound-guided biopsy is feasiblefor more definitive diagnosis. 2. Otherwise no evidence of FDG avid malignancy or metastasis. us Kenya Glez NP PET Final Result * PATH TISSUE EXAM (04/09/2024 1:15 PM TALENT ENGINEER) Case Report Pathology Report Case: [id number] Authorizing Provider: Alivia Zamora MD Collected: 04/09/2024 1315 Ordering Location: [facility] Received: 04/09/[address] [place] [address] Pathologist: Enoch Gerard MD Specimen: Skin, left lateral upper arm 04/12/2024 4:24 PM [facility] Final Diagnosis A) SKIN, LEFT LATERAL UPPER ARM, BIOPSY: 1. Lentiginous compound nevus with moderate atypia and associated dermal fibrosis, consistent with prior trauma a. Margin status: Positive (peripheral) 2. No evidence of malignancy 04/12/2024 4:[address] [facility] Comment A) Incomplete sampling of melanocytic proliferations may impair accurate diagnosis. Clinical correlation with the overall size of the lesion, and presence of remaining or recurring pigment, is required for optimal treatment. 04/12/2024 4:[address] [facility] Clinical Information A) brown macule with irregular juarez pigment, adjacent but clearly separate from melanoma excision scar. favor traumatized nevus, r/o malignancy 04/12/2024 4:[address] [facility] Gross Description A) Received in formalin, labeled with the patient's name and left lateral upper arm, is a 0.8 x 0.6 cm skin biopsy. There is a 0.5 x 0.3 cm flat brown-black lesion. The specimen is inked red, trisected and entirely submitted in one cassette. [facility] 04/10/2024 04/12/2024 4:[address] [facility] Microscopic Description The final diagnosis is [...] confirmed on tissue sections. 04/12/2024 4:24 PM TALENT ENGINEER [facility] Additional Information Interpreted at [facility] - [address], [place] [address] 04/12/2024 4:24 PM TALENT ENGINEER [facility] Other SPECIMEN FROM SKIN / Unknown Non-Blood / Unknown 04/09/2024 1:15 PM TALENT ENGINEER 04/09/2024 3:31 PM TALENT ENGINEER us Alivia Zamora MD PATHOLOGY/CYTOLOGY Final Result [facility] 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 Expl anation Healthcare Directive 05/04/2019 020 * Full Code (Latest Code Status on File) Date Activated Date Inactivated Comments 10/27/2023 7:45 AM 10/27/2023 2:37 PM Question Answer Comments Code Status Discussion: Reviewed Preferences * Full Code Date Activated Date Inactivated Comments 10/26/2023 12:13 PM 10/26/2023 7:07 PM Question Answer Comments Code Status Discussion: Reviewed Preferences Care Teams Fork Lift Technician Relationship Specialty [place] [address] [place] [address] PCP - General Family Practice 05/31/23 Nohemi Hobbs, RN [address] [address] Nurse Navigator - Oncology Registered Nurse 10/03/23 Tano Escobar MD [address] [place] [address] Surgical Oncologist Surgery - Oncology 10/03/23 Alivia Zamora MD [address] [facility] [address] [place] [address] Dermatology Dermatology 10/04/23 Brittani Bautista MBBS [address] [place] [address] Cardiovascular Disease 10/12/23 Eri Young RN [address] [place], [place] [phone] Nurse Navigator - Oncology Registered Nurse 11/29/23 Kenya Glez, METAL REFINER [address] [place], [place] [phone] Nurse Practitioner Hematology and Oncology 11/30/23 Lety Vargas MD [address] [place], [place] [phone] Medical Oncologist Hematology and Oncology 11/30/23 Jesus Frederick LSW [address] [place] [address] Wireless Sales Manager Oncology 02/22/24
[2024-06-11 15:52] VITALS: BP 167/93; PULSE 96; RESP 20; TEMP 36.9; O2SAT 95; BMI 22.0
[2024-06-11] MEDS: BENZOCAINE 20 % SPRAY 1 EACH NOSTRIL-L (16:10)
--- NOTE | 2024-06-11 16:32 | ED.GENADULT ---
HPI - General Adult General Date Seen: 06/11/24 Chief complaint: Ear/Nose/Throat Problem Stated complaint: bloody nose Time Seen by Provider: 06/11/24 16:03 History of Present Illness HPI narrative: Patient is an 84-year-old here with his daughter for evaluation of nose bleed. He started to have bleeding from his right nares a couple hours prior to presentation. Was not able to get it stop with pressure. His daughter notes that he has had problems with nose bleeds, was apparently seen here in March and had a rhino rocket at that time. He has been seeing Dr. Wise and has had several areas cauterized. Has done well until today when he had onset of fairly brisk bleeding. At this time he is bleeding out of both sides but he is confident that it started on the right. His daughter says it has always been on the right side. He is not anticoagulated, does take a daily aspirin. Related Data Home Medications ?Medication ?Instructions ?Recorded ?Confirmed atorvastatin 10 mg tablet 10 mg PO HS 10/12/21 06/11/24 fexofenadine 60 mg tablet (Pam 60 mg PO Q12H 10/12/21 06/04/24 Allergy) finasteride 5 mg tablet 5 mg PO DAILY 10/12/21 06/11/24 tamsulosin 0.4 mg capsule 0.4 mg PO DAILY 10/12/21 06/11/24 pantoprazole 40 mg tablet,delayed 40 mg PO BID 12/29/21 06/11/24 release acetaminophen 500 mg oral powder 500 mg PO Q6H PRN 06/16/22 06/04/24 packet (Tylenol Extra Strength) escitalopram oxalate 5 mg tablet 5 mg PO DAILY 03/30/24 06/04/24 gabapentin 300 mg capsule 300 mg PO DAILY 03/30/24 06/11/24 lisinopril 10 mg tablet 10 mg PO DAILY 03/30/24 06/04/24 aspirin 81 mg tablet,delayed 81 mg PO DAILY 06/11/24 06/11/24 release (Adult Aspirin Regimen) Allergies Allergy/AdvReac Type Severity Reaction Status Date / Time hydrocodone (From Vicodin) Allergy Verified 06/04/24 10:03 Review of Systems Status of ROS: Reports: 6 or more systems reviewed and unremarkable except as noted in History and below [facility] Medical History Hypertrophy of prostate without urinary obstruction ?N40.0 - Benign prostatic hyperplasia without lower urinary tract symptoms (ICD-10) Stage 3 chronic kidney disease ?N18.30 - Chronic kidney disease, stage 3 unspecified (ICD-10) Hypertension ?I10 - Essential (primary) hypertension (ICD-10) Ventral hernia ?K43.9 - Ventral hernia without obstruction or gangrene (ICD-10) Elevated cholesterol ?E78.00 - Pure hypercholesterolemia, unspecified (ICD-10) Arthritis ?M19.90 - Unspecified osteoarthritis, unspecified site (ICD-10) Acid reflux ?K21.9 - Gastro-esophageal reflux disease without esophagitis (ICD-10) Anterior epistaxis ?R04.0 - Epistaxis (ICD-10) Surgical History 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) ?Z96.612 - Presence of left artificial shoulder joint (ICD-10) History of incisional hernia repair ?Z98.890 - Other specified postprocedural states (ICD-10) ?Z87.19 - Personal history of other diseases of the digestive system (ICD-10) History of appendectomy ?Z90.49 - Acquired absence of other specified parts of digestive tract (ICD-10) History of bowel resection ?Z90.49 - Acquired absence of other specified parts of digestive tract (ICD-10) Hx laparoscopic cholecystectomy ?Z90.49 - Acquired absence of other specified parts of digestive tract (ICD-10) History of right nephrectomy ?Z90.5 - Acquired absence of kidney (ICD-10) History of revision of total replacement of right hip joint ?Z96.641 - Presence of right artificial hip joint (ICD-10) History of left hip replacement ?Z96.642 - Presence of left artificial hip joint (ICD-10) History of right hip replacement ?Z96.641 - Presence of right artificial hip joint (ICD-10) Family History Father CHF (congestive heart failure) Mother COPD (chronic obstructive pulmonary disease) Sister Congenital hip deformity Social History Narrative: -Michelle Smoking Status: Former smoker Do you use any of these nicotine containing products: None Second hand tobacco smoke exposure: No How often do you have a drink containing alcohol: monthly or less Alcohol type: beer How many standard drinks containing alcohol do you have on a typical day: 1 or 2 How often do you have six or more drinks on one occasion: Never AUDIT-C Alcohol total score: 1 Non-prescribed substance use: denies use Caffeine: No Exam Narrative: Exam Narrative: Vital signs reviewed In general, alert, nontoxic elderly male. Eyes: Sclera clear. ENT: He has brisk bleeding out of both nares and down the back of his throat. Neck: Supple. Neurologic: He is alert, conversant, gait stable. Const: Vital Signs, click to edit/add: Vital Signs - 24 hr 06/11/24 15:52 06/11/24 16:47 Temperature 98.5 F Pulse Rate 90 Pulse Rate [Pulse Oximeter] 96 Respiratory Rate 20 16 Blood Pressure 164/85 H Blood Pressure [Ri ght Upper Arm] 167/93 H Pulse Oximetry 95 95 Oxygen Delivery Me thod Room Air Room Air Documenting provider has reviewed patient's vital signs: yes Course Course ED Course: On initial evaluation, patient had fairly brisk bleeding from both nares. I was able to control this reasonably well with compression, but not for any length of time, brisk bleeding restarted as soon as compression was released. I was not able to see anything meaningful in the right nares due to bleeding. On the left I do not see any evidence of a bleeding vessel. I recommended placing Merocel to control the bleeding, which he agreed with. Procedure note: Initially he had her cane spray in the right naris followed by Afrin. I then placed a Merocel pack in infiltrated it with Afrin. He continued to have some bleeding after that so I placed a 2nd pack and again infiltrated this with Afrin. After that, he did not have further significant bleeding. Had an occasional drip from the left nares, re-examined and did not see anything actively bleeding on that side, so I think that is probably coming from the packing posteriorly. I watched him for about 45 minutes. He has not had further significant bleeding. I think it is reasonable to let him go home. We discussed that if he does have brisk bleeding again he will need to come back. Otherwise, minimize activity and follow-up with Dr. Wise. Vital Signs Vital signs: Initial Vital Signs Temperature 98.5 F 06/11/24 15:52 Temperature Source Temporal Artery Scan 06/11/24 15:52 Pulse Rate 96 06/11/24 15:52 Respiratory Rate 20 06/11/24 15:52 Blood Pressure 167/93 H 06/11/24 15:52 Blood Pressure Mean 117 H 06/11/24 15:52 Pulse Oximetry 95 06/11/24 15:52 Oxygen Delivery Method Room Air 06/11/24 15:52 Vital Signs Temperature 98.5 F 06/11/24 15:52 Pulse Rate 96 06/11/24 15:52 Respiratory Rate 20 06/11/24 15:52 Blood Pressure 167/93 H 06/11/24 15:52 Pulse Oximetry 95 06/11/24 15:52 Oxygen Delivery Method Room Air 06/11/24 15:52 Temperature 98.5 F 06/11/24 15:52 Pulse Rate 90 06/11/24 16:47 Respiratory Rate 16 06/11/24 16:47 Blood Pressure 164/85 H 06/11/24 16:47 Pulse Oximetry 95 06/11/24 16:47 Oxygen Delivery Method Room Air 06/11/24 16:47 Medications Administered Medications: Generic Name Dose Route Start Last Admin Trade Name Freq PRN Reason Stop Dose Admin Oxymetazoline HCl 1 spray 06/11/24 16:04 06/11/24 16:54 Oxymetazoline 0.05% Nasal [place] NOSTRIL-B 1 spray BID PRN Administration Discontinued Medications Generic Name Dose Route Start Last Admin Trade Name Freq PRN Reason Stop Dose Admin Benzocaine 1 each 06/11/24 16:04 06/11/24 16:10 Benzocaine 20 % [place] NOSTRIL-L 06/11/24 16:05 1 each ONCE ONE Administration Discharge Plan Discharge Clinical Impression: Acute anterior epistaxis Patient Disposition: Home, Self-Care Condition: Improved Instructions: Nosebleed (ED) Additional Instructions: Take it easy for the next few days to allow this area to stabilize. Call Dr. Wise in tomorrow and arrange for follow-up to have the packing removed. You may continue to have an occasional drip from the packing material. If you have recurrent rapid bleeding from the nose, come back to the ER. Prescriptions: No Action atorvastatin 10 mg tablet 10 mg PO HS tamsulosin 0.4 mg capsule 0.4 mg PO DAILY finasteride 5 mg tablet 5 mg PO DAILY fexofenadine [Pam Allergy] 60 mg tablet 60 mg PO Q12H Tylenol Extra Strength 500 mg powder in packet 500 mg PO Q6H PRN pantoprazole 40 mg tablet,delayed release (DR/EC) 40 mg PO BID Patient Comments: TAKE 1 TABLET BY MOUTH TWICE DAILY BEFORE MEALS lisinopril 10 mg tablet 10 mg PO DAILY gabapentin 300 mg capsule 300 mg PO DAILY escitalopram oxalate 5 mg tablet 5 mg PO DAILY aspirin [Adult Aspirin Regimen] 81 mg tablet,delayed release (DR/EC) 81 mg PO DAILY Follow Up/Referrals: Josias Aden MD [Primary Care Provider] - Stand Alone Forms: [employer] Info Instructions
--- OUTSIDE RECORDS SUMMARY | 2024-06-11 16:33 | XMS_ITS | Continuity of Care Document ---
Author Name [facility] Organization [facility] Care Team Providers Care Roguer Name Role Phone [facility] Unavailable Unavailable Problems Combined list of problems [...] [facility] SENSORNEUR HEARING LOSS NOS Active Condition [facility] SURGERY Active Condition Dec 21 12 Entered By: MELLISA DOLL Comment: SP cholycystectom y, ventral hernia repair, tonsillectomy, Dec 22, 2011 Entered By: MELLISA DOLL Comment: SP appendectomy, right KAYLA times two, left KAYLA,Dec 22, 2011 Entered By: MELLISA DOLL Comment: SP right nephrectomy, partial colectomy [facility] Tinnitus * (ICD-9-CM 388.30) Active Condition [facility] Medications Combined list of outpatient medications [...] ORAL ACTIVE NIELS WAYNE 2011 [facility] KRUGER IPRATROPIUM BR 0.03% SOLN,SPRAY, NASAL SPRAY 1 SPRAY IN EACH NOSTRIL EVERY DAY NEEDED NASAL ACTIVE NIELS WAY[place] 2011 [facility] KRUGER OMEPRAZOLE 20MG CAP,EC TAKE 1 CAPSULE BY MOUTH DAILY ORAL ACTIVE NIELS WAY[place] 2011 [facility] KRUGER TAMSULOSIN HCL 0.4MG CAP TAKE 1 CAPSULE BY MOUTH DAILY ORAL ACTIVE NIELS WAY[place] 2011 [facility]CI KRUGER Immunizations Combined list of available immunizations from the Department of Defense and 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 Immunization Series Date Given Administered By Site Reaction Lot Number CVX Code Drug Dress Cutter Status Comments Source INFLUENZA, UNSPECIFIED FORMULATION 2011 88 complet ed [facility] TD(ADULT) UNSPECIFIED FORMULATION 2011 139 complet ed [employer]i Pastuer [id number] [facility] ZOSTER LIVE 2010 121 complet ed [facility] Social History Combined list of available smoking, tobacco, and other social history from Department of Defense and 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 Social History Type Response Date Comment Mario andrade Tobacco smoking status NHIS FORMER TOBACCO USER 7Y OR GREATER 12/22/2011 [facility] KRUGER
--- OUTSIDE RECORDS SUMMARY | 2024-06-11 16:33 | XMS_ITS | Clinical Summary ---
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 vertebral artery stenosis 69361122 (SNOMED CT) Active Simone Becerril MD Vertebral artery stenosis Subclavian artery stenosis, left 878929659 (SNOMED CT) Active Simone Becerril MD Subclavian artery stenosis Proximal muscle weakness 822233004 (SNOMED CT) Active Umu Roberto Proximal muscle weakness Facial paresthesia, left 78165668 (SNOMED CT) 05/25 Active 05/27 Simone Becerril MD Facial paresthesia Vertebral basilar insufficiency 87964072 (SNOMED CT) 05/25 Active 05/27 Simone Becerril MD Basilar artery syndrome Vertebral artery stenosis 04010115 (SNOMED CT) 05/25 Removed 05/25 Simone Becerril MD Vertebral artery stenosis BPPV 088006055 (SNOMED CT) 05/25 Active 05/25 Simone Becerril MD Benign paroxysmal positional vertigo Medications Medication Instructions Start Date Stop Date Generic Name NDC Provider PLAVIX 75 MG TABS Take 1 tablet by mouth once a day ; stop aspirin 1 clopidogrel [id number] Simone Becerril MD CLOPIDOGREL BISULFATE 75 MG TABS TAKE 1 TABLET BY MOUTH EVERY DAY. STOP ASPIRIN 3 clopidogrel 24958162063 Simone Becerril MD FLOMAX 0.4 MG CAPS tamsulosin 62837460954 Simone Becerril MD LIPITOR 10 MG TABS atorvastatin 38323224420 Simone Becerril MD PANTOPRAZOLE SODIUM 20 MG TBEC pantoprazole 23168888418 Simone Becerril MD GABAPENTIN 600 MG TABS 100 mg bid gabapentin 86113393402 Simone Becerril MD PLAVIX 75 MG TABS Take 1 tablet by mouth once a day ; stop aspirin 1 clopidogrel 25343267312 Simone Becerril MD Medications Administered No information available. Allergies, Adverse Reactions, Alerts Observed no known allergies at Results Date Name Value Unit Range Flag Description Internal Other: Observation data from Authorization.pdf HIECONSENT Y Consent To Release information to the Health Information Exchange ([employer]) Internal Other: Verbal Autho rization/Emergency Contact - [...] Procedures Code Procedure Name Date Entry Date [facility]-[id number] Documentation of current medicatio ns ORDERS Physical Therapy ORDERS CK (Creatine Kinase) Total 2 ORDERS T4 Free Direct ORDERS TSH ORDERS Follow up [facility]-[id number] Documentation of current medicatio ns ORDERS Patient Instructions ORDERS CTA-Neck W/ ORDERS CTA-Head W/ ORDERS CTA-Neck W/ ORDERS CTA-Head W/ ORDERS Instructions for Staff 08/25 ORDERS Follow up in clinic or telemedicine with provider or MICKIE [facility]-[id number] Documentation of current medicatio ns ORDERS Vestibular Therapy 1 Vital Signs Date Name Value Unit Description Heart Rate 68 /min pulse rate Immunizations No information available. Advance Directives No information available.
--- OUTSIDE RECORDS SUMMARY | 2024-06-11 16:33 | XMS_ITS | Clinical Summary ---
Author Organization [facility] Address [address] [place] [address] Care Team Providers Care Credit Verification Clerk Name Role Phone Josias Aden MD Primary Care Provider Nohemi Hobbs RN Unavailable Tano Escobar MD Unavailable [phone] Alivia Zamora MD Unavailable rBittani Bautista MBBS Unavailable [phone] EschEri RN Unavailable Kenya Glez HEAD ORTHOPEDIC TEAM PHYSICIAN Unavailable Lety Vargas MD Unavailable Jesus Frederick HOUSE OFFICER Unavailable [phone] Allergies Active Allergy Reactions Criticality Noted [...] 09/27/2023: Left elbow; Malignant Melanoma: Referral to [facility] [place] - excision with Surgical Oncology Maximum depth [...] Type Department Care Team Description 06/10/2024 [place] [facility] [place] [address] [place] [address] Josias Aden MD Refill Request (Tamsulosin) 05/27/2024 2:10 PM MACHINE CARTON MARKER [place] [facility] [place] [address] [place] [address] Josias Aden MD Follow Up (Blood pressure ) 05/26/2024 Travel 05/21/2024 [address]phone [address] [place] [address] Lety Vargas MD Appointment 05/21/2024 Travel 05/17/2024 Telephone [facility] [place] [address] [place] [address] Josias Aden MD Results 05/16/2024 1:00 PM MACHINE CARTON MARKER Orders Only [facility] [place] [address] [place] [address] Lab, Farm Lab 05/16/2024 Travel 05/08/2024 2:00 PM MACHINE CARTON MARKER Office Visit [address] [place] [address] Lety Vargas MD 05/08/2024 Travel 05/07/2024 Telephone [facility] [place] [address] [place] [address] Josias Aden MD Concerns 05/07/2024 Nurse Triage [facility] [place] [address] [place] [address] Josias Aden MD Questions 05/07/[address] [place] [address] Nafisa Haines carpenter rough 05/06/2024 1:45 PM MACHINE CARTON MARKER Orders [place] [facility] [place] [address] [place] [address] Lab, Farm Lab 05/06/2024 Travel 05/03/2024 7:10 AM MACHINE CARTON MARKER - 05/03/2024 11:59 PM MACHINE CARTON MARKER Hospital Encounter [facility] [address] [place] [address] Kenya Glez HEAD ORTHOPEDIC TEAM PHYSICIAN Malignant melanoma, unspecified site (HC); 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 (HC) 05/03/2024 Travel 04/24/2024 Nurse Triage [facility] [place] [address] [place] [address] Josias Aden MD Low Blood Pressure 04/23/2024 [address]phone [id number] [place] [address] Josias Aden MD Appointment Request (STAT referral) 04/22/[address] [address] Josias Aden MD Hospital F/U (EMERGENCY REFERRAL NEEDED FOR ENT) 04/18/2024 Travel 04/15/2024 Telephone [facility] [address] [place] [address] Jasmin Chowdary MD Results 04/09/2024 1:10 PM MACHINE CARTON MARKER Office Visit [facility] [place] [address] [address] Alivia Zamora MD Derm Problem (FBSE) 04/09/2024 8:45 AM MACHINE CARTON MARKER [place] [facility] [place] [address] [place] [address] Josias Aden MD Medicare ANNUAL (subsequent) Visit (Patient has been having nose bleeds) 04/09/2024 Travel 04/07/2024 Travel 03/28/2024 Telephone [facility] [place] [address] [address] Kenya Glez HEAD ORTHOPEDIC TEAM PHYSICIAN Appointment from Last 3 Months Immunizations Immunization [...] Comments Blood Pressure 158/78 05/27/2024 2:13 PM MACHINE CARTON MARKER Pulse 90 05/27/2024 2:13 PM MACHINE CARTON MARKER Temperature 36.4 C (97.6 F) 05/08/2024 2:03 PM MACHINE CARTON MARKER Respiratory Rate 18 05/08/2024 2:03 PM MACHINE CARTON MARKER Oxygen Saturation 93% 05/08/2024 2:03 PM MACHINE CARTON MARKER Inhaled Oxygen Concentration - - Weight 78.6 kg (173 lb 3.2 oz) 05/27/2024 2:13 P M MACHINE CARTON MARKER Height 172.7 cm (5' 8) 05/08/2024 2:03 PM MACHINE CARTON MARKER Body Mass Index 26.33 05/08/2024 2:03 PM MACHINE CARTON MARKER Plan of Treatment Upcoming Encounters Date Type Department Care Team (Late st Contact Info) Description 07/08/2024 1:15 PM CDT Office Visit [facility] [address] [id number] [place] [address] [place] [address] 07/29/2024 11:30 AM CDT Orders Only [facility] [place] [address] [place] [address] Lab, Farm 08/02/2024 1:00 PM CDT Appointment [facility] [address] [place] [address] 08/08/2024 12:45 PM CDT Office Visit [facility] [place] [address] [facility] [address] [place] [address] Kenya Glez, HEAD ORTHOPEDIC TEAM PHYSICIAN [address] [facility] [place] [address] Health Maintenance Due Date Last Done Comments [...] history exists Medical Devices Implanted Type Area Rooming House Keeper Device Identifier Shelf Expiration Date Model / Serial / Lot Stent Uret [id number] Percuflex Hydroplus - [id number] Implanted:Qty : 1 on 10/27/2023 by Deacon Arias MD at [facility] Uro Implants Left: Ureter [facility] Urology 05/10/2026 [id number] / / [id number] Procedures Procedure Name Priority Date/Time Associated Diagnosis Comments BASIC METABOLIC PANEL Routine 05/16/2024 12:48 PM MACHINE CARTON MARKER Hyponatremia CBC WITH AUTO DIFFERENTIAL Routine 05/06/2024 1:29 PM MACHINE CARTON MARKER Malignant melanoma, unspecified site (HC) 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 (HC) COMP METABOLIC PANEL Routine 05/06/2024 1:29 PM MACHINE CARTON MARKER Malignant melanoma, unspecified site (HC) 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 (HC) PET CT WHOLE BODY INITIAL TREAT Routine 05/03/2024 9:15 AM MACHINE CARTON MARKER Malignant melanoma, unspecified site (HC) 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 (HC) PATH TISSUE EXAM Routine 04/09/2024 1:15 PM MACHINE CARTON MARKER Neoplasm of uncertain behavior of skin from Last 3 Months Results * (ABNORMAL) BASIC METABOLIC PANEL (05/16/2024 12:48 PM MACHINE CARTON MARKER) GLUCOSE 78 65 - 99 mg/dL REMOTV-W omalia Lin Comment: Fasting reference interval UREA [...] BLOOD SPECIMEN / Unknown 05/16/2024 12:48 PM MACHINE CARTON MARKER 05/16/2024 12:49 PM MACHINE CARTON MARKER us Josias Aden MD CHEMISTRY Final Resul t [facility] [address] [place] [address], [address] [address] * (ABNORMAL) CBC AND DIFFERENTIAL (05/06/2024 1:29 PM MACHINE CARTON MARKER) Pathologist [facility] WHITE BLOOD CELL COUNT 9.0 3.8 - [...] BLOOD SPECIMEN / Unknown 05/06/2024 1:29 PM MACHINE CARTON MARKER 05/06/2024 1:30 PM MACHINE CARTON MARKER us Kenya Glez NP HEMATOLOGY Final Result [facility] [address] [place] [address], [facility] [address] [place] [phone] * (ABNORMAL) COMP METABOLIC PANEL (05/06/2024 1:29 PM MACHINE CARTON MARKER) [facility] GLUCOSE 93 65 - 99 mg/dL REMOTV anthony Lin Comment: Fasting reference interval UREA NITROGEN (BUN) 14 7 - 25 mg/dL [facility] omalia Turnere CREATININE 1.35(H) 0.70 - 1.22 [...] BLOOD SPECIMEN / Unknown 05/06/2024 1:29 PM MACHINE CARTON MARKER 05/06/2024 1:30 PM MACHINE CARTON MARKER us Kenya Glez NP CHEMISTRY Final Result [facility] [address] [place] [address], [facility] [address] [place] [address] * PET CT WHOLE BODY INITIAL TREAT (05/03/2024 9:15 AM MACHINE CARTON MARKER) Anatomical Region Laterality Modality Positron Emissio n Tomography (PET) 05/03/2024 9:15 AM MACHINE CARTON MARKER Impressions 05/03/2024 3:19 PM MACHINE CARTON MARKER 1. An asymmetric mildly enlarged left axillary lymph node with only minimal uptake is indeterminate although probably inflammatory. A melanoma metastasis is not excluded although would typically have a much greater degree of FDG activity. If desired, ultrasound-guided biopsy is feasible for more definitive diagnosis. 2. Otherwise no evidence of FDG avid malignancy or metastasis. Narrative 05/03/2024 3:19 PM MACHINE CARTON MARKER For Patients: As a result of the [...] * PATH TISSUE EXAM (04/09/2024 1:15 PM MACHINE CARTON MARKER) Case Report Pathology Report Case: [id number] Authorizing Provider: Alivia Zamora MD Collected: 04/09/2024 1315 Ordering Location: [facility] Received: 04/09/[address] [place] [address] Pathologist: Enoch Gerard MD Specimen: Skin, left lateral upper arm 04/12/2024 4:24 PM [facility] Final Diagnosis A) SKIN, LEFT LATERAL UPPER ARM, BIOPSY: 1. Lentiginous compound nevus with moderate atypia and associated dermal fibrosis, consistent with prior trauma a. Margin status: Positive (peripheral) 2. No evidence of malignancy 04/12/2024 4:24 PM [facility] Comment A) Incomplete sampling of melanocytic proliferations may impair accurate diagnosis. Clinical correlation with the overall size of the lesion, and presence of remaining or recurring pigment, is required for optimal treatment. 04/12/2024 4:24 PM [facility] Clinical Information A) brown macule with irregular juarez pigment, adjacent but clearly separate from melanoma excision scar. favor traumatized nevus, r/o malignancy 04/12/2024 4:24 PM [facility] Gross Description A) Received in formalin, labeled with the patient's name and left lateral upper arm, is a 0.8 x 0.6 cm skin biopsy. There is a 0.5 x 0.3 cm flat brown-black lesion. The specimen is inked red, trisected and entirely submitted in one cassette. [facility] 04/10/2024 04/12/2024 4:24 PM [facility] Microscopic Description The final diagnosis is [...] confirmed on tissue sections. 04/12/2024 4:24 PM MACHINE CARTON MARKER [facility] Additional Information Interpreted at [facility] Central Laboratory - [address], [place] [address] 04/12/2024 4:24 PM MACHINE CARTON MARKER [facility] ENTRAL LAB[facility] Other SPECIMEN FROM SKIN / Unknown Non-Blood / Unknown 04/09/2024 1:15 PM MACHINE CARTON MARKER 04/09/2024 3:31 PM MACHINE CARTON MARKER us Alivia Zamora MD PATHOLOGY/CYTOLOGY Final Result [facility] 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 Healthcare Directive 05/04/2019 020 * Full Code (Latest Code Status on File) Date Activated Date Inactivated Comments 10/27/2023 7:45 AM 10/27/2023 2:37 PM Question Answer Comments Code Status Discussion: Reviewed Preferences * Full Code Date Activated Date Inactivated Comments 10/26/2023 12:13 PM 10/26/2023 7:07 PM Question Answer Comments Code Status Discussion: Reviewed Preferences Care Teams Credit Verification Clerk Relationship Specialty [place] [address] [place] [address] PCP - General Family Practice 05/31/23 Nohemi Hobbs, RN [address] [address] Nurse Navigator - Oncology Registered Nurse 10/03/23 Tano Escobar MD [address] [place] [address] Surgical Oncologist Surgery - Oncology 10/03/23 Alivia Zamora MD [address] [facility] [address] [place] [address] Dermatology Dermatology 10/04/23 Brittani Bautista MBBS [address] [place] [address] Cardiovascular Disease 10/12/23 Eri Young RN [address] [place], [place] [phone] Nurse Navigator - Oncology Registered Nurse 11/29/23 Kenya Glez, HEAD ORTHOPEDIC TEAM PHYSICIAN [address] [place], [place] [phone] Nurse Practitioner Hematology and Oncology 11/30/23 Lety Vargas MD [address] [place], [place] [phone] Medical Oncologist Hematology and Oncology 11/30/23 Jesus Frederick LSW [address] [place] [address] Mobile Home Park Manager Oncology 02/22/24
[2024-06-11 16:47] VITALS: BP 164/85; PULSE 90; RESP 16; O2SAT 95
[2024-06-11] MEDS: OXYMETAZOLINE 0.05% NASAL SPRAY 1 SPRAY NOSTRIL-B (16:54)
== END 2024-06-11 17:36 | disposition home or self-care (01) ==
PROVIDERS: Emergency Provider Emergency Medicine; PCP Family Medicine
DX: R04.0 Epistaxis (principal)
CPT/HCPCS: 30901; 99283; 99284; A9270

== ENCOUNTER 2024-10-31 09:15 | Outpatient (RCR) | payer MEDICARE, OTHER, SELFPAY | END 2024-12-19 12:34 | disposition home or self-care (01) | PROVIDERS: PCP Family Medicine; Visit Provider Nurse Practitioner Family | DX: I89.0 Lymphedema, not elsewhere classified (principal); C43.62 Malignant melanoma of left upper limb, including shoulder; Z51.89 Encounter for other specified aftercare | CPT/HCPCS: 97140; 97166; 97535 ==